=== PATIENT | female | born 1945 | race Caucasian/White ===

== ENCOUNTER 2018-11-04 12:44 | Inpatient (IN) ==
[2018-11-04] MEDS ORDERED: Bisacodyl 10 MG RECTAL SUPPOSITORY RC PRN (15:55)
[2018-11-04] MEDS ORDERED: INSULIN ASPART 5 UNIT SQ SCH (17:00)
[2018-11-04] MEDS: Insulin LISPRO 300 UNITS/3 ML VIAL SQ SCH ×3 (17:41→21:24)
[2018-11-04] MEDS: *HR* OxyCODONE/APAP 5/325 TABLET PO PRN (17:41)
[2018-11-04] MEDS: *HR* Glimepiride 2 MG TABLET PO SCH (21:22)
[2018-11-04] MEDS: Gabapentin 300 MG CAPSULE PO SCH (21:23)
[2018-11-04] MEDS: Amoxicillin 250 MG CHEWABLE TABLET PO SCH (21:23)
[2018-11-04] MEDS: Insulin DETEMIR 100 UNIT/ML X5UNITS SQ SCH (21:23)
[2018-11-04] MEDS: cloNIDine HCl 0.1 MG TABLET PO SCH (21:23)
[2018-11-04] MEDS: Nystatin POWDER 30 GM BOTTLE TP SCH (21:39)
[2018-11-05] MEDS: *HR* Enoxaparin 30 MG/0.3 ML SYRINGE SQ SCH (05:53)
[2018-11-05 07:22] LABS: Basophils # 0.1 K/mcL (0.0-0.2); Basophils % 0.5 %; Eosinophils # 0.6 K/mcL (0.0-0.6); Eosinophils % 3.5 %; Hematocrit 27.9 % (35.3-44.9); Hemoglobin 9.1 g/dL (11.5-15.4); Immature Granulocytes % 13.5 % (0-4); Lymphocytes # 3.1 K/mcL (0.6-4.6); Lymphocytes % 18.9 %; Mean Corpuscular HGB Conc 32.6 g/dL (31.6-35.5); Mean Corpuscular Hemoglobin 29.4 pg (28.0-33.3); Mean Corpuscular Volume 90.3 fL (83.0-100.0); Monocytes # 1.4 K/mcL (0.0-1.3); Monocytes % 8.5 %; Neutrophils # 9.1 K/mcL (1.6-8.9); Nucleated Red Blood Cells 0.3 /100 WBC (0); Platelet Count 539 K/mcL (140-400); Red Blood Count 3.09 M/mcL (3.82-4.97); Red Cell Distribution Width 14.4 % (11.5-14.5); Segmented Neutrophils % 55.1 %; White Blood Count 16.5 K/mcL (4.3-11.1)
[2018-11-05] MEDS: Insulin LISPRO 300 UNITS/3 ML VIAL SQ SCH ×6 (07:58→21:33)
[2018-11-05 08:11] LABS: Albumin 2.7 g/dL (3.5-5.7); Albumin/Globulin Ratio 0.8 (1.1-2.2); Bilirubin,Total 0.4 mg/dL (0.3-1.0); Calcium 9.5 mg/dL (8.6-10.3); Globulin 3.5 g/dL (2.4-3.5); Magnesium 1.5 mg/dL (1.6-2.6); Potassium 4.1 mEq/L (3.5-5.1); Total Protein 6.2 g/dL (6.4-8.9)
[2018-11-05 08:25] LABS: Platelet Estimate Increased (Normal)
[2018-11-05] MEDS ORDERED: Fluconazole 100 MG TABLET PO SCH (09:00)
[2018-11-05] MEDS: *HR* OxyCODONE/APAP 5/325 TABLET PO PRN ×4 (09:00→21:30)
[2018-11-05] MEDS: Nystatin POWDER 30 GM BOTTLE TP SCH ×4 (09:00→21:33)
[2018-11-05] MEDS: Amoxicillin 250 MG CHEWABLE TABLET PO SCH ×3 (09:01→21:32)
[2018-11-05] MEDS: cloNIDine HCl 0.1 MG TABLET PO SCH ×2 (09:01→21:32)
[2018-11-05] MEDS: Cholecalciferol (D-3) 1,000 UNIT (25MCG) TABLET PO SCH (09:01)
[2018-11-05 09:22] LABS: Folate 12.1 ng/mL (3.0-16.0)
--- NOTE | 2018-11-05 12:32 | Internal Med History&Physical ---
Date of Encounter: 11/05/18 Time of Encounter: 12:00 Assessment and Plan (1) Degloving injury of left lower leg Current visit: No Status: Acute Status post surgical repair with skin graft 10/24/2018. Continue present Rx. Qualifiers: Encounter type: initial encounter Qualified Code(s): S81.802A - Unspecified open wound, left lower leg, initial encounter (2) Anemia Current visit: Yes Status: Acute Anemia testing today showed iron 26, transferrin saturation 12%, transferrin 155, ferritin 200, B12 247, and folate 12.1. She will be given a B12 injection and start oral B12 supplement. Ferrous sulfate with ascorbic acid will be started. CBC will be monitored. Qualifiers: Anemia type: unspecified type Qualified Code(s): D64.9 - Anemia, unspecified (3) CKD (chronic kidney disease) stage 3, GFR 30-59 ml/min Current visit: Yes Status: Chronic Present since May 2014. Patient was unaware of this. Renal indices will be monitored. (4) Hypomagnesemia Current visit: Yes Status: Acute Magnesium level was 1.5 today. Supplemental magnesium will be given. (5) Diabetes Current visit: No Status: Chronic Hemoglobin A1c was 13.2% on 11/01/2018. Continue Amaryl, Levemir/Lantus, and Accu-Cheks with SSI. Qualifiers: Diabetes mellitus type: type 2 Diabetes mellitus meterman insulin use: with meterman use Diabetes mellitus complication status: with hyperglycemia Qualified Code(s): E11.65 - Type 2 diabetes mellitus with hyperglycemia; Z79.4 - FPC (current) use of insulin (6) HTN (hypertension) Current visit: No Status: Chronic Continue clonidine Qualifiers: Hypertension type: essential hypertension Qualified Code(s): I10 - Essential (primary) hypertension (7) UTI (urinary tract infection) Current visit: No Status: Suspected Continue amoxicillin Qualifiers: Urinary tract infection type: acute cystitis Hematuria presence: without hematuria Qualified Code(s): N30.00 - Acute cystitis without hematuria (8) TARA treated with BiPAP Current visit: No Status: Chronic Continue BiPAP at bedtime Internal Medicine - H&P: HPI Chief complaint: Leg laceration Admitted From: Hospital to Hospital Transfer Plans for Post Hospital Care: Home History of present illness: Ms. Fiore is a 73 year old female was hospitalized at [facility] October 24 after experiencing a complex degloving left lower leg laceration from a fall at [employer]. She underwent surgical repair with debridement, and complex closure with split thickness skin graft. A wound VAC was used initially but discontinued on postop day 7. She remained stable postoperatively and was discharged to [facility] swing bed for ongoing care needs. Merlyn skeletal history is significant otherwise for chronic low back pain. She has had bilateral carpal tunnel surgery. She denies gout or significant DJD. 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 - Social History Smoking Status: Never smoker Smokeless Tobacco Status: No Alcohol use: none Drug use: none - Family History Father Hx Family Cardiac Disorders: Yes Internal Medicine - H&P: Meds Glimepiride [Amaryl] 4 mg PO HS 10/24/18 [History] Insulin ASPART [NovoLOG] 5 unit SQ TIDWM 10/24/18 [History] Insulin Glargine [Lantus] 40 units SQ HS 10/24/18 [History] Rosuvastatin Calcium [Crestor] 10 mg PO DAILY 10/24/18 [History] cloNIDine HCl [CloNIDine HCl] 0.1 mg PO BID 10/24/18 [History] Cholecalciferol (D-3) [Vitamin D] 5,000 unit PO DAILY 10/25/18 [History] Amoxicillin [Amoxil] 500 mg PO TID capsule 11/04/18 [Rx] Bisacodyl [Dulcolax] 10 mg RC HS PRN supp.rect 11/04/18 [Rx] Clindamycin [Cleocin] 300 mg PO Q8HR capsule 11/04/18 [Rx] Docusate [Colace] 100 mg PO BID capsule 11/04/18 [Rx] Fluconazole [Diflucan] 200 mg PO DAILY udc 11/04/18 [Rx] Gabapentin [Neurontin] 300 mg PO HS capsule 11/04/18 [Rx] Insulin LISPRO [HumaLOG] 0 units SQ HS vial 11/04/18 [Rx] Insulin LISPRO [HumaLOG] 0 units SQ TIDAC vial 11/04/18 [Rx] Insulin LISPRO [HumaLOG] 10 units SQ TIDWM vial 11/04/18 [Rx] Meclizine [Antivert] 25 mg PO TID PRN tablet 11/04/18 [Rx] Metoprolol [Lopressor] 5 mg IVP Q6HR PRN vial 11/04/18 [Rx] Nystatin POWDER [Nystop] 1 appl TP TID bottle 11/04/18 [Rx] Polyethylene Glycol 3350 [MiraLAX] 17 gm PO DAILY powd.pack 11/04/18 [Rx] Allergy/AdvReac Type Severity Reaction Status Date / Time morphine Allergy Hives Verified 10/25/18 21:01 propoxyphene [From Darvon] Allergy Hives Verified 10/25/18 21:01 Sulfa (Sulfonamide Allergy Hives Verified 10/25/18 21:01 Antibiotics) latex AdvReac Rash Verified 10/29/18 08:33 All Systems PM: A 10-system review of systems was performed and is negative for pertinent findings except as documented above in the HPI. Review of systems: Gen.: Her weight has been stable for several months Cardiovascular: She has history of hypertension. She denies CA heart failure DVT or pulmonary embolus. She states she gets occasional chest pain on exertion which quickly resolves with rest. Respiratory: She is a lifelong nonsmoker and denies chronic lung disease. She has been diagnosed with TARA and prescribed BiPAP but states she does not use it regularly. GI: She has had cholecystectomy. She denies disorders of her liver or exocrine pancreas : She has had UTI in the past. She denies other kidney or bladder disorders. Neurologic: She denies large distribution strokes or seizures. Endocrine: She was diagnosed with DM 2 approximately 2003. She has hyperlipidemia but denies thyroid disease. Hematology/oncology: She was unaware she had anemia on labs after admission to [facility]. She denies internal malignancies or other blood disorders. Psychiatric: She has anxiety but denies depression or other mental health issues [place] skeletal: As per history of present illness - Constitutional Vitals: Temp Pulse Resp BP Pulse Ox 98.5 F 103 18 141/67 94 11/05/18 06:40 11/05/18 06:40 11/05/18 06:40 11/05/18 06:40 11/05/18 06:40 Exam: Gen.: She is a well-developed morbidly obese female sitting in a chair at bedside who appears in no acute distress HEENT: Head is atraumatic and normocephalic. Eyes: EOMI. There is no scleral icterus. Mouth: Mucosa is moist. Neck: Supple and nontender. There is no thyromegaly or adenopathy noted. Heart: Regular without murmurs gallops or ectopics Lungs: No wheezes or crackles are heard. Abdomen: She has a very large abdomen. It is soft and nontender to palpation. Exam is limited because she is in the seated position. Extremities: The right leg is presently wrapped in an elastic wrap over gauze which I did not remove. I examined the leg yesterday (unwrapped) which showed skin graft intact with minimal surface exudate. There is a eschar/necrotic area approximately 6-8 cm diameter in the mid anterior calf area. Surgical alex are in place. There is 3-4+ edema of the lower legs and dorsum of the feet bilaterally. Neurologic: Mental status: She is talkative and a good historian. Cranial nerves: Smile is symmetric. Forehead wrinkles bilaterally. Tongue protrudes midline. EOMI. Motor: There is no pronator drift. Cerebellar: Finger to nose is intact bilaterally. Skin: Warm and dry Internal Med - H&P Results - Labs CBC & Chem 7: 11/05/18 06:48 11/05/18 06:48 Labs: Short CBC 11/05/18 Range/Units 06:48 WBC 16.5 H (4.3-11.1) K/mcL Hgb 9.1 L (11.5-15.4) g/dL Hct 27.9 L (35.3-44.9) % Plt Count 539 H (140-400) K/mcL Neutrophils # 9.1 H (1.6-8.9) K/mcL BMP 11/05/18 06:48 Sodium 140 Potassium 4.1 Chloride 106 Carbon Dioxide 25 BUN 28 H Creatinine 1.16 Glucose 137 H Calcium 9.5 Liver Function 11/05/18 Range/Units 06:48 Total Bilirubin 0.4 (0.3-1.0) mg/dL AST 20 (13-39) Units/L ALT 16 (7-52) Units/L Alkaline Phosphatase 304 H (34-104) Units/L Albumin 2.7 L (3.5-5.7) g/dL
[2018-11-05] MEDS ORDERED: Cyanocobalamin (B-12) 1,000 MCG/ML VIAL IM ONE (12:51)
[2018-11-05] MEDS ORDERED: Bumetanide 1 MG TABLET PO ONE (12:53)
[2018-11-05] MEDS: Magnesium Oxide 400 MG TABLET PO SCH (14:06)
[2018-11-05] MEDS: Bumetanide 1 MG TABLET PO SCH (16:58)
[2018-11-05] MEDS: *HR* Glimepiride 2 MG TABLET PO SCH (21:31)
[2018-11-05] MEDS: Gabapentin 300 MG CAPSULE PO SCH (21:32)
[2018-11-05] MEDS ORDERED: Insulin DETEMIR 100 UNIT/ML per UNIT SQ ONE (21:36)
[2018-11-05] MEDS: Insulin DETEMIR 100 UNIT/ML X5UNITS SQ SCH (21:37)
[2018-11-06 06:12] LABS: Hemoglobin 8.3 g/dL (11.5-15.4); Mean Corpuscular HGB Conc 29.6 g/dL (31.6-35.5); Mean Corpuscular Hemoglobin 28.2 pg (28.0-33.3); Mean Corpuscular Volume 95.2 fL (83.0-100.0); Mean Platelet Volume 9.3 fL (9.4-12.4); Nucleated Red Blood Cells 0.8 /100 WBC (0); Platelet Count 450 K/mcL (140-400); Red Blood Count 2.94 M/mcL (3.82-4.97); Red Cell Distribution Width 15.1 % (11.5-14.5); White Blood Count 16.9 K/mcL (4.3-11.1)
[2018-11-06] MEDS: *HR* Enoxaparin 30 MG/0.3 ML SYRINGE SQ SCH (06:25)
[2018-11-06] MEDS: Ascorbic Acid 500 MG TABLET PO SCH (06:25)
[2018-11-06 06:32] LABS: Calcium 9.3 mg/dL (8.6-10.3); Potassium 4.3 mEq/L (3.5-5.1)
[2018-11-06 07:47] LABS: Eosinophils # 0.7 K/mcL (0.0-0.6); Hypochromasia Present (Not Present); Lymphocytes # 4.4 K/mcL (0.6-4.6); Microcytosis Present (Not Present); Monocytes # 0.7 K/mcL (0.0-1.3); Neutrophils # 9.1 K/mcL (1.6-8.9); Platelet Estimate Increased (Normal); Polychromasia 1+ (Not Present)
[2018-11-06] MEDS ORDERED: Fluconazole 100 MG TABLET PO SCH (09:00)
[2018-11-06] MEDS: *HR* OxyCODONE/APAP 5/325 TABLET PO PRN ×2 (09:16→21:15)
[2018-11-06] MEDS: Magnesium Oxide 400 MG TABLET PO SCH (09:17)
[2018-11-06] MEDS: Amoxicillin 250 MG CHEWABLE TABLET PO SCH ×2 (09:17→18:41)
[2018-11-06] MEDS: Cholecalciferol (D-3) 1,000 UNIT (25MCG) TABLET PO SCH (09:17)
[2018-11-06] MEDS: Cyanocobalamin (B-12) 1,000 MCG TABLET PO SCH (09:17)
[2018-11-06] MEDS: cloNIDine HCl 0.1 MG TABLET PO SCH ×2 (09:17→21:04)
[2018-11-06] MEDS: Bumetanide 1 MG TABLET PO SCH ×2 (09:17→17:37)
[2018-11-06] MEDS: Insulin LISPRO 300 UNITS/3 ML VIAL SQ SCH ×4 (09:18→21:05)
[2018-11-06] MEDS: Nystatin POWDER 30 GM BOTTLE TP SCH ×3 (09:18→21:09)
--- NOTE | 2018-11-06 16:17 | Internal Med Progress Note ---
Date of Encounter: 11/06/18 Time of Encounter: 16:10 - Assessment and plan (1) Degloving injury of left lower leg Current Visit: No Status: Acute Assessment and plan: November 06. Continue amoxicillin and present wound care. Qualifiers: Encounter type: initial encounter Qualified Code(s): S81.802A - Unspecified open wound, left lower leg, initial encounter (2) Anemia Current Visit: Yes Status: Acute Assessment and plan: November 06. Continue oral B12 and ferrous sulfate with ascorbic acid. Qualifiers: Anemia type: unspecified type Qualified Code(s): D64.9 - Anemia, unspecified (3) CKD (chronic kidney disease) stage 3, GFR 30-59 ml/min Current Visit: Yes Status: Chronic Assessment and plan: November 06. Monitor renal indices. (4) Hypomagnesemia Current Visit: Yes Status: Acute Assessment and plan: November 06. Continue supplemental magnesium oxide. (5) Diabetes Current Visit: No Status: Chronic Assessment and plan: November 06. Hemoglobin A1c was 13.2% on 11/01/2018. Continue Amaryl, Levemir/Lantus, and Accu-Cheks with SSI. Qualifiers: Diabetes mellitus type: type 2 Diabetes mellitus penitentiary insulin use: with penitentiary use Diabetes mellitus complication status: with hyperglycemia Qualified Code(s): E11.65 - Type 2 diabetes mellitus with hyperglycemia; Z79.4 - clinical application consultant (current) use of insulin (6) HTN (hypertension) Current Visit: No Status: Chronic Assessment and plan: November 06. Continue clonidine. Qualifiers: Hypertension type: essential hypertension Qualified Code(s): I10 - Essential (primary) hypertension (7) UTI (urinary tract infection) Current Visit: No Status: Suspected Assessment and plan: November 06. Enterococcus faecalis found on urine culture 10/28/2018. She has now completed nine-day course of antibiotics. Discontinue amoxicillin. Qualifiers: Urinary tract infection type: acute cystitis Hematuria presence: without hematuria Qualified Code(s): N30.00 - Acute cystitis without hematuria (8) TARA treated with BiPAP Current Visit: No Status: Chronic Assessment and plan: November 06. Continue BiPAP at bedtime. - Subjective Interval history: November 06. She has no new complaints. - Constitutional Vitals: Temp Pulse Resp BP Pulse Ox 98.6 F 92 18 127/63 90 11/06/18 07:41 11/06/18 07:41 11/06/18 07:41 11/06/18 07:41 11/06/18 07:41 Exam: She is lying in bed resting comfortably. She is in no acute distress. Her affect is overall cheerful. The left lower leg is wrapped. She has no significant change in the edema of the dorsum of the feet. I reviewed her medications and lab results. Internal Medicine: Result - Labs CBC & Chem 7: 11/06/18 06:01 11/06/18 06:01 Labs: Short CBC 11/06/18 Range/Units 06:01 WBC 16.9 H (4.3-11.1) K/mcL Hgb 8.3 L (11.5-15.4) g/dL Hct 28.0 L (35.3-44.9) % Plt Count 450 H (140-400) K/mcL Neutrophils # 9.1 H (1.6-8.9) K/mcL BMP 11/06/18 06:01 Sodium 136 Potassium 4.3 Chloride 103 Carbon Dioxide 25 BUN 32 H Creatinine 1.31 H Glucose 191 H Calcium 9.3 Consult Discharge Plan - Plan Referrals: NONE,PCP [Primary Care Provider] - 1 week
[2018-11-06] MEDS ORDERED: Mag Hydrox/Al Hydrox/Simeth 30 ML UDC PO ONE (18:52)
[2018-11-06] MEDS: *HR* Glimepiride 2 MG TABLET PO SCH (21:04)
[2018-11-06] MEDS: Gabapentin 300 MG CAPSULE PO SCH (21:04)
[2018-11-06] MEDS: Insulin DETEMIR 100 UNIT/ML X5UNITS SQ SCH (21:05)
[2018-11-07] MEDS: *HR* Enoxaparin 30 MG/0.3 ML SYRINGE SQ SCH (06:06)
[2018-11-07] MEDS: Ascorbic Acid 500 MG TABLET PO SCH (06:07)
[2018-11-07 07:30] LABS: Hematocrit 26.3 % (35.3-44.9); Hemoglobin 8.5 g/dL (11.5-15.4); Mean Corpuscular HGB Conc 32.3 g/dL (31.6-35.5); Mean Corpuscular Hemoglobin 29.1 pg (28.0-33.3); Mean Corpuscular Volume 90.1 fL (83.0-100.0); Mean Platelet Volume 8.7 fL (9.4-12.4); Nucleated Red Blood Cells 0.6 /100 WBC (0); Platelet Count 490 K/mcL (140-400); Red Blood Count 2.92 M/mcL (3.82-4.97); Red Cell Distribution Width 14.9 % (11.5-14.5); White Blood Count 19.3 K/mcL (4.3-11.1)
[2018-11-07] MEDS: Insulin LISPRO 300 UNITS/3 ML VIAL SQ SCH ×4 (07:43→21:26)
[2018-11-07 08:09] LABS: Eosinophils # 0.4 K/mcL (0.0-0.6); Monocytes # 1.2 K/mcL (0.0-1.3)
[2018-11-07 08:10] LABS: Dohle Bodies Present (Not Present); Lymphocytes # 3.1 K/mcL (0.6-4.6); Neutrophils # 13.1 K/mcL (1.6-8.9); Platelet Estimate Increased (Normal)
[2018-11-07] MEDS: *HR* OxyCODONE/APAP 5/325 TABLET PO PRN ×4 (08:18→23:19)
[2018-11-07] MEDS: Bumetanide 1 MG TABLET PO SCH ×2 (08:18→16:26)
[2018-11-07] MEDS: Magnesium Oxide 400 MG TABLET PO SCH (08:18)
[2018-11-07] MEDS: cloNIDine HCl 0.1 MG TABLET PO SCH ×2 (08:19→21:26)
[2018-11-07] MEDS: Cyanocobalamin (B-12) 1,000 MCG TABLET PO SCH (08:19)
[2018-11-07] MEDS: Cholecalciferol (D-3) 1,000 UNIT (25MCG) TABLET PO SCH (08:20)
[2018-11-07] MEDS: Nystatin POWDER 30 GM BOTTLE TP SCH (08:20)
--- NOTE | 2018-11-07 14:52 | Internal Med Progress Note ---
Date of Encounter: 11/07/18 Time of Encounter: 14:35 - Assessment and plan (1) Degloving injury of left lower leg Current Visit: No Status: Acute Assessment and plan: November 06. Continue amoxicillin and present wound care. November 07. Continue clindamycin and present wound care. Follow-up with surgeon will be arranged since leukocytosis is gradually worsening. Qualifiers: Encounter type: initial encounter Qualified Code(s): S81.802A - Unspecified open wound, left lower leg, initial encounter (2) Anemia Current Visit: Yes Status: Acute Assessment and plan: November 06. Continue oral B12 and ferrous sulfate with ascorbic acid. Qualifiers: Anemia type: unspecified type Qualified Code(s): D64.9 - Anemia, unspecified (3) CKD (chronic kidney disease) stage 3, GFR 30-59 ml/min Current Visit: Yes Status: Chronic Assessment and plan: November 06. Monitor renal indices. November 07. BUN and creatinine stable at 31 and 1.19 respectively with estimated GFR 45. Continue present Rx. (4) Hypomagnesemia Current Visit: Yes Status: Acute Assessment and plan: November 06. Continue supplemental magnesium oxide. November 07. Check magnesium level in a.m. (5) Diabetes Current Visit: No Status: Chronic Assessment and plan: November 06. Hemoglobin A1c was 13.2% on 11/01/2018. Continue Amaryl, Levemir/Lantus, and Accu-Cheks with SSI. 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 Continue clonidine. November 07. Continue clonidine and Lopressor Qualifiers: Hypertension type: essential hypertension Qualified Code(s): I10 - Essential (primary) hypertension (7) UTI (urinary tract infection) Current Visit: No Status: Suspected Assessment and plan: November 06. Enterococcus faecalis found on urine culture 10/28/2018. She has now completed nine-day course of antibiotics. Discontinue amoxicillin. Qualifiers: Urinary tract infection type: acute cystitis Hematuria presence: without hematuria Qualified Code(s): N30.00 - Acute cystitis without hematuria (8) TARA treated with BiPAP Current Visit: No Status: Chronic Assessment and plan: November 06. Continue BiPAP at bedtime. (9) Zinc deficiency Current Visit: Yes Status: Acute Assessment and plan: Zinc level low at 40.9. Start oral zinc sulfate. - Subjective Interval history: November 06. She has no new complaints. November 07. She has no new complaints. - Constitutional Vitals: Temp Pulse Resp BP Pulse Ox 98.4 F 90 18 134/66 92 11/07/18 06:27 11/07/18 06:27 11/07/18 06:27 11/07/18 06:27 11/07/18 06:27 Exam: She is resting comfortably in bed and appears in no acute distress. Her affect is overall cheerful. Right leg shows minimal change in erythema margins and there is fibrinous exudate scattered on the wound bed. Edema shows slight decrease overall. Groin and perineum dermatitis is widespread. I reviewed her medications and lab results. Internal Medicine: Result - Labs CBC & Chem 7: 11/07/18 07:20 11/07/18 07:20 Labs: Short CBC 11/07/18 Range/Units 07:20 WBC 19.3 H (4.3-11.1) K/mcL Hgb 8.5 L (11.5-15.4) g/dL Hct 26.3 L (35.3-44.9) % Plt Count 490 H (140-400) K/mcL Neutrophils # 13.1 H (1.6-8.9) K/mcL BMP 11/07/18 07:20 Sodium 136 Potassium 4.0 Chloride 102 Carbon Dioxide 29 BUN 31 H Creatinine 1.19 Glucose 109 H Calcium 9.0 Consult Discharge Plan - Plan Referrals: NONE,PCP [Primary Care Provider] - 1 week
[2018-11-07] MEDS: Ketoconazole 2% CRM 15 GM TUBE TP SCH ×2 (15:30→21:28)
[2018-11-07] MEDS ORDERED: Mag Hydrox/Al Hydrox/Simeth 30 ML UDC PO PRN (16:42)
[2018-11-07] MEDS: Lactobacillus 1 EACH CAP.SPRINK PO SCH (21:25)
[2018-11-07] MEDS: *HR* Glimepiride 2 MG TABLET PO SCH (21:26)
[2018-11-07] MEDS: Gabapentin 300 MG CAPSULE PO SCH (21:26)
[2018-11-07] MEDS: Insulin DETEMIR 100 UNIT/ML X5UNITS SQ SCH (21:27)
[2018-11-07] MEDS: Mag Hydrox/Al Hydrox/Simeth 30 ML UDC PO PRN (22:12)
[2018-11-08] MEDS: *HR* Enoxaparin 40 MG/0.4 ML SYRINGE SQ SCH (05:17)
[2018-11-08] MEDS: Ascorbic Acid 500 MG TABLET PO SCH (05:24)
[2018-11-08] MEDS: Ketoconazole 2% CRM 15 GM TUBE TP SCH ×2 (05:26→08:05)
[2018-11-08 06:09] LABS: Basophils # 0.1 K/mcL (0.0-0.2); Basophils % 0.7 %; Eosinophils # 0.7 K/mcL (0.0-0.6); Eosinophils % 3.8 %; Hemoglobin 8.3 g/dL (11.5-15.4); Immature Granulocytes % 7.1 % (0-4); Lymphocytes % 19.2 %; Mean Corpuscular HGB Conc 31.9 g/dL (31.6-35.5); Mean Corpuscular Hemoglobin 28.7 pg (28.0-33.3); Mean Platelet Volume 8.8 fL (9.4-12.4); Monocytes # 1.2 K/mcL (0.0-1.3); Monocytes % 6.9 %; Nucleated Red Blood Cells 0.4 /100 WBC (0); Platelet Count 504 K/mcL (140-400); Red Blood Count 2.89 M/mcL (3.82-4.97); Red Cell Distribution Width 14.9 % (11.5-14.5); Segmented Neutrophils % 62.3 %; White Blood Count 17.4 K/mcL (4.3-11.1)
[2018-11-08 06:36] LABS: Calcium 9.1 mg/dL (8.6-10.3); Magnesium 1.7 mg/dL (1.6-2.6); Potassium 4.1 mEq/L (3.5-5.1)
[2018-11-08 06:47] LABS: Lymphocytes # 3.3 K/mcL (0.6-4.6); Neutrophils # 10.8 K/mcL (1.6-8.9)
[2018-11-08] MEDS: Insulin LISPRO 300 UNITS/3 ML VIAL SQ SCH ×4 (07:48→22:35)
[2018-11-08] MEDS: *HR* OxyCODONE/APAP 5/325 TABLET PO PRN ×4 (08:04→22:28)
[2018-11-08] MEDS: cloNIDine HCl 0.1 MG TABLET PO SCH ×2 (08:04→22:28)
[2018-11-08] MEDS: Lactobacillus 1 EACH CAP.SPRINK PO SCH ×2 (08:04→22:27)
[2018-11-08] MEDS: Cyanocobalamin (B-12) 1,000 MCG TABLET PO SCH (08:04)
[2018-11-08] MEDS: Zinc Sulfate 220 MG CAPSULE PO SCH (08:04)
[2018-11-08] MEDS: Magnesium Oxide 400 MG TABLET PO SCH (08:04)
[2018-11-08] MEDS: Cholecalciferol (D-3) 1,000 UNIT (25MCG) TABLET PO SCH (08:05)
[2018-11-08] MEDS: Bumetanide 1 MG TABLET PO SCH ×2 (08:05→17:05)
[2018-11-08 08:09] LABS: Anisocytosis 1+ (Not Present); Polychromasia 1+ (Not Present)
[2018-11-08 08:10] LABS: Platelet Estimate Normal (Normal); Toxic Granulation Present (Not Present)
[2018-11-08] MEDS: Mag Hydrox/Al Hydrox/Simeth 30 ML UDC PO PRN ×4 (08:16→22:57)
--- NOTE | 2018-11-08 11:22 | Internal Med Progress Note ---
Date of Encounter: 11/08/18 Time of Encounter: 11:15 - Assessment and plan (1) Degloving injury of left lower leg Current Visit: No Status: Acute Assessment and plan: November 06. Continue amoxicillin and present wound care. November 07. Continue clindamycin and present wound care. Follow-up with surgeon will be arranged since leukocytosis is gradually worsening. November 08. Clindamycin will be discontinued and IV vancomycin initiated per surgeon recommendation. Topical gentamicin with Santyl will be started. Debridement surgery will be arranged. Qualifiers: Encounter type: initial encounter Qualified Code(s): S81.802A - Unspecified open wound, left lower leg, initial encounter (2) Anemia Current Visit: Yes Status: Acute Assessment and plan: November 06. Continue oral B12 and ferrous sulfate with ascorbic acid. Qualifiers: Anemia type: unspecified type Qualified Code(s): D64.9 - Anemia, unspecified (3) CKD (chronic kidney disease) stage 3, GFR 30-59 ml/min Current Visit: Yes Status: Chronic Assessment and plan: November 06. Monitor renal indices. November 07. BUN and creatinine stable at 31 and 1.19 respectively with estimated GFR 45. Continue present Rx. (4) Hypomagnesemia Current Visit: Yes Status: Acute Assessment and plan: November 06. Continue supplemental magnesium oxide. November 07. Check magnesium level in a.m. November 08. Magnesium level improved to 1.7. Continue present Rx. (5) Diabetes Current Visit: No Status: Chronic Assessment and plan: November 06. Hemoglobin A1c was 13.2% on 11/01/2018. Continue Amaryl, Levemir/Lantus, and Accu-Cheks with SSI. November 08. Accu-Cheks acceptable. Continue present Rx. 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 Continue clonidine. November 07. Continue clonidine and Lopressor Qualifiers: Hypertension type: essential hypertension Qualified Code(s): I10 - Essential (primary) hypertension (7) UTI (urinary tract infection) Current Visit: No Status: Suspected Assessment and plan: November 06. Enterococcus faecalis found on urine culture 10/28/2018. She has now completed nine-day course of antibiotics. Discontinue amoxicillin. Qualifiers: Urinary tract infection type: acute cystitis Hematuria presence: without hematuria Qualified Code(s): N30.00 - Acute cystitis without hematuria (8) TARA treated with BiPAP Current Visit: No Status: Chronic Assessment and plan: November 06. Continue BiPAP at bedtime. (9) Zinc deficiency Current Visit: Yes Status: Acute Assessment and plan: November 07. Zinc level low at 40.9. Start oral zinc sulfate. November 08. Continue zinc sulfate. (10) Candidiasis Current Visit: No Status: Acute Assessment and plan: November 08. The surgeon recommended use of nystatin powder instead of ketocon azole. - Subjective Interval history: November 06. She has no new complaints. November 07. She has no new complaints. November 08. She has no new complaints. She saw Dr. Richardson today who feels additional surgery for debridement is needed. - Constitutional Vitals: Temp Pulse Resp BP Pulse Ox 98.8 F 94 20 131/63 90 11/08/18 07:31 11/08/18 07:31 11/08/18 07:31 11/08/18 07:31 11/08/18 07:31 Exam: She is resting comfortably in bed and appears in no acute distress. Her affect is overall cheerful. Edema shows no significant change. I reviewed her medications and lab results. Internal Medicine: Result - Labs CBC & Chem 7: 11/08/18 05:52 11/08/18 05:52 Labs: Short CBC 11/08/18 Range/Units 05:52 WBC 17.4 H (4.3-11.1) K/mcL Hgb 8.3 L (11.5-15.4) g/dL Hct 26.0 L (35.3-44.9) % Plt Count 504 H (140-400) K/mcL Neutrophils # 10.8 H (1.6-8.9) K/mcL BMP 11/08/18 05:52 Sodium 135 L Potassium 4.1 Chloride 99 Carbon Dioxide 28 BUN 33 H Creatinine 1.24 H Glucose 155 H Calcium 9.1 Consult Discharge Plan - Plan Referrals: NONE,PCP [Primary Care Provider] - 1 week
[2018-11-08] MEDS: Fluconazole 100 MG TABLET PO SCH (22:27)
[2018-11-08] MEDS: *HR* Glimepiride 2 MG TABLET PO SCH (22:28)
[2018-11-08] MEDS: Gabapentin 300 MG CAPSULE PO SCH (22:28)
[2018-11-08] MEDS: Nystatin POWDER 30 GM BOTTLE TP SCH (22:30)
[2018-11-08] MEDS: Insulin DETEMIR 100 UNIT/ML X5UNITS SQ SCH (22:34)
[2018-11-09] MEDS: Gentamicin Oint 15 GM TUBE TP SCH ×2 (03:46→10:33)
[2018-11-09] MEDS: *HR* Enoxaparin 40 MG/0.4 ML SYRINGE SQ SCH (04:52)
[2018-11-09] MEDS: Ascorbic Acid 500 MG TABLET PO SCH (04:52)
[2018-11-09] MEDS: *HR* OxyCODONE/APAP 5/325 TABLET PO PRN ×4 (04:56→20:18)
[2018-11-09] MEDS: Mag Hydrox/Al Hydrox/Simeth 30 ML UDC PO PRN ×2 (04:57→12:09)
[2018-11-09] MEDS: Insulin LISPRO 300 UNITS/3 ML VIAL SQ SCH ×4 (08:02→20:16)
[2018-11-09] MEDS: Lactobacillus 1 EACH CAP.SPRINK PO SCH ×2 (08:03→20:17)
[2018-11-09] MEDS: Cyanocobalamin (B-12) 1,000 MCG TABLET PO SCH (08:03)
[2018-11-09] MEDS: Zinc Sulfate 220 MG CAPSULE PO SCH (08:03)
[2018-11-09] MEDS: Cholecalciferol (D-3) 1,000 UNIT (25MCG) TABLET PO SCH (08:04)
[2018-11-09] MEDS: Fluconazole 100 MG TABLET PO SCH ×2 (08:05→20:17)
[2018-11-09] MEDS: Bumetanide 1 MG TABLET PO SCH ×2 (08:05→18:22)
[2018-11-09] MEDS: cloNIDine HCl 0.1 MG TABLET PO SCH ×2 (08:06→20:17)
[2018-11-09] MEDS: Magnesium Oxide 400 MG TABLET PO SCH (08:06)
[2018-11-09] MEDS: Nystatin POWDER 30 GM BOTTLE TP SCH ×2 (10:35→15:57)
--- NOTE | 2018-11-09 17:31 | Internal Med Progress Note ---
Date of Encounter: 11/09/18 Time of Encounter: 17:25 - Assessment and plan (1) Degloving injury of left lower leg Current Visit: No Status: Acute Assessment and plan: Continue wound care follow up with his surgeon Qualifiers: Encounter type: initial encounter Qualified Code(s): S81.802A - Unspecified open wound, left lower leg, initial encounter (2) Heat rash Current Visit: Yes Status: Acute Assessment and plan: Try to keep it to air and not trap moisture (3) Candidiasis Current Visit: No Status: Acute Assessment and plan: Continue nystatin and Diflucan to use layers of sheets instead of checks that trap in the moisture, I think the rash is bad enough to need both oral and local antifungal (4) Morbid (severe) obesity due to excess calories Current Visit: No Status: Chronic Assessment and plan: causes a challenge with healing (5) UTI (urinary tract infection) Current Visit: No Status: Suspected Assessment and plan: Nine-day course of antibiotics finished was amoxicillin for enterococcus faecalis Qualifiers: Urinary tract infection type: acute cystitis Hematuria presence: without hematuria Qualified Code(s): N30.00 - Acute cystitis without hematuria (6) Thrombocytosis Current Visit: No Status: Acute Assessment and plan: Monitor (7) TARA treated with BiPAP Current Visit: No Status: Chronic Assessment and plan: Encourage BiPAP use (8) CKD (chronic kidney disease) stage 3, GFR 30-59 ml/min Current Visit: Yes Status: Chronic Assessment and plan: Monitor and encourage water (9) Zinc deficiency Current Visit: Yes Status: Acute Assessment and plan: Supplement - Time Spent With Patient Greater than 35 minutes - Subjective Interval history: 73-year-old female with a history of a degloving injury to left lower extremity status post split thickness skin graft. She was admitted [facility] from October 24 through . She was admitted here for wound care and rehabilitation. Covering for Dr. Cantor this is my first visit. She also has severe anemia around 8.6 chronic kidney disease hypomagnesemia DM 2, hypertension, urinary tract infection with Enterococcus faecalis, TARA with BiPAP on the zinc deficiency, candidiasis. I was asked to see the patient because of a worsening rash. candidiasis on her lower back and buttock right side. apparently she is on nystatin and fluconazole. But she also has rash further on her back that is in her folds. Answer questions concerns addressed - Constitutional Vitals: Temp Pulse Resp BP Pulse Ox 98.8 F 86 15 119/52 93 11/09/18 07:00 11/09/18 07:00 11/09/18 07:00 11/09/18 07:00 11/09/18 07:00 Exam: General: Alert and oriented, no acute distress Lungs: Clear to auscultation bilaterally without wheezing or crackles Heart: Regular rate and rythms without murmer or rubs Abdomen: Soft, nontender, Extremities: Left lower extremity had an Chuy wrap with bandage and the top of that he could see his alex and area that needs debrided. Skin her lower back with scolded and her right buttock large area of candidiasis, her upper back had petechial rash-like rash Internal Medicine: Result - Labs CBC & Chem 7: 11/08/18 05:52 11/08/18 05:52 Consult Discharge Plan - Plan Referrals: NONE,PCP [Primary Care Provider] - 1 week
[2018-11-09] MEDS: *HR* Glimepiride 2 MG TABLET PO SCH (20:17)
[2018-11-09] MEDS: Gabapentin 300 MG CAPSULE PO SCH (20:17)
[2018-11-09] MEDS: Insulin DETEMIR 100 UNIT/ML X5UNITS SQ SCH (20:18)
[2018-11-10] MEDS: *HR* OxyCODONE/APAP 5/325 TABLET PO PRN ×3 (03:37→18:55)
[2018-11-10] MEDS: Ascorbic Acid 500 MG TABLET PO SCH (06:07)
[2018-11-10] MEDS: *HR* Enoxaparin 40 MG/0.4 ML SYRINGE SQ SCH (06:07)
[2018-11-10] MEDS: Insulin LISPRO 300 UNITS/3 ML VIAL SQ SCH ×4 (07:46→20:04)
[2018-11-10] MEDS: Zinc Sulfate 220 MG CAPSULE PO SCH (09:22)
[2018-11-10] MEDS: Cyanocobalamin (B-12) 1,000 MCG TABLET PO SCH (09:23)
[2018-11-10] MEDS: Fluconazole 100 MG TABLET PO SCH ×2 (09:23→20:03)
[2018-11-10] MEDS: Lactobacillus 1 EACH CAP.SPRINK PO SCH ×2 (09:23→20:03)
[2018-11-10] MEDS: cloNIDine HCl 0.1 MG TABLET PO SCH ×2 (09:23→20:03)
[2018-11-10] MEDS: Cholecalciferol (D-3) 1,000 UNIT (25MCG) TABLET PO SCH (09:23)
[2018-11-10] MEDS: Magnesium Oxide 400 MG TABLET PO SCH (09:23)
[2018-11-10] MEDS: Bumetanide 1 MG TABLET PO SCH ×2 (09:23→17:13)
[2018-11-10] MEDS: Nystatin POWDER 30 GM BOTTLE TP SCH ×2 (09:24→20:10)
[2018-11-10] MEDS: Gentamicin Oint 15 GM TUBE TP SCH (09:24)
[2018-11-10] MEDS: Mag Hydrox/Al Hydrox/Simeth 30 ML UDC PO PRN (12:31)
[2018-11-10] MEDS: hydrOXYzine pamoate 25 MG CAPSULE PO PRN (17:13)
[2018-11-10] MEDS: Gabapentin 300 MG CAPSULE PO SCH (20:03)
[2018-11-10] MEDS: Insulin DETEMIR 100 UNIT/ML X5UNITS SQ SCH (20:04)
[2018-11-10] MEDS: *HR* Glimepiride 2 MG TABLET PO SCH (20:04)
[2018-11-11] MEDS: hydrOXYzine pamoate 25 MG CAPSULE PO PRN ×3 (04:00→20:12)
[2018-11-11] MEDS: *HR* OxyCODONE/APAP 5/325 TABLET PO PRN ×3 (04:00→20:11)
[2018-11-11] MEDS: Gentamicin Oint 15 GM TUBE TP SCH (05:32)
[2018-11-11] MEDS: Ascorbic Acid 500 MG TABLET PO SCH (05:32)
[2018-11-11] MEDS: *HR* Enoxaparin 40 MG/0.4 ML SYRINGE SQ SCH (05:33)
[2018-11-11] MEDS: Cholecalciferol (D-3) 1,000 UNIT (25MCG) TABLET PO SCH (09:20)
[2018-11-11] MEDS: Lactobacillus 1 EACH CAP.SPRINK PO SCH ×2 (09:20→20:12)
[2018-11-11] MEDS: Nystatin POWDER 30 GM BOTTLE TP SCH ×2 (09:21→20:13)
[2018-11-11] MEDS: Cyanocobalamin (B-12) 1,000 MCG TABLET PO SCH (09:21)
[2018-11-11] MEDS: cloNIDine HCl 0.1 MG TABLET PO SCH ×2 (09:21→20:12)
[2018-11-11] MEDS: Bumetanide 1 MG TABLET PO SCH ×2 (09:21→16:44)
[2018-11-11] MEDS: Zinc Sulfate 220 MG CAPSULE PO SCH (09:21)
[2018-11-11] MEDS: Magnesium Oxide 400 MG TABLET PO SCH (09:21)
[2018-11-11] MEDS: Fluconazole 100 MG TABLET PO SCH ×2 (09:21→20:12)
[2018-11-11] MEDS: Insulin LISPRO 300 UNITS/3 ML VIAL SQ SCH ×4 (09:22→20:13)
[2018-11-11] MEDS: Mag Hydrox/Al Hydrox/Simeth 30 ML UDC PO PRN (16:45)
--- NOTE | 2018-11-11 16:49 | Internal Med Progress Note ---
Date of Encounter: 11/11/18 Time of Encounter: 16:40 - Assessment and plan (1) Degloving injury of left lower leg Current Visit: No Status: Acute Assessment and plan: November 06. Continue amoxicillin and present wound care. November 07. Continue clindamycin and present wound care. Follow-up with surgeon will be arranged since leukocytosis is gradually worsening. November 08. Clindamycin will be discontinued and IV vancomycin initiated per surgeon recommendation. Topical gentamicin with Santyl will be started. Debridement surgery will be arranged. Qualifiers: Encounter type: initial encounter Qualified Code(s): S81.802A - Unspecified open wound, left lower leg, initial encounter (2) Anemia Current Visit: Yes Status: Acute Assessment and plan: November 06. Continue oral B12 and ferrous sulfate with ascorbic acid. November 11. Recheck labs in a.m. Qualifiers: Anemia type: unspecified type Qualified Code(s): D64.9 - Anemia, unspecified (3) CKD (chronic kidney disease) stage 3, GFR 30-59 ml/min Current Visit: Yes Status: Chronic Assessment and plan: November 06. Monitor renal indices. November 07. BUN and creatinine stable at 31 and 1.19 respectively with estimated GFR 45. Continue present Rx. November 11. Recheck labs in a.m. (4) Hypomagnesemia Current Visit: Yes Status: Acute Assessment and plan: November 06. Continue supplemental magnesium oxide. November 07. Check magnesium level in a.m. November 08. Magnesium level improved to 1.7. Continue present Rx. (5) Diabetes Current Visit: No Status: Chronic Assessment and plan: November 06. Hemoglobin A1c was 13.2% on 11/01/2018. Continue Amaryl, Levemir/Lantus, and Accu-Cheks with SSI. November 08. Accu-Cheks acceptable. Continue present Rx. 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 Continue clonidine. November 07. Continue clonidine and Lopressor Qualifiers: Hypertension type: essential hypertension Qualified Code(s): I10 - Essential (primary) hypertension (7) UTI (urinary tract infection) Current Visit: No Status: Suspected Assessment and plan: November 06. Enterococcus faecalis found on urine culture 10/28/2018. She has now completed nine-day course of antibiotics. Discontinue amoxicillin. Qualifiers: Urinary tract infection type: acute cystitis Hematuria presence: without hematuria Qualified Code(s): N30.00 - Acute cystitis without hematuria (8) TARA treated with BiPAP Current Visit: No Status: Chronic Assessment and plan: November 06. Continue BiPAP at bedtime. (9) Zinc deficiency Current Visit: Yes Status: Acute Assessment and plan: November 07. Zinc level low at 40.9. Start oral zinc sulfate. November 08. Continue zinc sulfate. (10) Candidiasis Current Visit: No Status: Acute Assessment and plan: November 08. The surgeon recommended use of nystatin powder instead of ketoconazole. November 09. Continue oral Diflucan and topical nystatin powder - Subjective Interval history: November 06. She has no new complaints. November 07. She has no new complaints. November 08. She has no new complaints. She saw Dr. Richardson today who feels additional surgery for debridement is needed. November 11. She has no new complaints. She was given Vistaril by Dr. Hillman over the weekend for itching. She states her pruritus has improved. - Constitutional Vitals: Temp Pulse Resp BP Pulse Ox 98.5 F 90 18 144/67 90 11/11/18 07:48 11/11/18 07:48 11/11/18 07:48 11/11/18 07:48 11/11/18 07:48 Exam: She is resting comfortably in bed and appears in no acute distress. Edema has lessened in her feet. I reviewed her medications and lab results. Internal Medicine: Result - Labs CBC & Chem 7: 11/08/18 05:52 11/08/18 05:52 Consult Discharge Plan - Plan Referrals: NONE,PCP [Primary Care Provider] - 1 week
[2018-11-11] MEDS: Gabapentin 300 MG CAPSULE PO SCH (20:11)
[2018-11-11] MEDS: *HR* Glimepiride 2 MG TABLET PO SCH (20:11)
[2018-11-11] MEDS: Insulin DETEMIR 100 UNIT/ML X5UNITS SQ SCH (20:12)
[2018-11-12] MEDS: *HR* OxyCODONE/APAP 5/325 TABLET PO PRN ×4 (06:10→20:32)
[2018-11-12] MEDS: Ascorbic Acid 500 MG TABLET PO SCH (06:11)
[2018-11-12] MEDS: *HR* Enoxaparin 40 MG/0.4 ML SYRINGE SQ SCH (06:11)
[2018-11-12 07:42] LABS: Basophils # 0.1 K/mcL (0.0-0.2); Eosinophils # 0.8 K/mcL (0.0-0.6); Eosinophils % 6.2 %; Hemoglobin 8.5 g/dL (11.5-15.4); Immature Granulocytes % 4.7 % (0-4); Lymphocytes # 3.1 K/mcL (0.6-4.6); Lymphocytes % 23.8 %; Mean Corpuscular HGB Conc 31.5 g/dL (31.6-35.5); Mean Corpuscular Hemoglobin 28.5 pg (28.0-33.3); Mean Corpuscular Volume 90.6 fL (83.0-100.0); Mean Platelet Volume 8.8 fL (9.4-12.4); Monocytes # 1.1 K/mcL (0.0-1.3); Monocytes % 8.7 %; Neutrophils # 7.3 K/mcL (1.6-8.9); Nucleated Red Blood Cells 0.2 /100 WBC (0); Platelet Count 652 K/mcL (140-400); Red Blood Count 2.98 M/mcL (3.82-4.97); Segmented Neutrophils % 55.6 %; White Blood Count 13.1 K/mcL (4.3-11.1)
[2018-11-12] MEDS: Insulin LISPRO 300 UNITS/3 ML VIAL SQ SCH ×4 (08:10→20:35)
[2018-11-12 08:22] LABS: Calcium 9.3 mg/dL (8.6-10.3); Potassium 3.8 mEq/L (3.5-5.1)
[2018-11-12] MEDS: Zinc Sulfate 220 MG CAPSULE PO SCH (10:24)
[2018-11-12] MEDS: cloNIDine HCl 0.1 MG TABLET PO SCH ×2 (10:24→20:33)
[2018-11-12] MEDS: Lactobacillus 1 EACH CAP.SPRINK PO SCH ×2 (10:25→20:33)
[2018-11-12] MEDS: hydrOXYzine pamoate 25 MG CAPSULE PO PRN ×2 (10:25→18:00)
[2018-11-12] MEDS: Gentamicin Oint 15 GM TUBE TP SCH (10:25)
[2018-11-12] MEDS: Magnesium Oxide 400 MG TABLET PO SCH (10:25)
[2018-11-12] MEDS: Cholecalciferol (D-3) 1,000 UNIT (25MCG) TABLET PO SCH (10:25)
[2018-11-12] MEDS: Fluconazole 100 MG TABLET PO SCH ×2 (10:25→20:33)
[2018-11-12] MEDS: Cyanocobalamin (B-12) 1,000 MCG TABLET PO SCH (10:25)
[2018-11-12] MEDS: Bumetanide 1 MG TABLET PO SCH ×2 (10:25→18:00)
[2018-11-12] MEDS: Nystatin POWDER 30 GM BOTTLE TP SCH ×2 (10:26→20:33)
[2018-11-12] MEDS: *HR* Glimepiride 2 MG TABLET PO SCH (20:32)
[2018-11-12] MEDS: Gabapentin 300 MG CAPSULE PO SCH (20:33)
[2018-11-12] MEDS: Insulin DETEMIR 100 UNIT/ML X5UNITS SQ SCH (20:33)
[2018-11-13] MEDS: *HR* Enoxaparin 40 MG/0.4 ML SYRINGE SQ SCH (06:29)
[2018-11-13] MEDS: Ascorbic Acid 500 MG TABLET PO SCH (06:29)
[2018-11-13] MEDS: Lactobacillus 1 EACH CAP.SPRINK PO SCH ×2 (07:48→21:29)
[2018-11-13] MEDS: Cholecalciferol (D-3) 1,000 UNIT (25MCG) TABLET PO SCH (07:48)
[2018-11-13] MEDS: Cyanocobalamin (B-12) 1,000 MCG TABLET PO SCH (07:48)
[2018-11-13] MEDS: Fluconazole 100 MG TABLET PO SCH ×2 (07:49→21:29)
[2018-11-13] MEDS: Bumetanide 1 MG TABLET PO SCH ×2 (07:49→17:04)
[2018-11-13] MEDS: Magnesium Oxide 400 MG TABLET PO SCH (07:49)
[2018-11-13] MEDS: Zinc Sulfate 220 MG CAPSULE PO SCH (07:50)
[2018-11-13] MEDS: *HR* OxyCODONE/APAP 5/325 TABLET PO PRN ×4 (07:50→21:29)
[2018-11-13] MEDS: cloNIDine HCl 0.1 MG TABLET PO SCH ×2 (07:50→21:29)
[2018-11-13] MEDS: Insulin LISPRO 300 UNITS/3 ML VIAL SQ SCH ×4 (07:53→21:30)
[2018-11-13] MEDS: Nystatin POWDER 30 GM BOTTLE TP SCH ×2 (07:54→21:30)
[2018-11-13] MEDS: Gentamicin Oint 15 GM TUBE TP SCH (07:54)
--- NOTE | 2018-11-13 12:41 | Internal Med Progress Note ---
Date of Encounter: 11/13/18 Time of Encounter: 12:30 - Assessment and plan (1) Degloving injury of left lower leg Current Visit: No Status: Acute Assessment and plan: November 06. Continue amoxicillin and present wound care. November 07. Continue clindamycin and present wound care. Follow-up with surgeon will be arranged since leukocytosis is gradually worsening. November 08. Clindamycin will be discontinued and IV vancomycin initiated per surgeon recommendation. Topical gentamicin with Santyl will be started. Debridement surgery will be arranged. November 13. Follow up with wound clinic personnel 11/19/2018. Continue IV vanc omycin and topical gentamicin and Santyl. Qualifiers: Encounter type: initial encounter Qualified Code(s): S81.802A - Unspecified open wound, left lower leg, initial encounter (2) Anemia Current Visit: Yes Status: Acute Assessment and plan: November 06. Continue oral B12 and ferrous sulfate with ascorbic acid. November 11. Recheck labs in a.m. November 13. Hemoglobin stable at 8.5. Qualifiers: Anemia type: unspecified type Qualified Code(s): D64.9 - Anemia, unspecified (3) CKD (chronic kidney disease) stage 3, GFR 30-59 ml/min Current Visit: Yes Status: Chronic Assessment and plan: November 06. Monitor renal indices. November 07. BUN and creatinine stable at 31 and 1.19 respectively with estimated GFR 45. Continue present Rx. November 11. Recheck labs in a.m. November 13. BUN and creatinine stable at 20 and 1.17 respectively with estimated GFR 45. (4) Hypomagnesemia Current Visit: Yes Status: Acute Assessment and plan: November 06. Continue supplemental magnesium oxide. November 07. Check magnesium level in a.m. November 08. Magnesium level improved to 1.7. Continue present Rx. (5) Diabetes Current Visit: No Status: Chronic Assessment and plan: November 06. Hemoglobin A1c was 13.2% on 11/01/2018. Continue Amaryl, Levemir/Lantus, and Accu-Cheks with SSI. November 08. Accu-Cheks acceptable. Continue present Rx. 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 Continue clonidine. November 07. Continue clonidine and Lopressor Qualifiers: Hypertension type: essential hypertension Qualified Code(s): I10 - Essential (primary) hypertension (7) UTI (urinary tract infection) Current Visit: No Status: Suspected Assessment and plan: November 06. Enterococcus faecalis found on urine culture 10/28/2018. She has now completed nine-day course of antibiotics. Discontinue amoxicillin. Qualifiers: Urinary tract infection type: acute cystitis Hematuria presence: without hematuria Qualified Code(s): N30.00 - Acute cystitis without hematuria (8) TARA treated with BiPAP Current Visit: No Status: Chronic Assessment and plan: November 06. Continue BiPAP at bedtime. (9) Zinc deficiency Current Visit: Yes Status: Acute Assessment and plan: November 07. Zinc level low at 40.9. Start oral zinc sulfate. November 08. Continue zinc sulfate. (10) Candidiasis Current Visit: No Status: Acute Assessment and plan: November 08. The surgeon recommended use of nystatin powder instead of ketoconazole. November 09. Continue oral Diflucan and topical nystatin powder - Subjective Interval history: November 06. She has no new complaints. November 07. She has no new complaints. November 08. She has no new complaints. She saw Dr. Richardson today who feels additional surgery for debridement is needed. November 11. She has no new complaints. She was given Vistaril by Dr. Hillman over the weekend for itching. She states her pruritus has improved. November 13. She has no new complaints. She was seen by wound clinic staff at [facility] earlier today. She reports Dr. Bianchi did wound debridement with follow-up appointment scheduled for 11/19/2018. - Constitutional Vitals: Temp Pulse Resp BP Pulse Ox 98.2 F 88 16 168/69 92 11/13/18 07:31 11/13/18 07:31 11/13/18 07:31 11/13/18 07:31 11/13/18 07:31 Exam: She is resting comfortably in bed and appears in no acute distress. The left lower leg is wrapped in elastic wrap which I did not unwrap. The right leg shows decreased edema and erythema. Her affect is bright cheerful. I reviewed her medications and lab results. Internal Medicine: Result - Labs CBC & Chem 7: 11/12/18 07:18 11/12/18 07:18 Consult Discharge Plan - Plan Referrals: NONE,PCP [Primary Care Provider] - 1 week
[2018-11-13] MEDS: Mag Hydrox/Al Hydrox/Simeth 30 ML UDC PO PRN (13:11)
[2018-11-13] MEDS: *HR* Glimepiride 2 MG TABLET PO SCH (21:29)
[2018-11-13] MEDS: Insulin DETEMIR 100 UNIT/ML X5UNITS SQ SCH (21:29)
[2018-11-13] MEDS: Gabapentin 300 MG CAPSULE PO SCH (21:29)
[2018-11-14] MEDS: Ascorbic Acid 500 MG TABLET PO SCH (06:40)
[2018-11-14] MEDS: *HR* Enoxaparin 40 MG/0.4 ML SYRINGE SQ SCH (06:41)
[2018-11-14] MEDS: Insulin LISPRO 300 UNITS/3 ML VIAL SQ SCH ×4 (08:28→21:13)
[2018-11-14] MEDS: Cyanocobalamin (B-12) 1,000 MCG TABLET PO SCH (09:37)
[2018-11-14] MEDS: Zinc Sulfate 220 MG CAPSULE PO SCH (09:37)
[2018-11-14] MEDS: cloNIDine HCl 0.1 MG TABLET PO SCH ×2 (09:37→21:14)
[2018-11-14] MEDS: Cholecalciferol (D-3) 1,000 UNIT (25MCG) TABLET PO SCH (09:37)
[2018-11-14] MEDS: Fluconazole 100 MG TABLET PO SCH ×2 (09:37→21:14)
[2018-11-14] MEDS: Bumetanide 1 MG TABLET PO SCH ×2 (09:37→17:28)
[2018-11-14] MEDS: Lactobacillus 1 EACH CAP.SPRINK PO SCH ×2 (09:38→21:14)
[2018-11-14] MEDS: Gentamicin Oint 15 GM TUBE TP SCH (09:38)
[2018-11-14] MEDS: Magnesium Oxide 400 MG TABLET PO SCH (09:38)
[2018-11-14] MEDS: Nystatin POWDER 30 GM BOTTLE TP SCH ×2 (09:38→21:15)
[2018-11-14] MEDS: *HR* OxyCODONE/APAP 5/325 TABLET PO PRN ×3 (09:48→21:14)
[2018-11-14] MEDS: Gabapentin 300 MG CAPSULE PO SCH (21:14)
[2018-11-14] MEDS: Insulin DETEMIR 100 UNIT/ML X5UNITS SQ SCH (21:14)
[2018-11-14] MEDS: *HR* Glimepiride 2 MG TABLET PO SCH (21:14)
[2018-11-14] MEDS: hydrOXYzine pamoate 25 MG CAPSULE PO PRN (21:18)
[2018-11-15] MEDS: Ascorbic Acid 500 MG TABLET PO SCH (06:24)
[2018-11-15] MEDS: *HR* Enoxaparin 40 MG/0.4 ML SYRINGE SQ SCH (06:25)
[2018-11-15 06:26] LABS: Hematocrit 26.2 % (35.3-44.9); Mean Corpuscular HGB Conc 30.5 g/dL (31.6-35.5); Mean Corpuscular Hemoglobin 28.1 pg (28.0-33.3); Mean Corpuscular Volume 91.9 fL (83.0-100.0); Mean Platelet Volume 8.8 fL (9.4-12.4); Nucleated Red Blood Cells 0.5 /100 WBC (0); Platelet Count 698 K/mcL (140-400); Red Blood Count 2.85 M/mcL (3.82-4.97); Red Cell Distribution Width 15.3 % (11.5-14.5); White Blood Count 13.1 K/mcL (4.3-11.1)
[2018-11-15 06:41] LABS: Potassium 3.6 mEq/L (3.5-5.1)
[2018-11-15 08:13] LABS: Eosinophils # 0.5 K/mcL (0.0-0.6); Lymphocytes # 2.6 K/mcL (0.6-4.6); Microcytosis Present (Not Present); Neutrophils # 8.4 K/mcL (1.6-8.9); Platelet Estimate Increased (Normal); Polychromasia 1+ (Not Present)
[2018-11-15 08:25] LABS: Calcium 9.6 mg/dL (8.6-10.3); Magnesium 2.1 mg/dL (1.6-2.6)
[2018-11-15] MEDS: Lactobacillus 1 EACH CAP.SPRINK PO SCH ×2 (09:55→22:19)
[2018-11-15] MEDS: Bumetanide 1 MG TABLET PO SCH ×2 (09:55→18:10)
[2018-11-15] MEDS: Zinc Sulfate 220 MG CAPSULE PO SCH (09:55)
[2018-11-15] MEDS: cloNIDine HCl 0.1 MG TABLET PO SCH ×2 (09:56→22:19)
[2018-11-15] MEDS: Magnesium Oxide 400 MG TABLET PO SCH (09:56)
[2018-11-15] MEDS: Cyanocobalamin (B-12) 1,000 MCG TABLET PO SCH (09:56)
[2018-11-15] MEDS: Cholecalciferol (D-3) 1,000 UNIT (25MCG) TABLET PO SCH (09:56)
[2018-11-15] MEDS: Fluconazole 100 MG TABLET PO SCH ×2 (09:57→22:19)
[2018-11-15] MEDS: Nystatin POWDER 30 GM BOTTLE TP SCH ×2 (10:03→22:18)
[2018-11-15] MEDS: Gentamicin Oint 15 GM TUBE TP SCH (10:03)
[2018-11-15] MEDS: Insulin LISPRO 300 UNITS/3 ML VIAL SQ SCH ×4 (10:03→22:18)
--- NOTE | 2018-11-15 14:23 | Internal Med Progress Note ---
Date of Encounter: 11/15/18 Time of Encounter: 14:10 - Assessment and plan (1) Degloving injury of left lower leg Current Visit: No Status: Acute Assessment and plan: November 06. Continue amoxicillin and present wound care. November 07. Continue clindamycin and present wound care. Follow-up with surgeon will be arranged since leukocytosis is gradually worsening. November 08. Clindamycin will be discontinued and IV vancomycin initiated per surgeon recommendation. Topical gentamicin with Santyl will be started. Debridement surgery will be arranged. November 13. Follow up with wound clinic personnel 11/19/2018. Continue IV vanc omycin and topical gentamicin and Santyl. Qualifiers: Encounter type: initial encounter Qualified Code(s): S81.802A - Unspecified open wound, left lower leg, initial encounter (2) Anemia Current Visit: Yes Status: Acute Assessment and plan: November 06. Continue oral B12 and ferrous sulfate with ascorbic acid. November 11. Recheck labs in a.m. November 13. Hemoglobin stable at 8.5. November 15. Hemoglobin is decreased slightly to 8.0. Continue to monitor. Qualifiers: Anemia type: unspecified type Qualified Code(s): D64.9 - Anemia, unspecified (3) CKD (chronic kidney disease) stage 3, GFR 30-59 ml/min Current Visit: Yes Status: Chronic Assessment and plan: November 06. Monitor renal indices. November 07. BUN and creatinine stable at 31 and 1.19 respectively with estimated GFR 45. Continue present Rx. November 11. Recheck labs in a.m. November 13. BUN and creatinine stable at 20 and 1.17 respectively with estimated GFR 45. November 15. BUN and creatinine have risen to 30 and 1.45 respectively with estimated GFR 35. Recheck in a.m. (4) Hypomagnesemia Current Visit: Yes Status: Acute Assessment and plan: November 06. Continue supplemental magnesium oxide. November 07. Check magnesium level in a.m. November 08. Magnesium level improved to 1.7. Continue present Rx. November 15. Magnesium level has risen to 2.1. Continue to monitor. (5) Diabetes Current Visit: No Status: Chronic Assessment and plan: November 06. Hemoglobin A1c was 13.2% on 11/01/2018. Continue Amaryl, Levemir/Lantus, and Accu-Cheks with SSI. November 08. Accu-Cheks acceptable. Continue present Rx. Qualifiers: Diabetes mellitus type: type 2 Diabetes mellitus negotiator insulin use: with negotiator use Diabetes mellitus complication status: with hyperglycemia Qualified Code(s): E11.65 - Type 2 diabetes mellitus with hyperglycemia; Z79.4 - assisted (current) use of insulin (6) HTN (hypertension) Current Visit: No Status: Chronic Assessment and plan: November 06. Continue clonidine. November 07. Continue clonidine and Lopressor Qualifiers: Hypertension type: essential hypertension Qualified Code(s): I10 - Essential (primary) hypertension (7) UTI (urinary tract infection) Current Visit: No Status: Suspected Assessment and plan: November 06. Enterococcus faecalis found on urine culture 10/28/2018. She has now completed nine-day course of antibiotics. Discontinue amoxicillin. Qualifiers: Urinary tract infection type: acute cystitis Hematuria presence: without hematuria Qualified Code(s): N30.00 - Acute cystitis without hematuria (8) TARA treated with BiPAP Current Visit: No Status: Chronic Assessment and plan: November 06. Continue BiPAP at bedtime. (9) Zinc deficiency Current Visit: Yes Status: Acute Assessment and plan: November 07. Zinc level low at 40.9. Start oral zinc sulfate. November 08. Continue zinc sulfate. (10) Candidiasis Current Visit: No Status: Acute Assessment and plan: November 08. The surgeon recommended use of nystatin powder instead of ketoconazole. November 09. Continue oral Diflucan and topical nystatin powder - Subjective Interval history: November 06. She has no new complaints. November 07. She has no new complaints. November 08. She has no new complaints. She saw Dr. Richardson today who feels additional surgery for debridement is needed. November 11. She has no new complaints. She was given Vistaril by Dr. Hillman over the weekend for itching. She states her pruritus has improved. November 13. She has no new complaints. She was seen by wound clinic staff at [facility] earlier today. She reports Dr. Bianchi did wound debridement with follow-up appointment scheduled for 11/19/2018. November 15. She has no new complaints - Constitutional Vitals: Temp Pulse Resp BP Pulse Ox 98.3 F 86 16 127/55 97 11/15/18 06:52 11/15/18 06:52 11/15/18 06:52 11/15/18 06:52 11/15/18 06:52 Exam: She is resting comfortably in bed and appears in no acute distress. The left lower leg is wrapped in elastic wrap. There is further slight decrease in edema and erythema of the right leg. I reviewed her medications and lab results. Internal Medicine: Result - Labs CBC & Chem 7: 11/15/18 05:35 11/15/18 05:35 Labs: Short CBC 11/15/18 Range/Units 05:35 WBC 13.1 H (4.3-11.1) K/mcL Hgb 8.0 L (11.5-15.4) g/dL Hct 26.2 L (35.3-44.9) % Plt Count 698 H (140-400) K/mcL Neutrophils # 8.4 (1.6-8.9) K/mcL BMP 11/15/18 05:35 Sodium 138 Potassium 3.6 Chloride 95 L Carbon Dioxide 34 H BUN 30 H Creatinine 1.45 H Glucose 105 Calcium 9.6 Consult Discharge Plan - Plan Referrals: NONE,PCP [Primary Care Provider] - 1 week
[2018-11-15] MEDS: *HR* OxyCODONE/APAP 5/325 TABLET PO PRN ×2 (16:15→22:22)
[2018-11-15] MEDS: hydrOXYzine pamoate 25 MG CAPSULE PO PRN (16:33)
[2018-11-15] MEDS: Insulin DETEMIR 100 UNIT/ML X5UNITS SQ SCH (22:17)
[2018-11-15] MEDS: *HR* Glimepiride 2 MG TABLET PO SCH (22:18)
[2018-11-15] MEDS: Gabapentin 300 MG CAPSULE PO SCH (22:19)
[2018-11-16 05:55] LABS: Basophils # 0.1 K/mcL (0.0-0.2); Basophils % 0.9 %; Eosinophils # 1.2 K/mcL (0.0-0.6); Eosinophils % 9.2 %; Hematocrit 28.4 % (35.3-44.9); Hemoglobin 8.8 g/dL (11.5-15.4); Lymphocytes # 2.6 K/mcL (0.6-4.6); Lymphocytes % 20.8 %; Mean Corpuscular Hemoglobin 28.2 pg (28.0-33.3); Mean Platelet Volume 8.7 fL (9.4-12.4); Monocytes # 1.3 K/mcL (0.0-1.3); Monocytes % 10.2 %; Nucleated Red Blood Cells 0.2 /100 WBC (0); Platelet Count 667 K/mcL (140-400); Red Blood Count 3.12 M/mcL (3.82-4.97); Red Cell Distribution Width 14.9 % (11.5-14.5); Segmented Neutrophils % 53.9 %; White Blood Count 12.7 K/mcL (4.3-11.1)
[2018-11-16 06:00] LABS: Neutrophils # 6.9 K/mcL (1.6-8.9)
[2018-11-16] MEDS: *HR* Enoxaparin 40 MG/0.4 ML SYRINGE SQ SCH (06:17)
[2018-11-16] MEDS: Ascorbic Acid 500 MG TABLET PO SCH (06:17)
[2018-11-16 06:21] LABS: Calcium 9.7 mg/dL (8.6-10.3); Potassium 3.4 mEq/L (3.5-5.1)
[2018-11-16] MEDS: Bumetanide 1 MG TABLET PO SCH ×2 (09:52→17:24)
[2018-11-16] MEDS: Zinc Sulfate 220 MG CAPSULE PO SCH (09:53)
[2018-11-16] MEDS: *HR* OxyCODONE/APAP 5/325 TABLET PO PRN (09:53)
[2018-11-16] MEDS: cloNIDine HCl 0.1 MG TABLET PO SCH ×2 (09:53→20:48)
[2018-11-16] MEDS: Lactobacillus 1 EACH CAP.SPRINK PO SCH ×2 (09:53→20:48)
[2018-11-16] MEDS: Magnesium Oxide 400 MG TABLET PO SCH (09:53)
[2018-11-16] MEDS: Fluconazole 100 MG TABLET PO SCH ×2 (09:53→20:48)
[2018-11-16] MEDS: Cholecalciferol (D-3) 1,000 UNIT (25MCG) TABLET PO SCH (09:56)
[2018-11-16] MEDS: Nystatin POWDER 30 GM BOTTLE TP SCH ×2 (09:56→20:49)
[2018-11-16] MEDS: Cyanocobalamin (B-12) 1,000 MCG TABLET PO SCH (09:56)
[2018-11-16] MEDS: Insulin LISPRO 300 UNITS/3 ML VIAL SQ SCH ×4 (09:57→20:48)
[2018-11-16] MEDS: Gentamicin Oint 15 GM TUBE TP SCH (09:57)
[2018-11-16] MEDS: hydrOXYzine pamoate 25 MG CAPSULE PO PRN (17:24)
[2018-11-16] MEDS: Gabapentin 300 MG CAPSULE PO SCH (20:48)
[2018-11-16] MEDS: *HR* Glimepiride 2 MG TABLET PO SCH (20:48)
[2018-11-16] MEDS: Insulin DETEMIR 100 UNIT/ML X5UNITS SQ SCH (20:48)
[2018-11-17] MEDS: *HR* OxyCODONE/APAP 5/325 TABLET PO PRN ×3 (00:58→21:55)
[2018-11-17] MEDS: hydrOXYzine pamoate 25 MG CAPSULE PO PRN ×2 (06:43→14:41)
[2018-11-17] MEDS: Ascorbic Acid 500 MG TABLET PO SCH (06:43)
[2018-11-17] MEDS: *HR* Enoxaparin 40 MG/0.4 ML SYRINGE SQ SCH (06:43)
[2018-11-17] MEDS: Lactobacillus 1 EACH CAP.SPRINK PO SCH ×2 (08:59→21:55)
[2018-11-17] MEDS: Zinc Sulfate 220 MG CAPSULE PO SCH (09:00)
[2018-11-17] MEDS: cloNIDine HCl 0.1 MG TABLET PO SCH ×2 (09:00→21:55)
[2018-11-17] MEDS: Fluconazole 100 MG TABLET PO SCH ×2 (09:00→21:55)
[2018-11-17] MEDS: Magnesium Oxide 400 MG TABLET PO SCH (09:00)
[2018-11-17] MEDS: Bumetanide 1 MG TABLET PO SCH ×2 (09:00→17:05)
[2018-11-17] MEDS: Cyanocobalamin (B-12) 1,000 MCG TABLET PO SCH (09:00)
[2018-11-17] MEDS: Cholecalciferol (D-3) 1,000 UNIT (25MCG) TABLET PO SCH (09:00)
[2018-11-17] MEDS: Gentamicin Oint 15 GM TUBE TP SCH (09:06)
[2018-11-17] MEDS: Insulin LISPRO 300 UNITS/3 ML VIAL SQ SCH ×4 (09:06→21:56)
[2018-11-17] MEDS: Nystatin POWDER 30 GM BOTTLE TP SCH ×2 (09:07→21:56)
--- NOTE | 2018-11-17 14:54 | Internal Med Progress Note ---
Date of Encounter: 11/17/18 Time of Encounter: 14:45 - Assessment and plan (1) Degloving injury of left lower leg Current Visit: No Status: Acute Assessment and plan: November 06. Continue amoxicillin and present wound care. November 07. Continue clindamycin and present wound care. Follow-up with surgeon will be arranged since leukocytosis is gradually worsening. November 08. Clindamycin will be discontinued and IV vancomycin initiated per surgeon recommendation. Topical gentamicin with Santyl will be started. Debridement surgery will be arranged. November 13. Follow up with wound clinic personnel 11/19/2018. Continue IV vanc omycin and topical gentamicin and Santyl. November 17. WBC decreased to 12.7 with less left shift on differential on 11/16/2018. Continue present Rx. Qualifiers: Encounter type: initial encounter Qualified Code(s): S81.802A - Unspecified open wound, left lower leg, initial encounter (2) Anemia Current Visit: Yes Status: Acute Assessment and plan: November 06. Continue oral B12 and ferrous sulfate with ascorbic acid. November 11. Recheck labs in a.m. November 13. Hemoglobin stable at 8.5. November 15. Hemoglobin is decreased slightly to 8.0. Continue to monitor. Qualifiers: Anemia type: unspecified type Qualified Code(s): D64.9 - Anemia, unspecified (3) CKD (chronic kidney disease) stage 3, GFR 30-59 ml/min Current Visit: Yes Status: Chronic Assessment and plan: November 06. Monitor renal indices. November 07. BUN and creatinine stable at 31 and 1.19 respectively with estimated GFR 45. Continue present Rx. November 11. Recheck labs in a.m. November 13. BUN and creatinine stable at 20 and 1.17 respectively with estimated GFR 45. November 15. BUN and creatinine have risen to 30 and 1.45 respectively with estimated GFR 35. Recheck in a.m. November 17. BUN and creatinine stable at 27 and 1.44 respectively. Continue to monitor. (4) Hypomagnesemia Current Visit: Yes Status: Acute Assessment and plan: November 06. Continue supplemental magnesium oxide. November 07. Check magnesium level in a.m. November 08. Magnesium level improved to 1.7. Continue present Rx. November 15. Magnesium level has risen to 2.1. Continue to monitor. (5) Diabetes Current Visit: No Status: Chronic Assessment and plan: November 06. Hemoglobin A1c was 13.2% on 11/01/2018. Continue Amaryl, Levemir/Lantus, and Accu-Cheks with SSI. November 08. Accu-Cheks acceptable. Continue present Rx. 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 Continue clonidine. November 07. Continue clonidine and Lopressor Qualifiers: Hypertension type: essential hypertension Qualified Code(s): I10 - Essential (primary) hypertension (7) UTI (urinary tract infection) Current Visit: No Status: Resolved Assessment and plan: November 06. Enterococcus faecalis found on urine culture 10/28/2018. She has now completed nine-day course of antibiotics. Discontinue amoxicillin. Qualifiers: Urinary tract infection type: acute cystitis Hematuria presence: without hematuria Qualified Code(s): N30.00 - Acute cystitis without hematuria (8) TARA treated with BiPAP Current Visit: No Status: Chronic Assessment and plan: November 06. Continue BiPAP at bedtime. (9) Zinc deficiency Current Visit: Yes Status: Acute Assessment and plan: November 07. Zinc level low at 40.9. Start oral zinc sulfate. November 08. Continue zinc sulfate. (10) Candidiasis Current Visit: No Status: Acute Assessment and plan: November 08. The surgeon recommended use of nystatin powder instead of ketoconazole. November 09. Continue oral Diflucan and topical nystatin powder - Subjective Interval history: November 06. She has no new complaints. November 07. She has no new complaints. November 08. She has no new complaints. She saw Dr. Richardson today who feels additional surgery for debridement is needed. November 11. She has no new complaints. She was given Vistaril by Dr. Hillman over the weekend for itching. She states her pruritus has improved. November 13. She has no new complaints. She was seen by wound clinic staff at [facility] earlier today. She reports Dr. Bianchi did wound debridement with follow-up appointment scheduled for 11/19/2018. November 15. She has no new complaints November 17. She has no new complaints. - Constitutional Vitals: Temp Pulse Resp BP Pulse Ox 98.2 F 77 20 137/61 95 11/17/18 07:49 11/17/18 07:49 11/17/18 07:49 11/17/18 07:49 11/17/18 07:49 Exam: She is resting comfortably in bed and appears in no acute distress. Her affect is overall cheerful. I reviewed her medications and lab results. Internal Medicine: Result - Labs CBC & Chem 7: 11/16/18 05:10 11/16/18 05:10 Consult Discharge Plan - Plan Referrals: NONE,PCP [Primary Care Provider] - 1 week
[2018-11-17] MEDS: *HR* Glimepiride 2 MG TABLET PO SCH (21:55)
[2018-11-17] MEDS: Insulin DETEMIR 100 UNIT/ML X5UNITS SQ SCH (21:55)
[2018-11-17] MEDS: Gabapentin 300 MG CAPSULE PO SCH (21:55)
[2018-11-17] MEDS: ALPRAZolam 0.5 MG TABLET PO PRN (23:08)
[2018-11-18] MEDS: Ascorbic Acid 500 MG TABLET PO SCH (06:31)
[2018-11-18] MEDS: *HR* Enoxaparin 40 MG/0.4 ML SYRINGE SQ SCH (06:31)
[2018-11-18 06:37] LABS: Basophils # 0.1 K/mcL (0.0-0.2); Basophils % 0.8 %; Eosinophils % 8.3 %; Hematocrit 26.6 % (35.3-44.9); Hemoglobin 8.3 g/dL (11.5-15.4); Lymphocytes # 2.8 K/mcL (0.6-4.6); Lymphocytes % 22.5 %; Mean Corpuscular HGB Conc 31.2 g/dL (31.6-35.5); Mean Corpuscular Hemoglobin 27.9 pg (28.0-33.3); Mean Corpuscular Volume 89.6 fL (83.0-100.0); Mean Platelet Volume 8.4 fL (9.4-12.4); Monocytes # 1.3 K/mcL (0.0-1.3); Monocytes % 10.5 %; Neutrophils # 6.7 K/mcL (1.6-8.9); Nucleated Red Blood Cells 0.2 /100 WBC (0); Platelet Count 554 K/mcL (140-400); Red Blood Count 2.97 M/mcL (3.82-4.97); Red Cell Distribution Width 15.3 % (11.5-14.5); Segmented Neutrophils % 53.9 %; White Blood Count 12.4 K/mcL (4.3-11.1)
[2018-11-18 06:58] LABS: Calcium 9.2 mg/dL (8.6-10.3); Potassium 3.9 mEq/L (3.5-5.1)
[2018-11-18] MEDS: *HR* OxyCODONE/APAP 5/325 TABLET PO PRN ×2 (07:49→21:18)
[2018-11-18] MEDS: Magnesium Oxide 400 MG TABLET PO SCH (10:00)
[2018-11-18] MEDS: Fluconazole 100 MG TABLET PO SCH ×2 (10:02→21:19)
[2018-11-18] MEDS: Insulin LISPRO 300 UNITS/3 ML VIAL SQ SCH ×4 (10:02→21:20)
[2018-11-18] MEDS: Zinc Sulfate 220 MG CAPSULE PO SCH (10:02)
[2018-11-18] MEDS: Lactobacillus 1 EACH CAP.SPRINK PO SCH ×2 (10:02→21:19)
[2018-11-18] MEDS: Cyanocobalamin (B-12) 1,000 MCG TABLET PO SCH (10:02)
[2018-11-18] MEDS: Bumetanide 1 MG TABLET PO SCH ×2 (10:02→16:08)
[2018-11-18] MEDS: cloNIDine HCl 0.1 MG TABLET PO SCH ×2 (10:02→21:19)
[2018-11-18] MEDS: Cholecalciferol (D-3) 1,000 UNIT (25MCG) TABLET PO SCH (10:02)
[2018-11-18] MEDS: Nystatin POWDER 30 GM BOTTLE TP SCH (16:12)
[2018-11-18] MEDS: Gentamicin Oint 15 GM TUBE TP SCH (21:12)
[2018-11-18] MEDS: Insulin DETEMIR 100 UNIT/ML X5UNITS SQ SCH (21:19)
[2018-11-18] MEDS: *HR* Glimepiride 2 MG TABLET PO SCH (21:19)
[2018-11-18] MEDS: Gabapentin 300 MG CAPSULE PO SCH (21:19)
[2018-11-19] MEDS: Nystatin POWDER 30 GM BOTTLE TP SCH ×3 (00:46→20:56)
[2018-11-19] MEDS: *HR* OxyCODONE/APAP 5/325 TABLET PO PRN ×2 (03:24→09:02)
[2018-11-19] MEDS: Gentamicin Oint 15 GM TUBE TP SCH (04:39)
[2018-11-19] MEDS: Ascorbic Acid 500 MG TABLET PO SCH (06:07)
[2018-11-19] MEDS: *HR* Enoxaparin 40 MG/0.4 ML SYRINGE SQ SCH (06:07)
[2018-11-19] MEDS: Bumetanide 1 MG TABLET PO SCH ×2 (09:01→17:07)
[2018-11-19] MEDS: Fluconazole 100 MG TABLET PO SCH ×2 (09:02→20:31)
[2018-11-19] MEDS: cloNIDine HCl 0.1 MG TABLET PO SCH ×2 (09:02→20:31)
[2018-11-19] MEDS: Cholecalciferol (D-3) 1,000 UNIT (25MCG) TABLET PO SCH (09:02)
[2018-11-19] MEDS: Magnesium Oxide 400 MG TABLET PO SCH (09:02)
[2018-11-19] MEDS: Lactobacillus 1 EACH CAP.SPRINK PO SCH ×2 (09:02→20:30)
[2018-11-19] MEDS: Zinc Sulfate 220 MG CAPSULE PO SCH (09:03)
[2018-11-19] MEDS: Cyanocobalamin (B-12) 1,000 MCG TABLET PO SCH (09:03)
[2018-11-19] MEDS: Insulin LISPRO 300 UNITS/3 ML VIAL SQ SCH ×4 (09:04→20:31)
[2018-11-19] MEDS: hydrOXYzine pamoate 25 MG CAPSULE PO PRN (09:19)
--- NOTE | 2018-11-19 11:23 | Internal Med Progress Note ---
Date of Encounter: 11/19/18 Time of Encounter: 11:10 - Assessment and plan (1) Degloving injury of left lower leg Current Visit: No Status: Acute Assessment and plan: November 06. Continue amoxicillin and present wound care. November 07. Continue clindamycin and present wound care. Follow-up with surgeon will be arranged since leukocytosis is gradually worsening. November 08. Clindamycin will be discontinued and IV vancomycin initiated per surgeon recommendation. Topical gentamicin with Santyl will be started. Debridement surgery will be arranged. November 13. Follow up with wound clinic personnel 11/19/2018. Continue IV vanc omycin and topical gentamicin and Santyl. November 17. WBC decreased to 12.7 with less left shift on differential on 11/16/2018. Continue present Rx. November 19. A mixup on arranging transportation caused her to miss today's scheduled wound care follow-up appointment. WBC further slightly decreased to 12.4 yesterday with no left shift. Recheck labs in a.m. Continue present wound care/dressing. Follow up with wound care reschedule for next week. Qualifiers: Encounter type: initial encounter Qualified Code(s): S81.802A - Unspecified open wound, left lower leg, initial encounter (2) Anemia Current Visit: Yes Status: Acute Assessment and plan: November 06. Continue oral B12 and ferrous sulfate with ascorbic acid. November 11. Recheck labs in a.m. November 13. Hemoglobin stable at 8.5. November 15. Hemoglobin is decreased slightly to 8.0. Continue to monitor. November 19. Hemoglobin stable at 8.3 yesterday. Recheck in a.m. Qualifiers: Anemia type: unspecified type Qualified Code(s): D64.9 - Anemia, unspecified (3) CKD (chronic kidney disease) stage 3, GFR 30-59 ml/min Current Visit: Yes Status: Chronic Assessment and plan: November 06. Monitor renal indices. November 07. BUN and creatinine stable at 31 and 1.19 respectively with estimated GFR 45. Continue present Rx. November 11. Recheck labs in a.m. November 13. BUN and creatinine stable at 20 and 1.17 respectively with estimated GFR 45. November 15. BUN and creatinine have risen to 30 and 1.45 respectively with estimated GFR 35. Recheck in a.m. November 17. BUN and creatinine stable at 27 and 1.44 respectively. Continue to monitor. November 19. BUN and creatinine were 35 and 1.54 respectively yesterday. Recheck in a.m. (4) Hypomagnesemia Current Visit: Yes Status: Acute Assessment and plan: November 06. Continue supplemental magnesium oxide. November 07. Check magnesium level in a.m. November 08. Magnesium level improved to 1.7. Continue present Rx. November 15. Magnesium level has risen to 2.1. Continue to monitor. November 19. Magnesium level stable at 2.0 yesterday. Continue present Rx. (5) Diabetes Current Visit: No Status: Chronic Assessment and plan: November 06. Hemoglobin A1c was 13.2% on 11/01/2018. Continue Amaryl, Levemir/ Lantus, and Accu-Cheks with SSI. November 08. Accu-Cheks acceptable. Continue present Rx. Qualifiers: Diabetes mellitus type: type 2 Diabetes mellitus rat exterminator insulin use: with rat exterminator use Diabetes mellitus complication status: with hyperglycemia Qualified Code(s): E11.65 - Type 2 diabetes mellitus with hyperglycemia; Z79.4 - intermediate manager (current) use of insulin (6) HTN (hypertension) Current Visit: No Status: Chronic Assessment and plan: November 06. Continue clonidine. November 07. Continue clonidine and Lopressor Qualifiers: Hypertension type: essential hypertension Qualified Code(s): I10 - Essential (primary) hypertension (7) TARA treated with BiPAP Current Visit: No Status: Chronic Assessment and plan: November 06. Continue BiPAP at bedtime. (8) Zinc deficiency Current Visit: Yes Status: Acute Assessment and plan: November 07. Zinc level low at 40.9. Start oral zinc sulfate. November 08. Continue zinc sulfate. (9) Candidiasis Current Visit: No Status: Acute Assessment and plan: November 08. The surgeon recommended use of nystatin powder instead of ketoconazole. November 09. Continue oral Diflucan and topical nystatin powder - Subjective Interval history: November 06. She has no new complaints. November 07. She has no new complaints. November 08. She has no new complaints. She saw Dr. Richardson today who feels additional surgery for debridement is needed. November 11. She has no new complaints. She was given Vistaril by Dr. Hillman over the weekend for itching. She states her pruritus has improved. November 13. She has no new complaints. She was seen by wound clinic staff at [facility] earlier today. She reports Dr. Bianchi did wound debridement with follow-up appointment scheduled for 11/19/2018. November 15. She has no new complaints November 17. She has no new complaints. November 19. She has no new complaints. - Constitutional Vitals: Temp Pulse Resp BP Pulse Ox 98.5 F 74 20 110/68 95 11/19/18 05:35 11/19/18 05:35 11/19/18 05:35 11/19/18 05:35 11/19/18 05:35 Exam: She is resting in a chair at bedside and appears in no acute distress. There is minimal residual exudate/slough on the left leg with good granulation tissue present. Several areas show bright red blood oozing from granulation tissue after removal of the dressing. There is a small area of eschar/necrosis in the wound at the proximal lateral edge. I reviewed her medications and lab results. Internal Medicine: Result - Labs CBC & Chem 7: 11/18/18 06:30 11/18/18 06:30 Consult Discharge Plan - Plan Referrals: NONE,PCP [Primary Care Provider] - 1 week
[2018-11-19] MEDS: Gabapentin 300 MG CAPSULE PO SCH (20:30)
[2018-11-19] MEDS: Acetaminophen 325 MG TABLET PO PRN (20:31)
[2018-11-19] MEDS: *HR* Glimepiride 2 MG TABLET PO SCH (20:31)
[2018-11-19] MEDS: Insulin DETEMIR 100 UNIT/ML X5UNITS SQ SCH (20:32)
[2018-11-20] MEDS: Ascorbic Acid 500 MG TABLET PO SCH (05:52)
[2018-11-20] MEDS: *HR* Enoxaparin 40 MG/0.4 ML SYRINGE SQ SCH (05:52)
[2018-11-20] MEDS: Insulin LISPRO 300 UNITS/3 ML VIAL SQ SCH ×4 (07:28→20:49)
[2018-11-20] MEDS: Mag Hydrox/Al Hydrox/Simeth 30 ML UDC PO PRN ×2 (08:33→13:08)
[2018-11-20] MEDS: Cholecalciferol (D-3) 1,000 UNIT (25MCG) TABLET PO SCH (09:53)
[2018-11-20] MEDS: Bumetanide 1 MG TABLET PO SCH ×2 (09:53→17:23)
[2018-11-20] MEDS: Lactobacillus 1 EACH CAP.SPRINK PO SCH ×2 (09:53→20:48)
[2018-11-20] MEDS: Magnesium Oxide 400 MG TABLET PO SCH (09:53)
[2018-11-20] MEDS: Cyanocobalamin (B-12) 1,000 MCG TABLET PO SCH (09:54)
[2018-11-20] MEDS: Zinc Sulfate 220 MG CAPSULE PO SCH (09:54)
[2018-11-20] MEDS: cloNIDine HCl 0.1 MG TABLET PO SCH ×2 (09:55→20:48)
[2018-11-20] MEDS: Fluconazole 100 MG TABLET PO SCH ×2 (09:55→20:48)
[2018-11-20] MEDS: Nystatin POWDER 30 GM BOTTLE TP SCH ×2 (09:56→20:49)
[2018-11-20] MEDS: hydrOXYzine pamoate 25 MG CAPSULE PO PRN (09:58)
[2018-11-20] MEDS: Acetaminophen 325 MG TABLET PO PRN (09:58)
[2018-11-20] MEDS: *HR* OxyCODONE/APAP 5/325 TABLET PO PRN (13:11)
[2018-11-20] MEDS: Gentamicin Oint 15 GM TUBE TP SCH (15:43)
[2018-11-20] MEDS: *HR* Glimepiride 2 MG TABLET PO SCH (20:48)
[2018-11-20] MEDS: Gabapentin 300 MG CAPSULE PO SCH (20:48)
[2018-11-20] MEDS: Insulin DETEMIR 100 UNIT/ML X5UNITS SQ SCH (20:48)
[2018-11-21] MEDS: Mag Hydrox/Al Hydrox/Simeth 30 ML UDC PO PRN ×3 (00:01→21:10)
[2018-11-21] MEDS: Ascorbic Acid 500 MG TABLET PO SCH (06:40)
[2018-11-21] MEDS: *HR* Enoxaparin 40 MG/0.4 ML SYRINGE SQ SCH (06:40)
[2018-11-21] MEDS: Insulin LISPRO 300 UNITS/3 ML VIAL SQ SCH ×4 (07:49→23:41)
[2018-11-21] MEDS: Magnesium Oxide 400 MG TABLET PO SCH (09:06)
[2018-11-21] MEDS: Cholecalciferol (D-3) 1,000 UNIT (25MCG) TABLET PO SCH (09:06)
[2018-11-21] MEDS: Zinc Sulfate 220 MG CAPSULE PO SCH (09:06)
[2018-11-21] MEDS: Cyanocobalamin (B-12) 1,000 MCG TABLET PO SCH (09:06)
[2018-11-21] MEDS: Lactobacillus 1 EACH CAP.SPRINK PO SCH ×2 (09:07→21:11)
[2018-11-21] MEDS: Fluconazole 100 MG TABLET PO SCH ×2 (09:07→21:11)
[2018-11-21] MEDS: cloNIDine HCl 0.1 MG TABLET PO SCH ×2 (09:07→21:11)
[2018-11-21] MEDS: Bumetanide 1 MG TABLET PO SCH ×2 (09:07→16:48)
[2018-11-21] MEDS: Acetaminophen 325 MG TABLET PO PRN ×3 (09:14→23:21)
[2018-11-21 11:15] LABS: Calcium 9.7 mg/dL (8.6-10.3); Potassium 4.1 mEq/L (3.5-5.1)
[2018-11-21 11:16] LABS: Basophils # 0.2 K/mcL (0.0-0.2); Basophils % 1.1 %; Eosinophils # 1.3 K/mcL (0.0-0.6); Eosinophils % 8.6 %; Hemoglobin 9.6 g/dL (11.5-15.4); Immature Granulocytes % 4.9 % (0-4); Lymphocytes # 3.4 K/mcL (0.6-4.6); Lymphocytes % 21.9 %; Mean Corpuscular Hemoglobin 28.2 pg (28.0-33.3); Mean Platelet Volume 8.4 fL (9.4-12.4); Monocytes # 1.6 K/mcL (0.0-1.3); Monocytes % 10.6 %; Neutrophils # 8.2 K/mcL (1.6-8.9); Nucleated Red Blood Cells 0.2 /100 WBC (0); Platelet Count 519 K/mcL (140-400); Red Blood Count 3.41 M/mcL (3.82-4.97); Red Cell Distribution Width 15.6 % (11.5-14.5); Segmented Neutrophils % 52.9 %; White Blood Count 15.5 K/mcL (4.3-11.1)
[2018-11-21] MEDS ORDERED: 0.9 % Sodium Chloride 250 ML ONE (11:51)
[2018-11-21] MEDS: Nystatin POWDER 30 GM BOTTLE TP SCH ×2 (14:03→23:42)
[2018-11-21] MEDS: Gentamicin Oint 15 GM TUBE TP SCH (14:03)
[2018-11-21] MEDS: Insulin DETEMIR 100 UNIT/ML X5UNITS SQ SCH (21:11)
[2018-11-21] MEDS: *HR* Glimepiride 2 MG TABLET PO SCH (21:11)
[2018-11-21] MEDS: Gabapentin 300 MG CAPSULE PO SCH (21:11)
[2018-11-22] MEDS: *HR* Enoxaparin 40 MG/0.4 ML SYRINGE SQ SCH (05:43)
[2018-11-22] MEDS: Ascorbic Acid 500 MG TABLET PO SCH (05:43)
[2018-11-22] MEDS: Gentamicin Oint 15 GM TUBE TP SCH (05:43)
[2018-11-22] MEDS: Acetaminophen 325 MG TABLET PO PRN (05:43)
[2018-11-22 06:24] LABS: Basophils # 0.1 K/mcL (0.0-0.2); Basophils % 1.2 %; Hematocrit 28.4 % (35.3-44.9); Hemoglobin 8.9 g/dL (11.5-15.4); Immature Granulocytes % 6.3 % (0-4); Lymphocytes # 2.7 K/mcL (0.6-4.6); Lymphocytes % 23.7 %; Mean Corpuscular HGB Conc 31.3 g/dL (31.6-35.5); Mean Corpuscular Hemoglobin 28.1 pg (28.0-33.3); Mean Corpuscular Volume 89.6 fL (83.0-100.0); Mean Platelet Volume 8.9 fL (9.4-12.4); Monocytes # 1.4 K/mcL (0.0-1.3); Monocytes % 12.3 %; Nucleated Red Blood Cells 0.3 /100 WBC (0); Platelet Count 495 K/mcL (140-400); Red Blood Count 3.17 M/mcL (3.82-4.97); Red Cell Distribution Width 15.5 % (11.5-14.5); Segmented Neutrophils % 45.5 %; White Blood Count 11.3 K/mcL (4.3-11.1)
[2018-11-22 06:35] LABS: Eosinophils # 1.2 K/mcL (0.0-0.6); Neutrophils # 5.1 K/mcL (1.6-8.9)
[2018-11-22] MEDS: *HR* OxyCODONE/APAP 5/325 TABLET PO PRN (06:52)
[2018-11-22 06:55] LABS: Calcium 9.5 mg/dL (8.6-10.3); Potassium 3.9 mEq/L (3.5-5.1)
[2018-11-22 06:58] LABS: Platelet Estimate Increased (Normal)
[2018-11-22] MEDS: Lactobacillus 1 EACH CAP.SPRINK PO SCH (09:15)
[2018-11-22] MEDS: Fluconazole 100 MG TABLET PO SCH ×2 (09:16→20:11)
[2018-11-22] MEDS: Zinc Sulfate 220 MG CAPSULE PO SCH (09:16)
[2018-11-22] MEDS: Bumetanide 1 MG TABLET PO SCH ×2 (09:16→17:10)
[2018-11-22] MEDS: Cyanocobalamin (B-12) 1,000 MCG TABLET PO SCH (09:16)
[2018-11-22] MEDS: cloNIDine HCl 0.1 MG TABLET PO SCH ×2 (09:16→20:11)
[2018-11-22] MEDS: Cholecalciferol (D-3) 1,000 UNIT (25MCG) TABLET PO SCH (09:17)
[2018-11-22] MEDS: Magnesium Oxide 400 MG TABLET PO SCH (09:17)
[2018-11-22] MEDS: Nystatin POWDER 30 GM BOTTLE TP SCH ×2 (09:17→20:14)
[2018-11-22] MEDS: Insulin LISPRO 300 UNITS/3 ML VIAL SQ SCH ×4 (09:22→20:11)
--- NOTE | 2018-11-22 15:19 | Internal Med Progress Note ---
Date of Encounter: 11/22/18 Time of Encounter: 15:10 - Assessment and plan (1) Degloving injury of left lower leg Current Visit: No Status: Acute Assessment and plan: November 06. Continue amoxicillin and present wound care. November 07. Continue clindamycin and present wound care. Follow-up with surgeon will be arranged since leukocytosis is gradually worsening. November 08. Clindamycin will be discontinued and IV vancomycin initiated per surgeon recommendation. Topical gentamicin with Santyl will be started. Debridement surgery will be arranged. November 13. Follow up with wound clinic personnel 11/19/2018. Continue IV vanc omycin and topical gentamicin and Santyl. November 17. WBC decreased to 12.7 with less left shift on differential on 11/16/2018. Continue present Rx. November 19. A mixup on arranging transportation caused her to miss today's scheduled wound care follow-up appointment. WBC further slightly decreased to 12.4 yesterday with no left shift. Recheck labs in a.m. Continue present wound care/dressing. Follow up with wound care reschedule for next week. November 19. Continue local wound care. Discontinue IV antibiotics with lactobacillus. Follow-up in wound clinic next week as scheduled. Qualifiers: Encounter type: initial encounter Qualified Code(s): S81.802A - Unspecified open wound, left lower leg, initial encounter (2) Anemia Current Visit: Yes Status: Acute Assessment and plan: November 06. Continue oral B12 and ferrous sulfate with ascorbic acid. November 11. Recheck labs in a.m. November 13. Hemoglobin stable at 8.5. November 15. Hemoglobin is decreased slightly to 8.0. Continue to monitor. November 19. Hemoglobin stable at 8.3 yesterday. Recheck in a.m. November 22. Hemoglobin 8.9 today. Qualifiers: Anemia type: unspecified type Qualified Code(s): D64.9 - Anemia, unspecified (3) CKD (chronic kidney disease) stage 3, GFR 30-59 ml/min Current Visit: Yes Status: Chronic Assessment and plan: November 06. Monitor renal indices. November 07. BUN and creatinine stable at 31 and 1.19 respectively with estimated GFR 45. Continue present Rx. November 11. Recheck labs in a.m. November 13. BUN and creatinine stable at 20 and 1.17 respectively with estimated GFR 45. November 15. BUN and creatinine have risen to 30 and 1.45 respectively with estimated GFR 35. Recheck in a.m. November 17. BUN and creatinine stable at 27 and 1.44 respectively. Continue to monitor. November 19. BUN and creatinine were 35 and 1.54 respectively yesterday. Recheck in a.m. November 22. BUN and creatinine were 44 and 1.32 respectively today. Continue to monitor periodically. (4) Hypomagnesemia Current Visit: Yes Status: Acute Assessment and plan: November 06. Continue supplemental magnesium oxide. November 07. Check magnesium level in a.m. November 08. Magnesium level improved to 1.7. Continue present Rx. November 15. Magnesium level has risen to 2.1. Continue to monitor. November 19. Magnesium level stable at 2.0 yesterday. Continue present Rx. (5) Diabetes Current Visit: No Status: Chronic Assessment and plan: November 06. Hemoglobin A1c was 13.2% on 11/01/2018. Continue Amaryl, Levemir/Lantus, and Accu-Cheks with SSI. November 08. Accu-Cheks acceptable. Continue present Rx. Qualifiers: Diabetes mellitus type: type 2 Diabetes mellitus longterm insulin use: with middle or intermediate school principal use Diabetes mellitus complication status: with hyperglycemia Qualified Code(s): E11.65 - Type 2 diabetes mellitus with hyperglycemia; Z79.4 - custodial (current) use of insulin (6) HTN (hypertension) Current Visit: No Status: Chronic Assessment and plan: November 06. Continue clonidine. November 07. Continue clonidine and Lopressor Qualifiers: Hypertension type: essential hypertension Qualified Code(s): I10 - Essential (primary) hypertension (7) TARA treated with BiPAP Current Visit: No Status: Chronic Assessment and plan: November 06. Continue BiPAP at bedtime. (8) Zinc deficiency Current Visit: Yes Status: Acute Assessment and plan: November 07. Zinc level low at 40.9. Start oral zinc sulfate. November 08. Continue zinc sulfate. (9) Candidiasis Current Visit: No Status: Acute Assessment and plan: November 08. The surgeon recommended use of nystatin powder instead of ketoconazole. November 09. Continue oral Diflucan and topical nystatin powder - Subjective Interval history: November 06. She has no new complaints. November 07. She has no new complaints. November 08. She has no new complaints. She saw Dr. Richardson today who feels additional surgery for debridement is needed. November 11. She has no new complaints. She was given Vistaril by Dr. Hillman over the weekend for itching. She states her pruritus has improved. November 13. She has no new complaints. She was seen by wound clinic staff at [facility] earlier today. She reports Dr. Bianchi did wound debridement with follow-up appointment scheduled for 11/19/2018. November 15. She has no new complaints November 17. She has no new complaints. November 19. She has no new complaints. November 22. She has no new complaints. She was seen by Dr. Richardson today who was pleased with her overall progress. Vancomycin will be discontinued. A follow- up wound clinic appointment is scheduled for next week. - Constitutional Vitals: Temp Pulse Resp BP Pulse Ox 98.3 F 81 17 149/69 95 11/22/18 07:23 11/22/18 07:23 11/22/18 07:23 11/22/18 07:23 11/22/18 07:23 Exam: She is resting comfortably in bed and appears in no acute distress. Her affect is bright and cheerful. She has elastic wrap on her left lower leg which I did not unwrap. The erythema above the margin of the wrap appears decreased in intensity. She has venous stasis erythema of the right lower leg. There is trace pedal edema of the leg but 1-2+ edema of the dorsum of the right foot. I reviewed her medications and lab results. Internal Medicine: Result - Labs CBC & Chem 7: 11/22/18 05:41 11/22/18 05:41 Labs: Short CBC 11/22/18 Range/Units 05:41 WBC 11.3 H (4.3-11.1) K/mcL Hgb 8.9 L (11.5-15.4) g/dL Hct 28.4 L (35.3-44.9) % Plt Count 495 H (140-400) K/mcL Neutrophils # 5.1 (1.6-8.9) K/mcL BMP 11/22/18 05:41 Sodium 134 L Potassium 3.9 Chloride 93 L Carbon Dioxide 32 H BUN 44 H Creatinine 1.32 H Glucose 193 H Calcium 9.5 Consult Discharge Plan - Plan Referrals: NONE,PCP [Primary Care Provider] - 1 week
[2018-11-22] MEDS ORDERED: Aminoglycoside Consult 1 EACH MC ONE (16:33)
[2018-11-22] MEDS: traMADol 50 MG TABLET PO PRN (17:10)
[2018-11-22] MEDS: Gabapentin 300 MG CAPSULE PO SCH (20:11)
[2018-11-22] MEDS: Insulin DETEMIR 100 UNIT/ML X5UNITS SQ SCH (20:11)
[2018-11-22] MEDS: *HR* Glimepiride 2 MG TABLET PO SCH (20:11)
[2018-11-23] MEDS: *HR* Enoxaparin 40 MG/0.4 ML SYRINGE SQ SCH (06:43)
[2018-11-23] MEDS: Ascorbic Acid 500 MG TABLET PO SCH (06:43)
[2018-11-23] MEDS: Cholecalciferol (D-3) 1,000 UNIT (25MCG) TABLET PO SCH (07:57)
[2018-11-23] MEDS: traMADol 50 MG TABLET PO PRN ×3 (07:57→20:43)
[2018-11-23] MEDS: Fluconazole 100 MG TABLET PO SCH ×2 (07:57→20:40)
[2018-11-23] MEDS: cloNIDine HCl 0.1 MG TABLET PO SCH ×2 (07:57→20:40)
[2018-11-23] MEDS: Bumetanide 1 MG TABLET PO SCH ×2 (07:58→18:32)
[2018-11-23] MEDS: Zinc Sulfate 220 MG CAPSULE PO SCH (07:59)
[2018-11-23] MEDS: Cyanocobalamin (B-12) 1,000 MCG TABLET PO SCH (07:59)
[2018-11-23] MEDS: Insulin LISPRO 300 UNITS/3 ML VIAL SQ SCH ×4 (08:10→20:44)
[2018-11-23] MEDS: Nystatin POWDER 30 GM BOTTLE TP SCH ×2 (11:02→20:45)
[2018-11-23] MEDS: Gentamicin Oint 15 GM TUBE TP SCH (11:02)
[2018-11-23] MEDS: Magnesium Oxide 400 MG TABLET PO SCH (11:02)
[2018-11-23] MEDS: hydrOXYzine pamoate 25 MG CAPSULE PO PRN (15:34)
[2018-11-23] MEDS: *HR* Glimepiride 2 MG TABLET PO SCH (20:40)
[2018-11-23] MEDS: Gabapentin 300 MG CAPSULE PO SCH (20:40)
[2018-11-23] MEDS: Insulin DETEMIR 100 UNIT/ML X5UNITS SQ SCH (20:44)
[2018-11-24] MEDS: Ascorbic Acid 500 MG TABLET PO SCH (06:58)
[2018-11-24] MEDS: *HR* Enoxaparin 40 MG/0.4 ML SYRINGE SQ SCH (06:58)
[2018-11-24] MEDS: Insulin LISPRO 300 UNITS/3 ML VIAL SQ SCH ×4 (07:46→21:15)
[2018-11-24] MEDS: Bumetanide 1 MG TABLET PO SCH ×2 (07:47→16:13)
[2018-11-24] MEDS: Cholecalciferol (D-3) 1,000 UNIT (25MCG) TABLET PO SCH (07:47)
[2018-11-24] MEDS: Fluconazole 100 MG TABLET PO SCH ×2 (07:47→21:16)
[2018-11-24] MEDS: Cyanocobalamin (B-12) 1,000 MCG TABLET PO SCH (07:47)
[2018-11-24] MEDS: cloNIDine HCl 0.1 MG TABLET PO SCH ×2 (07:48→21:16)
[2018-11-24] MEDS: Zinc Sulfate 220 MG CAPSULE PO SCH (07:48)
[2018-11-24] MEDS: Nystatin POWDER 30 GM BOTTLE TP SCH ×2 (07:49→21:15)
[2018-11-24] MEDS: Magnesium Oxide 400 MG TABLET PO SCH (07:49)
[2018-11-24] MEDS: Gentamicin Oint 15 GM TUBE TP SCH (07:49)
[2018-11-24] MEDS: traMADol 50 MG TABLET PO PRN ×2 (17:16→21:19)
[2018-11-24] MEDS: *HR* Glimepiride 2 MG TABLET PO SCH (21:16)
[2018-11-24] MEDS: Insulin DETEMIR 100 UNIT/ML X5UNITS SQ SCH (21:16)
[2018-11-24] MEDS: Gabapentin 300 MG CAPSULE PO SCH (21:16)
[2018-11-25] MEDS: *HR* Enoxaparin 40 MG/0.4 ML SYRINGE SQ SCH (06:27)
[2018-11-25] MEDS: Ascorbic Acid 500 MG TABLET PO SCH (06:27)
[2018-11-25] MEDS: Insulin LISPRO 300 UNITS/3 ML VIAL SQ SCH ×4 (08:52→21:09)
[2018-11-25] MEDS: Fluconazole 100 MG TABLET PO SCH ×2 (08:52→21:09)
[2018-11-25] MEDS: Cholecalciferol (D-3) 1,000 UNIT (25MCG) TABLET PO SCH (08:53)
[2018-11-25] MEDS: Magnesium Oxide 400 MG TABLET PO SCH (08:53)
[2018-11-25] MEDS: Bumetanide 1 MG TABLET PO SCH ×2 (08:53→17:08)
[2018-11-25] MEDS: cloNIDine HCl 0.1 MG TABLET PO SCH ×2 (08:53→21:09)
[2018-11-25] MEDS: traMADol 50 MG TABLET PO PRN ×2 (08:53→15:46)
[2018-11-25] MEDS: Zinc Sulfate 220 MG CAPSULE PO SCH (08:53)
[2018-11-25] MEDS: Cyanocobalamin (B-12) 1,000 MCG TABLET PO SCH (08:53)
[2018-11-25] MEDS: Nystatin POWDER 30 GM BOTTLE TP SCH ×2 (10:15→16:55)
[2018-11-25] MEDS: Mag Hydrox/Al Hydrox/Simeth 30 ML UDC PO PRN (15:46)
[2018-11-25] MEDS: Gentamicin Oint 15 GM TUBE TP SCH (16:54)
--- NOTE | 2018-11-25 17:40 | Internal Med Progress Note ---
Date of Encounter: 11/25/18 Time of Encounter: 17:30 - Assessment and plan (1) Degloving injury of left lower leg Current Visit: No Status: Acute Assessment and plan: November 06. Continue amoxicillin and present wound care. November 07. Continue clindamycin and present wound care. Follow-up with surgeon will be arranged since leukocytosis is gradually worsening. November 08. Clindamycin will be discontinued and IV vancomycin initiated per surgeon recommendation. Topical gentamicin with Santyl will be started. Debridement surgery will be arranged. November 13. Follow up with wound clinic personnel 11/19/2018. Continue IV vanc omycin and topical gentamicin and Santyl. November 17. WBC decreased to 12.7 with less left shift on differential on 11/16/2018. Continue present Rx. November 19. A mixup on arranging transportation caused her to miss today's scheduled wound care follow-up appointment. WBC further slightly decreased to 12.4 yesterday with no left shift. Recheck labs in a.m. Continue present wound care/dressing. Follow up with wound care reschedule for next week. November 22. Continue local wound care. Discontinue IV antibiotics with lactobacillus. Follow-up in wound clinic next week as scheduled. November 25. Follow-up in wound clinic tomorrow. Qualifiers: Encounter type: initial encounter Qualified Code(s): S81.802A - Unspecified open wound, left lower leg, initial encounter (2) Anemia Current Visit: Yes Status: Acute Assessment and plan: November 06. Continue oral B12 and ferrous sulfate with ascorbic acid. November 11. Recheck labs in a.m. November 13. Hemoglobin stable at 8.5. November 15. Hemoglobin is decreased slightly to 8.0. Continue to monitor. November 19. Hemoglobin stable at 8.3 yesterday. Recheck in a.m. November 22. Hemoglobin 8.9 today. Qualifiers: Anemia type: unspecified type Qualified Code(s): D64.9 - Anemia, unspecified (3) CKD (chronic kidney disease) stage 3, GFR 30-59 ml/min Current Visit: Yes Status: Chronic Assessment and plan: November 06. Monitor renal indices. November 07. BUN and creatinine stable at 31 and 1.19 respectively with estimated GFR 45. Continue present Rx. November 11. Recheck labs in a.m. November 13. BUN and creatinine stable at 20 and 1.17 respectively with estimated GFR 45. November 15. BUN and creatinine have risen to 30 and 1.45 respectively with estimated GFR 35. Recheck in a.m. November 17. BUN and creatinine stable at 27 and 1.44 respectively. Continue to monitor. November 19. BUN and creatinine were 35 and 1.54 respectively yesterday. Recheck in a.m. November 22. BUN and creatinine were 44 and 1.32 respectively today. Continue to monitor periodically. (4) Hypomagnesemia Current Visit: Yes Status: Acute Assessment and plan: November 06. Continue supplemental magnesium oxide. November 07. Check magnesium level in a.m. November 08. Magnesium level improved to 1.7. Continue present Rx. November 15. Magnesium level has risen to 2.1. Continue to monitor. November 19. Magnesium level stable at 2.0 yesterday. Continue present Rx. (5) Diabetes Current Visit: No Status: Chronic Assessment and plan: November 06. Hemoglobin A1c was 13.2% on 11/01/2018. Continue Amaryl, Levemir/Lantus, and Accu-Cheks with SSI. November 08. Accu-Cheks acceptable. Continue present Rx. Qualifiers: Diabetes mellitus type: type 2 Diabetes mellitus termination clerk insulin use: with termination clerk use Diabetes mellitus complication status: with hyperglycemia Qualified Code(s): E11.65 - Type 2 diabetes mellitus with hyperglycemia; Z79.4 - assisted (current) use of insulin (6) HTN (hypertension) Current Visit: No Status: Chronic Assessment and plan: November 06. Continue clonidine. November 07. Continue clonidine and Lopressor Qualifiers: Hypertension type: essential hypertension Qualified Code(s): I10 - Essential (primary) hypertension (7) TARA treated with BiPAP Current Visit: No Status: Chronic Assessment and plan: November 06. Continue BiPAP at bedtime. (8) Zinc deficiency Current Visit: Yes Status: Acute Assessment and plan: November 07. Zinc level low at 40.9. Start oral zinc sulfate. November 08. Continue zinc sulfate. (9) Candidiasis Current Visit: No Status: Acute Assessment and plan: November 08. The surgeon recommended use of nystatin powder instead of ketoconazole. November 09. Continue oral Diflucan and topical nystatin powder - Subjective Interval history: November 06. She has no new complaints. November 07. She has no new complaints. November 08. She has no new complaints. She saw Dr. Richardson today who feels additional surgery for debridement is needed. November 11. She has no new complaints. She was given Vistaril by Dr. Hillman over the weekend for itching. She states her pruritus has improved. November 13. She has no new complaints. She was seen by wound clinic staff at [facility] earlier today. She reports Dr. Bianchi did wound debridement with follow-up appointment scheduled for 11/19/2018. November 15. She has no new complaints November 17. She has no new complaints. November 19. She has no new complaints. November 22. She has no new complaints. She was seen by Dr. Richardson today who was pleased with her overall progress. Vancomycin will be discontinued. A follow- up wound clinic appointment is scheduled for next week. November 25. She has no new complaints and feels better. - Constitutional Vitals: Temp Pulse Resp BP Pulse Ox 98.1 F 72 20 133/63 97 11/25/18 07:23 11/25/18 07:23 11/25/18 07:23 11/25/18 07:23 11/25/18 07:23 Exam: She is resting comfortably in bed and appears in no acute distress. Her affect is bright and cheerful. Extremity edema has further lessened. Her right leg also shows decreased overall erythema. I reviewed her medications and lab results. Internal Medicine: Result - Labs CBC & Chem 7: 11/22/18 05:41 11/22/18 05:41 Consult Discharge Plan - Plan Referrals: NONE,PCP [Primary Care Provider] - 1 week
[2018-11-25] MEDS: Gabapentin 300 MG CAPSULE PO SCH (21:09)
[2018-11-25] MEDS: Insulin DETEMIR 100 UNIT/ML X5UNITS SQ SCH (21:09)
[2018-11-25] MEDS: *HR* Glimepiride 2 MG TABLET PO SCH (21:09)
[2018-11-26] MEDS: *HR* Enoxaparin 40 MG/0.4 ML SYRINGE SQ SCH (06:16)
[2018-11-26] MEDS: Ascorbic Acid 500 MG TABLET PO SCH (06:16)
[2018-11-26] MEDS: hydrOXYzine pamoate 25 MG CAPSULE PO PRN (08:12)
[2018-11-26] MEDS: Cyanocobalamin (B-12) 1,000 MCG TABLET PO SCH (08:12)
[2018-11-26] MEDS: cloNIDine HCl 0.1 MG TABLET PO SCH ×2 (08:12→21:04)
[2018-11-26] MEDS: Fluconazole 100 MG TABLET PO SCH ×2 (08:13→21:04)
[2018-11-26] MEDS: Cholecalciferol (D-3) 1,000 UNIT (25MCG) TABLET PO SCH (08:13)
[2018-11-26] MEDS: Bumetanide 1 MG TABLET PO SCH ×2 (08:13→18:03)
[2018-11-26] MEDS: Zinc Sulfate 220 MG CAPSULE PO SCH (08:13)
[2018-11-26] MEDS: Insulin LISPRO 300 UNITS/3 ML VIAL SQ SCH ×4 (08:13→21:04)
[2018-11-26] MEDS: Nystatin POWDER 30 GM BOTTLE TP SCH ×2 (08:17→21:05)
[2018-11-26] MEDS: Magnesium Oxide 400 MG TABLET PO SCH (08:17)
[2018-11-26] MEDS: Gentamicin Oint 15 GM TUBE TP SCH (08:17)
[2018-11-26] MEDS: *HR* OxyCODONE/APAP 5/325 TABLET PO PRN (13:56)
[2018-11-26] MEDS: Gabapentin 300 MG CAPSULE PO SCH (21:04)
[2018-11-26] MEDS: Insulin DETEMIR 100 UNIT/ML X5UNITS SQ SCH (21:04)
[2018-11-26] MEDS: *HR* Glimepiride 2 MG TABLET PO SCH (21:05)
[2018-11-27] MEDS: *HR* Enoxaparin 40 MG/0.4 ML SYRINGE SQ SCH (05:59)
[2018-11-27] MEDS: Ascorbic Acid 500 MG TABLET PO SCH (05:59)
[2018-11-27] MEDS: Insulin LISPRO 300 UNITS/3 ML VIAL SQ SCH ×4 (08:20→19:49)
[2018-11-27] MEDS: Cholecalciferol (D-3) 1,000 UNIT (25MCG) TABLET PO SCH (08:21)
[2018-11-27] MEDS: Fluconazole 100 MG TABLET PO SCH ×2 (08:21→19:49)
[2018-11-27] MEDS: hydrOXYzine pamoate 25 MG CAPSULE PO PRN (08:21)
[2018-11-27] MEDS: cloNIDine HCl 0.1 MG TABLET PO SCH ×2 (08:21→19:48)
[2018-11-27] MEDS: Bumetanide 1 MG TABLET PO SCH ×2 (08:21→16:41)
[2018-11-27] MEDS: Zinc Sulfate 220 MG CAPSULE PO SCH (08:21)
[2018-11-27] MEDS: Cyanocobalamin (B-12) 1,000 MCG TABLET PO SCH (08:21)
[2018-11-27] MEDS: Magnesium Oxide 400 MG TABLET PO SCH (08:22)
[2018-11-27] MEDS: traMADol 50 MG TABLET PO PRN ×3 (09:20→19:48)
[2018-11-27] MEDS: Nystatin POWDER 30 GM BOTTLE TP SCH ×2 (11:17→19:59)
[2018-11-27] MEDS: *HR* Glimepiride 2 MG TABLET PO SCH (19:48)
[2018-11-27] MEDS: Gabapentin 300 MG CAPSULE PO SCH (19:49)
[2018-11-27] MEDS: Insulin DETEMIR 100 UNIT/ML X5UNITS SQ SCH (19:49)
[2018-11-28] MEDS: Gentamicin Oint 15 GM TUBE TP SCH (02:57)
[2018-11-28] MEDS: Ascorbic Acid 500 MG TABLET PO SCH (06:31)
[2018-11-28] MEDS: traMADol 50 MG TABLET PO PRN ×2 (06:31→18:52)
[2018-11-28] MEDS: *HR* Enoxaparin 40 MG/0.4 ML SYRINGE SQ SCH (06:31)
[2018-11-28] MEDS: Cholecalciferol (D-3) 1,000 UNIT (25MCG) TABLET PO SCH (08:48)
[2018-11-28] MEDS: cloNIDine HCl 0.1 MG TABLET PO SCH ×2 (08:49→20:45)
[2018-11-28] MEDS: Cyanocobalamin (B-12) 1,000 MCG TABLET PO SCH (08:49)
[2018-11-28] MEDS: Fluconazole 100 MG TABLET PO SCH ×2 (08:49→20:46)
[2018-11-28] MEDS: Bumetanide 1 MG TABLET PO SCH ×2 (08:49→16:20)
[2018-11-28] MEDS: Magnesium Oxide 400 MG TABLET PO SCH (08:50)
[2018-11-28] MEDS: Zinc Sulfate 220 MG CAPSULE PO SCH (08:50)
[2018-11-28] MEDS: Insulin LISPRO 300 UNITS/3 ML VIAL SQ SCH ×4 (08:51→20:46)
[2018-11-28] MEDS: Nystatin POWDER 30 GM BOTTLE TP SCH ×2 (08:55→20:45)
--- NOTE | 2018-11-28 11:54 | Internal Med Progress Note ---
Date of Encounter: 11/28/18 Time of Encounter: 11:40 - Assessment and plan (1) Degloving injury of left lower leg Current Visit: No Status: Acute Assessment and plan: November 06. Continue amoxicillin and present wound care. November 07. Continue clindamycin and present wound care. Follow-up with surgeon will be arranged since leukocytosis is gradually worsening. November 08. Clindamycin will be discontinued and IV vancomycin initiated per surgeon recommendation. Topical gentamicin with Santyl will be started. Debridement surgery will be arranged. November 13. Follow up with wound clinic personnel 11/19/2018. Continue IV vanc omycin and topical gentamicin and Santyl. November 17. WBC decreased to 12.7 with less left shift on differential on 11/16/2018. Continue present Rx. November 19. A mixup on arranging transportation caused her to miss today's scheduled wound care follow-up appointment. WBC further slightly decreased to 12.4 yesterday with no left shift. Recheck labs in a.m. Continue present wound care/dressing. Follow up with wound care reschedule for next week. November 22. Continue local wound care. Discontinue IV antibiotics with lactobacillus. Follow-up in wound clinic next week as scheduled. November 25. Follow-up in wound clinic tomorrow. Qualifiers: Encounter type: initial encounter Qualified Code(s): S81.802A - Unspecified open wound, left lower leg, initial encounter (2) Anemia Current Visit: Yes Status: Acute Assessment and plan: November 06. Continue oral B12 and ferrous sulfate with ascorbic acid. November 11. Recheck labs in a.m. November 13. Hemoglobin stable at 8.5. November 15. Hemoglobin is decreased slightly to 8.0. Continue to monitor. November 19. Hemoglobin stable at 8.3 yesterday. Recheck in a.m. November 22. Hemoglobin 8.9 today. November 28. Recheck labs in a.m. Qualifiers: Anemia type: unspecified type Qualified Code(s): D64.9 - Anemia, unspecified (3) CKD (chronic kidney disease) stage 3, GFR 30-59 ml/min Current Visit: Yes Status: Chronic Assessment and plan: November 06. Monitor renal indices. November 07. BUN and creatinine stable at 31 and 1.19 respectively with estimated GFR 45. Continue present Rx. November 11. Recheck labs in a.m. November 13. BUN and creatinine stable at 20 and 1.17 respectively with estimated GFR 45. November 15. BUN and creatinine have risen to 30 and 1.45 respectively with estimated GFR 35. Recheck in a.m. November 17. BUN and creatinine stable at 27 and 1.44 respectively. Continue to monitor. November 19. BUN and creatinine were 35 and 1.54 respectively yesterday. Recheck in a.m. November 22. BUN and creatinine were 44 and 1.32 respectively today. Continue to monitor periodically. November 28. Recheck labs in a.m. (4) Hypomagnesemia Current Visit: Yes Status: Acute Assessment and plan: November 06. Continue supplemental magnesium oxide. November 07. Check magnesium level in a.m. November 08. Magnesium level improved to 1.7. Continue present Rx. November 15. Magnesium level has risen to 2.1. Continue to monitor. November 19. Magnesium level stable at 2.0 yesterday. Continue present Rx. November 28. Recheck labs in a.m. (5) Diabetes Current Visit: No Status: Chronic Assessment and plan: November 06. Hemoglobin A1c was 13.2% on 11/01/2018. Continue Amaryl, Levemir/Lantus, and Accu-Cheks with SSI. November 08. Accu-Cheks acceptable. Continue present Rx. Qualifiers: Diabetes mellitus type: type 2 Diabetes mellitus terminal computer operator insulin use: with usp use Diabetes mellitus complication status: with hyperglycemia Qualified Code(s): E11.65 - Type 2 diabetes mellitus with hyperglycemia; Z79.4 - [facility] (current) use of insulin (6) HTN (hypertension) Current Visit: No Status: Chronic Assessment and plan: November 06. Continue clonidine. November 07. Continue clonidine and Lopressor Qualifiers: Hypertension type: essential hypertension Qualified Code(s): I10 - Essential (primary) hypertension (7) TARA treated with BiPAP Current Visit: No Status: Chronic Assessment and plan: November 06. Continue BiPAP at bedtime. (8) Zinc deficiency Current Visit: Yes Status: Acute Assessment and plan: November 07. Zinc level low at 40.9. Start oral zinc sulfate. November 08. Continue zinc sulfate. (9) Candidiasis Current Visit: No Status: Acute Assessment and plan: November 08. The surgeon recommended use of nystatin powder instead of ketoconazole. Ashley 27. Continue oral Diflucan and topical nystatin powder - Subjective Interval history: November 06. She has no new complaints. November 07. She has no new complaints. November 08. She has no new complaints. She saw Dr. Richardson today who feels additional surgery for debridement is needed. November 11. She has no new complaints. She was given Vistaril by Dr. Hillman over the weekend for itching. She states her pruritus has improved. November 13. She has no new complaints. She was seen by wound clinic staff at [facility] earlier today. She reports Dr. Bianchi did wound debridement with follow-up appointment scheduled for 11/19/2018. November 15. She has no new complaints November 17. She has no new complaints. November 19. She has no new complaints. November 22. She has no new complaints. She was seen by Dr. Richardson today who was pleased with her overall progress. Vancomycin will be discontinued. A follow- up wound clinic appointment is scheduled for next week. November 25. She has no new complaints and feels better. November 28. She has no new complaints and feels better. She reports she had good report from wound clinic visit 2 days ago. - Constitutional Vitals: Temp Pulse Resp BP Pulse Ox 98.1 F 83 19 144/69 100 11/28/18 07:29 11/28/18 08:47 11/28/18 07:29 11/28/18 08:47 11/28/18 08:47 Exam: She is resting comfortably in bed and appears in no acute distress. Her affect is overall cheerful. Edema and erythema remain improved on the right leg. The left leg has new wrap in place which I did not undo. There is decreased skin yeast infection of her back and gluteal area. I reviewed her medications and lab results. Internal Medicine: Result - Labs CBC & Chem 7: 11/22/18 05:41 11/22/18 05:41 Consult Discharge Plan - Plan Referrals: NONE,PCP [Primary Care Provider] - 1 week
[2018-11-28] MEDS: *HR* Glimepiride 2 MG TABLET PO SCH (20:45)
[2018-11-28] MEDS: Insulin DETEMIR 100 UNIT/ML X5UNITS SQ SCH (20:46)
[2018-11-28] MEDS: hydrOXYzine pamoate 25 MG CAPSULE PO PRN (20:46)
[2018-11-28] MEDS: Gabapentin 300 MG CAPSULE PO SCH (20:46)
[2018-11-29 06:25] LABS: Basophils # 0.2 K/mcL (0.0-0.2); Basophils % 1.9 %; Eosinophils % 7.9 %; Hematocrit 29.4 % (35.3-44.9); Hemoglobin 9.2 g/dL (11.5-15.4); Immature Granulocytes % 4.1 % (0-4); Lymphocytes # 2.7 K/mcL (0.6-4.6); Lymphocytes % 21.5 %; Mean Corpuscular HGB Conc 31.3 g/dL (31.6-35.5); Mean Corpuscular Hemoglobin 27.9 pg (28.0-33.3); Mean Corpuscular Volume 89.1 fL (83.0-100.0); Mean Platelet Volume 8.6 fL (9.4-12.4); Monocytes # 1.3 K/mcL (0.0-1.3); Monocytes % 10.1 %; Neutrophils # 6.8 K/mcL (1.6-8.9); Platelet Count 537 K/mcL (140-400); Red Cell Distribution Width 15.5 % (11.5-14.5); Segmented Neutrophils % 54.5 %; White Blood Count 12.4 K/mcL (4.3-11.1)
[2018-11-29] MEDS: *HR* Enoxaparin 40 MG/0.4 ML SYRINGE SQ SCH (06:26)
[2018-11-29] MEDS: Ascorbic Acid 500 MG TABLET PO SCH (06:26)
[2018-11-29] MEDS: traMADol 50 MG TABLET PO PRN ×3 (06:28→20:33)
[2018-11-29 06:43] LABS: Calcium 10.1 mg/dL (8.6-10.3); Magnesium 1.9 mg/dL (1.6-2.6); Potassium 4.2 mEq/L (3.5-5.1)
[2018-11-29] MEDS: Insulin LISPRO 300 UNITS/3 ML VIAL SQ SCH ×4 (07:52→20:33)
[2018-11-29] MEDS: Bumetanide 1 MG TABLET PO SCH ×2 (08:08→16:22)
[2018-11-29] MEDS: cloNIDine HCl 0.1 MG TABLET PO SCH ×2 (08:08→20:33)
[2018-11-29] MEDS: Zinc Sulfate 220 MG CAPSULE PO SCH (08:08)
[2018-11-29] MEDS: Fluconazole 100 MG TABLET PO SCH ×2 (08:08→20:33)
[2018-11-29] MEDS: Magnesium Oxide 400 MG TABLET PO SCH (08:08)
[2018-11-29] MEDS: Cyanocobalamin (B-12) 1,000 MCG TABLET PO SCH (08:09)
[2018-11-29] MEDS: Nystatin POWDER 30 GM BOTTLE TP SCH ×2 (08:09→20:34)
[2018-11-29] MEDS: Cholecalciferol (D-3) 1,000 UNIT (25MCG) TABLET PO SCH (08:09)
[2018-11-29] MEDS: Gabapentin 300 MG CAPSULE PO SCH (20:33)
[2018-11-29] MEDS: Insulin DETEMIR 100 UNIT/ML X5UNITS SQ SCH (20:33)
[2018-11-29] MEDS: *HR* Glimepiride 2 MG TABLET PO SCH (20:33)
[2018-11-30] MEDS: Ascorbic Acid 500 MG TABLET PO SCH (06:59)
[2018-11-30] MEDS: *HR* Enoxaparin 40 MG/0.4 ML SYRINGE SQ SCH (06:59)
[2018-11-30] MEDS: Insulin LISPRO 300 UNITS/3 ML VIAL SQ SCH ×4 (07:29→21:03)
[2018-11-30] MEDS: Bumetanide 1 MG TABLET PO SCH ×2 (07:47→17:15)
[2018-11-30] MEDS: Zinc Sulfate 220 MG CAPSULE PO SCH (07:47)
[2018-11-30] MEDS: Fluconazole 100 MG TABLET PO SCH ×2 (07:47→21:02)
[2018-11-30] MEDS: Cyanocobalamin (B-12) 1,000 MCG TABLET PO SCH (07:48)
[2018-11-30] MEDS: Magnesium Oxide 400 MG TABLET PO SCH (07:48)
[2018-11-30] MEDS: Cholecalciferol (D-3) 1,000 UNIT (25MCG) TABLET PO SCH (07:48)
[2018-11-30] MEDS: cloNIDine HCl 0.1 MG TABLET PO SCH ×2 (07:48→21:02)
[2018-11-30] MEDS: Nystatin POWDER 30 GM BOTTLE TP SCH ×2 (07:49→21:04)
[2018-11-30] MEDS: traMADol 50 MG TABLET PO PRN ×2 (10:43→14:56)
[2018-11-30] MEDS: hydrOXYzine pamoate 25 MG CAPSULE PO PRN (10:43)
--- NOTE | 2018-11-30 15:39 | Internal Med Progress Note ---
Date of Encounter: 11/30/18 Time of Encounter: 14:35 - Assessment and plan (1) Degloving injury of left lower leg Current Visit: No Status: Acute Assessment and plan: November 06. Continue amoxicillin and present wound care. November 07. Continue clindamycin and present wound care. Follow-up with surgeon will be arranged since leukocytosis is gradually worsening. November 08. Clindamycin will be discontinued and IV vancomycin initiated per surgeon recommendation. Topical gentamicin with Santyl will be started. Debridement surgery will be arranged. November 13. Follow up with wound clinic personnel 11/19/2018. Continue IV vanc omycin and topical gentamicin and Santyl. November 17. WBC decreased to 12.7 with less left shift on differential on 11/16/2018. Continue present Rx. November 19. A mixup on arranging transportation caused her to miss today's scheduled wound care follow-up appointment. WBC further slightly decreased to 12.4 yesterday with no left shift. Recheck labs in a.m. Continue present wound care/dressing. Follow up with wound care reschedule for next week. November 22. Continue local wound care. Discontinue IV antibiotics with lactobacillus. Follow-up in wound clinic next week as scheduled. November 25. Follow-up in wound clinic tomorrow. November 30. Staff nurse contacted surgeon on-call and described findings of the wound bed. She was instructed to continue orders as written and to follow up in wound clinic on 12/03/2018. Qualifiers: Encounter type: initial encounter Qualified Code(s): S81.802A - Unspecified open wound, left lower leg, initial encounter (2) Anemia Current Visit: Yes Status: Acute Assessment and plan: November 06. Continue oral B12 and ferrous sulfate with ascorbic acid. November 11. Recheck labs in a.m. November 13. Hemoglobin stable at 8.5. November 15. Hemoglobin is decreased slightly to 8.0. Continue to monitor. November 19. Hemoglobin stable at 8.3 yesterday. Recheck in a.m. November 22. Hemoglobin 8.9 today. November 28. Recheck labs in a.m. November 30. Hemoglobin stable at 9.2. Continue to monitor periodically. Qualifiers: Anemia type: unspecified type Qualified Code(s): D64.9 - Anemia, unspecified (3) CKD (chronic kidney disease) stage 3, GFR 30-59 ml/min Current Visit: Yes Status: Chronic Assessment and plan: November 06. Monitor renal indices. November 07. BUN and creatinine stable at 31 and 1.19 respectively with estimated GFR 45. Continue present Rx. November 11. Recheck labs in a.m. November 13. BUN and creatinine stable at 20 and 1.17 respectively with estimated GFR 45. November 15. BUN and creatinine have risen to 30 and 1.45 respectively with e stimated GFR 35. Recheck in a.m. November 17. BUN and creatinine stable at 27 and 1.44 respectively. Continue to monitor. November 19. BUN and creatinine were 35 and 1.54 respectively yesterday. Recheck in a.m. November 22. BUN and creatinine were 44 and 1.32 respectively today. Continue to monitor periodically. November 28. Recheck labs in a.m. November 30. Creatinine stable at 1.42. Continue to monitor periodically. (4) Hypomagnesemia Current Visit: Yes Status: Acute Assessment and plan: November 06. Continue supplemental magnesium oxide. November 07. Check magnesium level in a.m. November 08. Magnesium level improved to 1.7. Continue present Rx. November 15. Magnesium level has risen to 2.1. Continue to monitor. November 19. Magnesium level stable at 2.0 yesterday. Continue present Rx. November 28. Recheck labs in a.m. November 30. Magnesium stable at 1.9. (5) Diabetes Current Visit: No Status: Chronic Assessment and plan: November 06. Hemoglobin A1c was 13.2% on 11/01/2018. Continue Amaryl, Leve nnamdi/Lantus, and Accu-Cheks with SSI. November 08. Accu-Cheks acceptable. Continue present Rx. Qualifiers: Diabetes mellitus type: type 2 Diabetes mellitus remote computer terminal operator insulin use: with remote computer terminal operator use Diabetes mellitus complication status: with hyperglycemia Qualified Code(s): E11.65 - Type 2 diabetes mellitus with hyperglycemia; Z79.4 - [facility] (current) use of insulin (6) HTN (hypertension) Current Visit: No Status: Chronic Assessment and plan: November 06. Continue clonidine. November 07. Continue clonidine and Lopressor Qualifiers: Hypertension type: essential hypertension Qualified Code(s): I10 - Essential (primary) hypertension (7) TARA treated with BiPAP Current Visit: No Status: Chronic Assessment and plan: November 06. Continue BiPAP at bedtime. (8) Zinc deficiency Current Visit: Yes Status: Acute Assessment and plan: November 07. Zinc level low at 40.9. Start oral zinc sulfate. November 08. Continue zinc sulfate. (9) Candidiasis Current Visit: No Status: Acute Assessment and plan: November 08. The surgeon recommended use of nystatin powder instead of ketoconazole. November 09. Continue oral Diflucan and topical nystatin powder - Subjective Interval history: November 06. She has no new complaints. November 07. She has no new complaints. November 08. She has no new complaints. She saw Dr. Richardson today who feels additional surgery for debridement is needed. November 11. She has no new complaints. She was given Vistaril by Dr. Hillman over the weekend for itching. She states her pruritus has improved. November 13. She has no new complaints. She was seen by wound clinic staff at [facility] earlier today. She reports Dr. Bianchi did wound debridement with follow-up appointment scheduled for 11/19/2018. November 15. She has no new complaints November 17. She has no new complaints. November 19. She has no new complaints. November 22. She has no new complaints. She was seen by Dr. Richardson today who was pleased with her overall progress. Vancomycin will be discontinued. A follow- up wound clinic appointment is scheduled for next week. November 25. She has no new complaints and feels better. November 28. She has no new complaints and feels better. She reports she had good report from wound clinic visit 2 days ago. November 30. She has no new complaints. - Constitutional Vitals: Temp Pulse Resp BP Pulse Ox 98.4 F 75 20 125/73 96 11/30/18 07:00 11/30/18 07:00 11/30/18 07:00 11/30/18 07:00 11/30/18 07:00 Exam: She is resting comfortably in bed and appears in no acute distress. There is no residual pitting edema of her lower legs and dorsum of the feet. ABD pads were removed from right leg wound showing purulent exudative drainage in the wound bed. I reviewed her medications and lab results. Internal Medicine: Result - Labs CBC & Chem 7: 11/29/18 06:14 11/29/18 06:14 Consult Discharge Plan - Plan Referrals: NONE,PCP [Primary Care Provider] - 1 week
[2018-11-30] MEDS: Mag Hydrox/Al Hydrox/Simeth 30 ML UDC PO PRN (17:20)
[2018-11-30] MEDS: ALPRAZolam 0.5 MG TABLET PO PRN (18:39)
[2018-11-30] MEDS: Gabapentin 300 MG CAPSULE PO SCH (21:02)
[2018-11-30] MEDS: Insulin DETEMIR 100 UNIT/ML X5UNITS SQ SCH (21:02)
[2018-11-30] MEDS: *HR* Glimepiride 2 MG TABLET PO SCH (21:02)
[2018-12-01] MEDS: *HR* Enoxaparin 40 MG/0.4 ML SYRINGE SQ SCH (05:52)
[2018-12-01] MEDS: Ascorbic Acid 500 MG TABLET PO SCH (05:52)
[2018-12-01] MEDS: Zinc Sulfate 220 MG CAPSULE PO SCH (07:52)
[2018-12-01] MEDS: Magnesium Oxide 400 MG TABLET PO SCH (07:53)
[2018-12-01] MEDS: Bumetanide 1 MG TABLET PO SCH ×2 (07:53→16:14)
[2018-12-01] MEDS: Cholecalciferol (D-3) 1,000 UNIT (25MCG) TABLET PO SCH (07:53)
[2018-12-01] MEDS: Fluconazole 100 MG TABLET PO SCH ×2 (07:53→21:27)
[2018-12-01] MEDS: Cyanocobalamin (B-12) 1,000 MCG TABLET PO SCH (07:53)
[2018-12-01] MEDS: Insulin LISPRO 300 UNITS/3 ML VIAL SQ SCH ×4 (07:54→21:23)
[2018-12-01] MEDS: cloNIDine HCl 0.1 MG TABLET PO SCH ×2 (07:54→21:26)
[2018-12-01] MEDS: traMADol 50 MG TABLET PO PRN (08:21)
[2018-12-01] MEDS: Nystatin POWDER 30 GM BOTTLE TP SCH ×2 (08:25→21:48)
[2018-12-01 19:10] LABS: Bilirubin,Urine Negative (Negative); Blood,Urine Moderate (Negative); Clarity,Urine Cloudy (Clear); Glucose,Urine (UA) Normal (Normal); Ketones,Urine Negative (Negative); Leukocyte Esterase,Urine Large (Negative); Nitrite,Urine Negative (Negative); Protein,Urine 30 mg/dL (Neg-Trace); Specific Gravity,Urine 1.015 (1.010-1.025); Urobilinogen,Urine Normal (Normal)
[2018-12-01 19:13] LABS: Color,Urine Light Yellow (Yellow)
[2018-12-01 19:19] LABS: Bacteria,Urine Moderate per hpf (None-Few); Mucus,Urine Few (Few); Squamous Epithelial Cell,Urine Few per lpf (None-Few); WBC,Urine TNTC per hpf (0-3)
[2018-12-01] MEDS: *HR* Glimepiride 2 MG TABLET PO SCH (21:24)
[2018-12-01] MEDS: Insulin DETEMIR 100 UNIT/ML X5UNITS SQ SCH (21:26)
[2018-12-01] MEDS: Gabapentin 300 MG CAPSULE PO SCH (21:26)
[2018-12-01] MEDS: Lactobacillus 1 EACH CAP.SPRINK PO SCH (21:37)
[2018-12-02] MEDS: Ascorbic Acid 500 MG TABLET PO SCH (03:51)
[2018-12-02] MEDS: *HR* Enoxaparin 40 MG/0.4 ML SYRINGE SQ SCH (03:52)
[2018-12-02] MEDS: Insulin LISPRO 300 UNITS/3 ML VIAL SQ SCH ×4 (07:59→21:02)
[2018-12-02] MEDS: Lactobacillus 1 EACH CAP.SPRINK PO SCH ×2 (08:00→21:01)
[2018-12-02] MEDS: Fluconazole 100 MG TABLET PO SCH ×2 (08:01→21:01)
[2018-12-02] MEDS: Cholecalciferol (D-3) 1,000 UNIT (25MCG) TABLET PO SCH (08:01)
[2018-12-02] MEDS: Nitrofurantoin (BID) 100 MG CAPSULE PO SCH ×2 (08:01→16:20)
[2018-12-02] MEDS: Cyanocobalamin (B-12) 1,000 MCG TABLET PO SCH (08:01)
[2018-12-02] MEDS: Bumetanide 1 MG TABLET PO SCH ×2 (08:01→16:20)
[2018-12-02] MEDS: Zinc Sulfate 220 MG CAPSULE PO SCH (08:01)
[2018-12-02] MEDS: cloNIDine HCl 0.1 MG TABLET PO SCH ×2 (08:02→21:03)
[2018-12-02] MEDS: Magnesium Oxide 400 MG TABLET PO SCH (08:03)
[2018-12-02] MEDS: Nystatin POWDER 30 GM BOTTLE TP SCH ×2 (08:04→21:03)
[2018-12-02] MEDS: hydrOXYzine pamoate 25 MG CAPSULE PO PRN ×2 (11:32→21:02)
[2018-12-02] MEDS: traMADol 50 MG TABLET PO PRN ×2 (11:32→21:06)
--- NOTE | 2018-12-02 15:50 | Internal Med Progress Note ---
Date of Encounter: 12/02/18 Time of Encounter: 15:43 - Assessment and plan (1) Degloving injury of left lower leg Current Visit: No Status: Acute Assessment and plan: November 06. Continue amoxicillin and present wound care. November 07. Continue clindamycin and present wound care. Follow-up with surgeon will be arranged since leukocytosis is gradually worsening. November 08. Clindamycin will be discontinued and IV vancomycin initiated per surgeon recommendation. Topical gentamicin with Santyl will be started. Debridement surgery will be arranged. November 13. Follow up with wound clinic personnel 11/19/2018. Continue IV vanc omycin and topical gentamicin and Santyl. November 17. WBC decreased to 12.7 with less left shift on differential on 11/16/2018. Continue present Rx. November 19. A mixup on arranging transportation caused her to miss today's scheduled wound care follow-up appointment. WBC further slightly decreased to 12.4 yesterday with no left shift. Recheck labs in a.m. Continue present wound care/dressing. Follow up with wound care reschedule for next week. November 22. Continue local wound care. Discontinue IV antibiotics with lactobacillus. Follow-up in wound clinic next week as scheduled. November 25. Follow-up in wound clinic tomorrow. November 30. Staff nurse contacted surgeon on-call and described findings of the wound bed. She was instructed to continue orders as written and to follow up in wound clinic on 12/03/2018. December 02. Follow up with wound clinic staff tomorrow as scheduled. Qualifiers: Encounter type: initial encounter Qualified Code(s): S81.802A - Unspecified open wound, left lower leg, initial encounter (2) Anemia Current Visit: Yes Status: Acute Assessment and plan: November 06. Continue oral B12 and ferrous sulfate with ascorbic acid. November 11. Recheck labs in a.m. November 13. Hemoglobin stable at 8.5. November 15. Hemoglobin is decreased slightly to 8.0. Continue to monitor. November 19. Hemoglobin stable at 8.3 yesterday. Recheck in a.m. November 22. Hemoglobin 8.9 today. November 28. Recheck labs in a.m. November 30. Hemoglobin stable at 9.2. Continue to monitor periodically. December 02. Recheck labs in a.m. Qualifiers: Anemia type: unspecified type Qualified Code(s): D64.9 - Anemia, unspecified (3) CKD (chronic kidney disease) stage 3, GFR 30-59 ml/min Current Visit: Yes Status: Chronic Assessment and plan: November 06. Monitor renal indices. November 07. BUN and creatinine stable at 31 and 1.19 respectively with estimated GFR 45. Continue present Rx. November 11. Recheck labs in a.m. November 13. BUN and creatinine stable at 20 and 1.17 respectively with estimated GFR 45. November 15. BUN and creatinine have risen to 30 and 1.45 respectively with estimated GFR 35. Recheck in a.m. November 17. BUN and creatinine stable at 27 and 1.44 respectively. Continue to monitor. November 19. BUN and creatinine were 35 and 1.54 respectively yesterday. Recheck in a.m. November 22. BUN and creatinine were 44 and 1.32 respectively today. Continue to monitor periodically. November 28. Recheck labs in a.m. November 30. Creatinine stable at 1.42. Continue to monitor periodically. December 02. Recheck labs in a.m. (4) Hypomagnesemia Current Visit: Yes Status: Acute Assessment and plan: November 06. Continue supplemental magnesium oxide. November 07. Check magnesium level in a.m. November 08. Magnesium level improved to 1.7. Continue present Rx. November 15. Magnesium level has risen to 2.1. Continue to monitor. November 19. Magnesium level stable at 2.0 yesterday. Continue present Rx. November 28. Recheck labs in a.m. November 30. Magnesium stable at 1.9. December 02. Recheck labs in a.m. (5) Diabetes Current Visit: No Status: Chronic Assessment and plan: November 06. Hemoglobin A1c was 13.2% on 11/01/2018. Continue Amaryl, Levemir/Lantus, and Accu-Cheks with SSI. November 08. Accu-Cheks acceptable. Continue present Rx. Qualifiers: Diabetes mellitus type: type 2 Diabetes mellitus penitentiary insulin use: with penitentiary use Diabetes mellitus complication status: with hyperglycemia Qualified Code(s): E11.65 - Type 2 diabetes mellitus with hyperglycemia; Z79.4 - terminal carman (current) use of insulin (6) HTN (hypertension) Current Visit: No Status: Chronic Assessment and plan: November 06. Continue clonidine. November 07. Continue clonidine and Lopressor Qualifiers: Hypertension type: essential hypertension Qualified Code(s): I10 - Essential (primary) hypertension (7) TARA treated with BiPAP Current Visit: No Status: Chronic Assessment and plan: November 06. Continue BiPAP at bedtime. (8) Zinc deficiency Current Visit: Yes Status: Acute Assessment and plan: November 07. Zinc level low at 40.9. Start oral zinc sulfate. November 08. Continue zinc sulfate. (9) Candidiasis Current Visit: No Status: Acute Assessment and plan: November 08. The surgeon recommended use of nystatin powder instead of ketoconazole. November 09. Continue oral Diflucan and topical nystatin powder - Subjective Interval history: November 06. She has no new complaints. November 07. She has no new complaints. November 08. She has no new complaints. She saw Dr. Richardson today who feels additional surgery for debridement is needed. November 11. She has no new complaints. She was given Vistaril by Dr. Hillman over the weekend for itching. She states her pruritus has improved. November 13. She has no new complaints. She was seen by wound clinic staff at [facility] earlier today. She reports Dr. Bianchi did wound debridement with follow-up appointment scheduled for 11/19/2018. November 15. She has no new complaints November 17. She has no new complaints. November 19. She has no new complaints. November 22. She has no new complaints. She was seen by Dr. Richardson today who was pleased with her overall progress. Vancomycin will be discontinued. A follow- up wound clinic appointment is scheduled for next week. November 25. She has no new complaints and feels better. November 28. She has no new complaints and feels better. She reports she had good report from wound clinic visit 2 days ago. November 30. She has no new complaints. December 02. She has no new complaints. - Constitutional Vitals: Temp Pulse Resp BP Pulse Ox 98.2 F 69 20 120/71 97 12/02/18 07:56 12/02/18 07:56 12/02/18 06:43 12/02/18 07:56 12/02/18 07:56 Exam: She is resting comfortably in bed and appears in no acute distress. There is no pitting edema of the dorsum of feet. There is no dependent edema of her arms. Her affect is bright and cheerful. I reviewed her medications and lab results. Internal Medicine: Result - Labs CBC & Chem 7: 11/29/18 06:14 11/29/18 06:14 Labs: Urine 12/01/18 Range/Units 19:05 Urine Color Light Yellow (Yellow) Urine Clarity Cloudy A (Clear) Urine pH 7.0 (5.0-8.0) pH Units Ur Specific Staley 1.015 (1.010-1.025) Urine Protein 30 H (Neg-Trace) mg/dL Urine Glucose (UA) Normal (Normal) mg/dL Consult Discharge Plan - Plan Referrals: NONE,PCP [Primary Care Provider] - 1 week
[2018-12-02] MEDS: *HR* Glimepiride 2 MG TABLET PO SCH (21:00)
[2018-12-02] MEDS: Gabapentin 300 MG CAPSULE PO SCH (21:01)
[2018-12-02] MEDS: Insulin DETEMIR 100 UNIT/ML X5UNITS SQ SCH (21:02)
[2018-12-03] MEDS: Ascorbic Acid 500 MG TABLET PO SCH (05:57)
[2018-12-03] MEDS: *HR* Enoxaparin 40 MG/0.4 ML SYRINGE SQ SCH (05:57)
[2018-12-03 06:43] LABS: Basophils # 0.2 K/mcL (0.0-0.2); Basophils % 1.4 %; Eosinophils % 7.8 %; Hemoglobin 8.8 g/dL (11.5-15.4); Immature Granulocytes % 1.4 % (0-4); Lymphocytes # 2.7 K/mcL (0.6-4.6); Lymphocytes % 20.9 %; Mean Corpuscular HGB Conc 30.3 g/dL (31.6-35.5); Mean Corpuscular Hemoglobin 26.7 pg (28.0-33.3); Mean Corpuscular Volume 87.9 fL (83.0-100.0); Mean Platelet Volume 8.6 fL (9.4-12.4); Monocytes # 1.2 K/mcL (0.0-1.3); Monocytes % 9.4 %; Platelet Count 527 K/mcL (140-400); Segmented Neutrophils % 59.1 %; White Blood Count 13.1 K/mcL (4.3-11.1)
[2018-12-03 06:44] LABS: Neutrophils # 7.7 K/mcL (1.6-8.9)
[2018-12-03 07:03] LABS: Albumin 2.9 g/dL (3.5-5.7); Albumin/Globulin Ratio 0.7 (1.1-2.2); Bilirubin,Total 0.3 mg/dL (0.3-1.0); Calcium 10.1 mg/dL (8.6-10.3); Globulin 4.2 g/dL (2.4-3.5); Magnesium 1.9 mg/dL (1.6-2.6); Potassium 4.2 mEq/L (3.5-5.1); Total Protein 7.1 g/dL (6.4-8.9)
[2018-12-03] MEDS: Insulin LISPRO 300 UNITS/3 ML VIAL SQ SCH ×4 (08:11→20:41)
[2018-12-03] MEDS: Lactobacillus 1 EACH CAP.SPRINK PO SCH ×2 (08:46→20:44)
[2018-12-03] MEDS: Nitrofurantoin (BID) 100 MG CAPSULE PO SCH ×2 (08:47→17:51)
[2018-12-03] MEDS: cloNIDine HCl 0.1 MG TABLET PO SCH ×2 (08:48→20:39)
[2018-12-03] MEDS: Magnesium Oxide 400 MG TABLET PO SCH (08:48)
[2018-12-03] MEDS: Fluconazole 100 MG TABLET PO SCH ×2 (08:49→20:39)
[2018-12-03] MEDS: Zinc Sulfate 220 MG CAPSULE PO SCH (08:50)
[2018-12-03] MEDS: Cholecalciferol (D-3) 1,000 UNIT (25MCG) TABLET PO SCH (08:50)
[2018-12-03] MEDS: Cyanocobalamin (B-12) 1,000 MCG TABLET PO SCH (08:50)
[2018-12-03] MEDS: Bumetanide 1 MG TABLET PO SCH ×2 (08:50→17:51)
[2018-12-03] MEDS: Nystatin POWDER 30 GM BOTTLE TP SCH ×2 (08:51→20:40)
[2018-12-03] MEDS: *HR* OxyCODONE/APAP 5/325 TABLET PO PRN (13:52)
[2018-12-03] MEDS: *HR* Glimepiride 2 MG TABLET PO SCH (20:38)
[2018-12-03] MEDS: Gabapentin 300 MG CAPSULE PO SCH (20:39)
[2018-12-03] MEDS: traMADol 50 MG TABLET PO PRN (20:39)
[2018-12-03] MEDS: Insulin DETEMIR 100 UNIT/ML X5UNITS SQ SCH (20:40)
[2018-12-04] MEDS: *HR* Enoxaparin 40 MG/0.4 ML SYRINGE SQ SCH (05:56)
[2018-12-04] MEDS: Ascorbic Acid 500 MG TABLET PO SCH (05:56)
[2018-12-04] MEDS: Zinc Sulfate 220 MG CAPSULE PO SCH (09:28)
[2018-12-04] MEDS: Bumetanide 1 MG TABLET PO SCH (09:29)
[2018-12-04] MEDS: Magnesium Oxide 400 MG TABLET PO SCH (09:29)
[2018-12-04] MEDS: traMADol 50 MG TABLET PO PRN (09:30)
[2018-12-04] MEDS: Cholecalciferol (D-3) 1,000 UNIT (25MCG) TABLET PO SCH (09:30)
[2018-12-04] MEDS: cloNIDine HCl 0.1 MG TABLET PO SCH ×2 (09:30→21:09)
[2018-12-04] MEDS: Cyanocobalamin (B-12) 1,000 MCG TABLET PO SCH (09:30)
[2018-12-04] MEDS: Nitrofurantoin (BID) 100 MG CAPSULE PO SCH (09:30)
[2018-12-04] MEDS: Lactobacillus 1 EACH CAP.SPRINK PO SCH (09:30)
[2018-12-04] MEDS: Fluconazole 100 MG TABLET PO SCH (09:31)
[2018-12-04] MEDS: Nystatin POWDER 30 GM BOTTLE TP SCH ×2 (09:31→21:10)
[2018-12-04] MEDS: Insulin LISPRO 300 UNITS/3 ML VIAL SQ SCH ×4 (09:35→21:39)
--- NOTE | 2018-12-04 15:38 | Internal Med Progress Note ---
Date of Encounter: 12/04/18 Time of Encounter: 15:00 - Assessment and plan (1) Degloving injury of left lower leg Current Visit: No Status: Acute Assessment and plan: November 06. Continue amoxicillin and present wound care. November 07. Continue clindamycin and present wound care. Follow-up with surgeon will be arranged since leukocytosis is gradually worsening. November 08. Clindamycin will be discontinued and IV vancomycin initiated per surgeon recommendation. Topical gentamicin with Santyl will be started. Debridement surgery will be arranged. November 13. Follow up with wound clinic personnel 11/19/2018. Continue IV vanc omycin and topical gentamicin and Santyl. November 17. WBC decreased to 12.7 with less left shift on differential on 11/16/2018. Continue present Rx. November 19. A mixup on arranging transportation caused her to miss today's scheduled wound care follow-up appointment. WBC further slightly decreased to 12.4 yesterday with no left shift. Recheck labs in a.m. Continue present wound care/dressing. Follow up with wound care reschedule for next week. November 22. Continue local wound care. Discontinue IV antibiotics with lactobacillus. Follow-up in wound clinic next week as scheduled. November 25. Follow-up in wound clinic tomorrow. November 30. Staff nurse contacted surgeon on-call and described findings of the wound bed. She was instructed to continue orders as written and to follow up in wound clinic on 12/03/2018. December 02. Follow up with wound clinic staff tomorrow as scheduled. December 04. Continue present Rx. Qualifiers: Encounter type: initial encounter Qualified Code(s): S81.802A - Unspecified open wound, left lower leg, initial encounter (2) Anemia Current Visit: Yes Status: Acute Assessment and plan: November 06. Continue oral B12 and ferrous sulfate with ascorbic acid. November 11. Recheck labs in a.m. November 13. Hemoglobin stable at 8.5. November 15. Hemoglobin is decreased slightly to 8.0. Continue to monitor. November 19. Hemoglobin stable at 8.3 yesterday. Recheck in a.m. November 22. Hemoglobin 8.9 today. November 28. Recheck labs in a.m. November 30. Hemoglobin stable at 9.2. Continue to monitor periodically. December 02. Recheck labs in a.m. December 04. Hemoglobin stable at 8.8. Continue to monitor periodically. Qualifiers: Anemia type: unspecified type Qualified Code(s): D64.9 - Anemia, unspecified (3) CKD (chronic kidney disease) stage 3, GFR 30-59 ml/min Current Visit: Yes Status: Chronic Assessment and plan: November 06. Monitor renal indices. November 07. BUN and creatinine stable at 31 and 1.19 respectively with estimated GFR 45. Continue present Rx. November 11. Recheck labs in a.m. November 13. BUN and creatinine stable at 20 and 1.17 respectively with estimated GFR 45. November 15. BUN and creatinine have risen to 30 and 1.45 respectively with estimated GFR 35. Recheck in a.m. November 17. BUN and creatinine stable at 27 and 1.44 respectively. Continue to monitor. November 19. BUN and creatinine were 35 and 1.54 respectively yesterday. Recheck in a.m. November 22. BUN and creatinine were 44 and 1.32 respectively today. Continue to monitor periodically. November 28. Recheck labs in a.m. November 30. Creatinine stable at 1.42. Continue to monitor periodically. December 02. Recheck labs in a.m. December 04. Creatinine slightly higher at 1.74. Bumex dose will be decreased to 1 mg daily. (4) Hypomagnesemia Current Visit: Yes Status: Acute Assessment and plan: November 06. Continue supplemental magnesium oxide. November 07. Check magnesium level in a.m. November 08. Magnesium level improved to 1.7. Continue present Rx. November 15. Magnesium level has risen to 2.1. Continue to monitor. November 19. Magnesium level stable at 2.0 yesterday. Continue present Rx. November 28. Recheck labs in a.m. November 30. Magnesium stable at 1.9. December 02. Recheck labs in a.m. December 04. Magnesium level stable at 1.9. (5) Diabetes Current Visit: No Status: Chronic Assessment and plan: November 06. Hemoglobin A1c was 13.2% on 11/01/2018. Continue Amaryl, Levemir/Lantus, and Accu-Cheks with SSI. November 08. Accu-Cheks acceptable. Continue present Rx. 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 Continue clonidine. November 07. Continue clonidine and Lopressor Qualifiers: Hypertension type: essential hypertension Qualified Code(s): I10 - Essential (primary) hypertension (7) TARA treated with BiPAP Current Visit: No Status: Chronic Assessment and plan: November 06. Continue BiPAP at bedtime. (8) Zinc deficiency Current Visit: Yes Status: Acute Assessment and plan: November 07. Zinc level low at 40.9. Start oral zinc sulfate. November 08. Continue zinc sulfate. (9) Candidiasis Current Visit: No Status: Acute Assessment and plan: November 08. The surgeon recommended use of nystatin powder instead of ketoconazole. November 09. Continue oral Diflucan and topical nystatin powder - Subjective Interval history: November 06. She has no new complaints. November 07. She has no new complaints. November 08. She has no new complaints. She saw Dr. Richardson today who feels additional surgery for debridement is needed. November 11. She has no new complaints. She was given Vistaril by Dr. Hillman over the weekend for itching. She states her pruritus has improved. November 13. She has no new complaints. She was seen by wound clinic staff at [facility] earlier today. She reports Dr. Bianchi did wound debridement with follow-up appointment scheduled for 11/19/2018. November 15. She has no new complaints November 17. She has no new complaints. November 19. She has no new complaints. November 22. She has no new complaints. She was seen by Dr. Richardson today who was pleased with her overall progress. Vancomycin will be discontinued. A follow- up wound clinic appointment is scheduled for next week. November 25. She has no new complaints and feels better. November 28. She has no new complaints and feels better. She reports she had good report from wound clinic visit 2 days ago. November 30. She has no new complaints. December 02. She has no new complaints. December 04. She has no new complaints. She was seen by wound clinic personnel yesterday. - Constitutional Vitals: Temp Pulse Resp BP Pulse Ox 97.9 F 75 16 135/86 99 12/04/18 07:03 12/04/18 07:03 12/04/18 07:03 12/04/18 07:03 12/04/18 07:03 Exam: She is resting comfortably in bed and appears in no acute distress. Her affect is bright and cheerful. There is no extremity edema in her right leg or visualized portion of her left leg. I reviewed her medications and lab results. Internal Medicine: Result - Labs CBC & Chem 7: 12/03/18 06:17 12/03/18 06:17 Consult Discharge Plan - Plan Referrals: NONE,PCP [Primary Care Provider] - 1 week
[2018-12-04] MEDS: Mag Hydrox/Al Hydrox/Simeth 30 ML UDC PO PRN (17:41)
[2018-12-04] MEDS: *HR* Glimepiride 2 MG TABLET PO SCH (21:09)
[2018-12-04] MEDS: Gabapentin 300 MG CAPSULE PO SCH (21:09)
[2018-12-04] MEDS: ALPRAZolam 0.5 MG TABLET PO PRN (21:10)
[2018-12-04] MEDS: Insulin DETEMIR 100 UNIT/ML X5UNITS SQ SCH (21:39)
[2018-12-05] MEDS: Ascorbic Acid 500 MG TABLET PO SCH (05:52)
[2018-12-05] MEDS: *HR* Enoxaparin 40 MG/0.4 ML SYRINGE SQ SCH (05:52)
[2018-12-05] MEDS: Cholecalciferol (D-3) 1,000 UNIT (25MCG) TABLET PO SCH (08:33)
[2018-12-05] MEDS: Zinc Sulfate 220 MG CAPSULE PO SCH (08:33)
[2018-12-05] MEDS: Magnesium Oxide 400 MG TABLET PO SCH (08:33)
[2018-12-05] MEDS: cloNIDine HCl 0.1 MG TABLET PO SCH ×2 (08:33→20:56)
[2018-12-05] MEDS: Bumetanide 1 MG TABLET PO SCH (08:34)
[2018-12-05] MEDS: Cyanocobalamin (B-12) 1,000 MCG TABLET PO SCH (08:34)
[2018-12-05] MEDS: traMADol 50 MG TABLET PO PRN ×3 (08:34→20:56)
[2018-12-05] MEDS: Insulin LISPRO 300 UNITS/3 ML VIAL SQ SCH ×4 (08:34→20:57)
[2018-12-05] MEDS: Nystatin POWDER 30 GM BOTTLE TP SCH ×2 (08:37→20:57)
[2018-12-05] MEDS: *HR* Glimepiride 2 MG TABLET PO SCH (20:55)
[2018-12-05] MEDS: hydrOXYzine pamoate 25 MG CAPSULE PO PRN (20:56)
[2018-12-05] MEDS: Insulin DETEMIR 100 UNIT/ML X5UNITS SQ SCH (20:56)
[2018-12-05] MEDS: Gabapentin 300 MG CAPSULE PO SCH (20:56)
[2018-12-06] MEDS: Ascorbic Acid 500 MG TABLET PO SCH (05:35)
[2018-12-06] MEDS: *HR* Enoxaparin 40 MG/0.4 ML SYRINGE SQ SCH (05:35)
[2018-12-06] MEDS: Insulin LISPRO 300 UNITS/3 ML VIAL SQ SCH ×4 (08:08→21:09)
[2018-12-06] MEDS: Bumetanide 1 MG TABLET PO SCH (08:09)
[2018-12-06] MEDS: Zinc Sulfate 220 MG CAPSULE PO SCH (08:09)
[2018-12-06] MEDS: Cyanocobalamin (B-12) 1,000 MCG TABLET PO SCH (08:09)
[2018-12-06] MEDS: Cholecalciferol (D-3) 1,000 UNIT (25MCG) TABLET PO SCH (08:09)
[2018-12-06] MEDS: Magnesium Oxide 400 MG TABLET PO SCH (08:10)
[2018-12-06] MEDS: cloNIDine HCl 0.1 MG TABLET PO SCH ×2 (08:10→21:09)
[2018-12-06] MEDS: Nystatin POWDER 30 GM BOTTLE TP SCH ×2 (08:11→21:10)
--- NOTE | 2018-12-06 10:23 | Internal Med Progress Note ---
Date of Encounter: 12/06/18 Time of Encounter: 10:12 - Assessment and plan (1) Degloving injury of left lower leg Current Visit: No Status: Acute Assessment and plan: November 06. Continue amoxicillin and present wound care. November 07. Continue clindamycin and present wound care. Follow-up with surgeon will be arranged since leukocytosis is gradually worsening. November 08. Clindamycin will be discontinued and IV vancomycin initiated per surgeon recommendation. Topical gentamicin with Santyl will be started. Debridement surgery will be arranged. November 13. Follow up with wound clinic personnel 11/19/2018. Continue IV vanc omycin and topical gentamicin and Santyl. November 17. WBC decreased to 12.7 with less left shift on differential on 11/16/2018. Continue present Rx. November 19. A mixup on arranging transportation caused her to miss today's scheduled wound care follow-up appointment. WBC further slightly decreased to 12.4 yesterday with no left shift. Recheck labs in a.m. Continue present wound care/dressing. Follow up with wound care reschedule for next week. November 22. Continue local wound care. Discontinue IV antibiotics with lactobacillus. Follow-up in wound clinic next week as scheduled. November 25. Follow-up in wound clinic tomorrow. November 30. Staff nurse contacted surgeon on-call and described findings of the wound bed. She was instructed to continue orders as written and to follow up in wound clinic on 12/03/2018. December 02. Follow up with wound clinic staff tomorrow as scheduled. December 04. Continue present Rx. December 06. Continue present Rx. Because of the injury she has mobility limitation that impairs her ability to do toileting dressing and bathing. Limitation cannot be improved by cane or walker. A manual wheelchair will significantly improve her ability to. Anticipate in daily activities in the home. She expressed willingness to use the wheelchair in the home on a regular basis. She has upper extremity function and other physical and mental capabilities needed to safety propel the wheelchair in the home. She will also need a heavy-duty bedside commode to assist in toileting. Qualifiers: Encounter type: initial encounter Qualified Code(s): S81.802A - Unspecified open wound, left lower leg, initial encounter (2) Anemia Current Visit: Yes Status: Acute Assessment and plan: November 06. Continue oral B12 and ferrous sulfate with ascorbic acid. November 11. Recheck labs in a.m. November 13. Hemoglobin stable at 8.5. November 15. Hemoglobin is decreased slightly to 8.0. Continue to monitor. November 19. Hemoglobin stable at 8.3 yesterday. Recheck in a.m. November 22. Hemoglobin 8.9 today. November 28. Recheck labs in a.m. November 30. Hemoglobin stable at 9.2. Continue to monitor periodically. December 02. Recheck labs in a.m. December 04. Hemoglobin stable at 8.8. Continue to monitor periodically. Qualifiers: Anemia type: unspecified type Qualified Code(s): D64.9 - Anemia, unspecified (3) CKD (chronic kidney disease) stage 3, GFR 30-59 ml/min Current Visit: Yes Status: Chronic Assessment and plan: November 06. Monitor renal indices. November 07. BUN and creatinine stable at 31 and 1.19 respectively with estimated GFR 45. Continue present Rx. November 11. Recheck labs in a.m. November 13. BUN and creatinine stable at 20 and 1.17 respectively with estimated GFR 45. November 15. BUN and creatinine have risen to 30 and 1.45 respectively with estimated GFR 35. Recheck in a.m. November 17. BUN and creatinine stable at 27 and 1.44 respectively. Continue to monitor. November 19. BUN and creatinine were 35 and 1.54 respectively yesterday. Recheck in a.m. November 22. BUN and creatinine were 44 and 1.32 respectively today. Continue to monitor periodically. November 28. Recheck labs in a.m. November 30. Creatinine stable at 1.42. Continue to monitor periodically. December 02. Recheck labs in a.m. December 04. Creatinine slightly higher at 1.74. Bumex dose will be decreased to 1 mg daily. (4) Hypomagnesemia Current Visit: Yes Status: Acute Assessment and plan: November 06. Continue supplemental magnesium oxide. November 07. Check magnesium level in a.m. November 08. Magnesium level improved to 1.7. Continue present Rx. November 15. Magnesium level has risen to 2.1. Continue to monitor. November 19. Magnesium level stable at 2.0 yesterday. Continue present Rx. November 28. Recheck labs in a.m. November 30. Magnesium stable at 1.9. December 02. Recheck labs in a.m. December 04. Magnesium level stable at 1.9. (5) Diabetes Current Visit: No Status: Chronic Assessment and plan: November 06. Hemoglobin A1c was 13.2% on 11/01/2018. Continue Amaryl, Levemir/Lantus, and Accu-Cheks with SSI. November 08. Accu-Cheks acceptable. Continue present Rx. December 06. Review of blood sugars shows consistently now above desirable range. Levemir dose will be increased to 50 units at bedtime. Qualifiers: Diabetes mellitus type: type 2 Diabetes mellitus correction insulin use: with intermediate card tender use Diabetes mellitus complication status: with hyperglycemia Qualified Code(s): E11.65 - Type 2 diabetes mellitus with hyperglycemia; Z79.4 - prison (current) use of insulin (6) HTN (hypertension) Current Visit: No Status: Chronic Assessment and plan: November 06. Continue clonidine. November 07. Continue clonidine and Lopressor Qualifiers: Hypertension type: essential hypertension Qualified Code(s): I10 - Essential (primary) hypertension (7) TARA treated with BiPAP Current Visit: No Status: Chronic Assessment and plan: November 06. Continue BiPAP at bedtime. (8) Zinc deficiency Current Visit: Yes Status: Acute Assessment and plan: November 07. Zinc level low at 40.9. Start oral zinc sulfate. November 08. Continue zinc sulfate. (9) Candidiasis Current Visit: No Status: Acute Assessment and plan: November 08. The surgeon recommended use of nystatin powder instead of ketoconazole. November 09. Continue oral Diflucan and topical nystatin powder December 06. Diflucan has been discontinued. Continue to monitor. - Subjective Interval history: November 06. She has no new complaints. November 07. She has no new complaints. November 08. She has no new complaints. She saw Dr. Richardson today who feels additional surgery for debridement is needed. November 11. She has no new complaints. She was given Vistaril by Dr. Hillman over the weekend for itching. She states her pruritus has improved. November 13. She has no new complaints. She was seen by wound clinic staff at [facility] earlier today. She reports Dr. Bianchi did wound debridement with follow-up appointment scheduled for 11/19/2018. November 15. She has no new complaints November 17. She has no new complaints. [place] 6. She has no new complaints. November 22. She has no new complaints. She was seen by Dr. Richardson today who was pleased with her overall progress. Vancomycin will be discontinued. A follow- up wound clinic appointment is scheduled for next week. November 25. She has no new complaints and feels better. November 28. She has no new complaints and feels better. She reports she had good report from wound clinic visit 2 days ago. November 30. She has no new complaints. December 02. She has no new complaints. December 04. She has no new complaints. She was seen by wound clinic personnel yesterday. December 06. She has no new complaints. - Constitutional Vitals: Temp Pulse Resp BP Pulse Ox 98.3 F 68 18 125/54 94 12/06/18 07:16 12/06/18 07:16 12/06/18 07:16 12/06/18 07:16 12/06/18 07:16 Exam: She is resting comfortably in bed and appears in no acute distress. She has no edema of the dorsum of the left foot. There is Coban wrap in place over the left lower leg. The right foot shows trace edema of the dorsum of the foot but no significant edema of the lower leg otherwise. Her affect is bright and cheerful. I reviewed her medications and lab results. Internal Medicine: Result - Labs CBC & Chem 7: 12/03/18 06:17 12/03/18 06:17 Consult Discharge Plan - Plan Referrals: NONE,PCP [Primary Care Provider] - 1 week
[2018-12-06] MEDS: traMADol 50 MG TABLET PO PRN (18:35)
[2018-12-06] MEDS: *HR* Glimepiride 2 MG TABLET PO SCH (21:09)
[2018-12-06] MEDS: Insulin DETEMIR 100 UNIT/ML X5UNITS SQ SCH (21:09)
[2018-12-06] MEDS: ALPRAZolam 0.5 MG TABLET PO PRN (21:10)
[2018-12-06] MEDS: hydrOXYzine pamoate 25 MG CAPSULE PO PRN (21:10)
[2018-12-06] MEDS: Gabapentin 300 MG CAPSULE PO SCH (21:10)
[2018-12-07] MEDS: Ascorbic Acid 500 MG TABLET PO SCH (05:40)
[2018-12-07] MEDS: traMADol 50 MG TABLET PO PRN ×3 (05:41→23:47)
[2018-12-07] MEDS: *HR* Enoxaparin 40 MG/0.4 ML SYRINGE SQ SCH (05:41)
[2018-12-07] MEDS: Insulin LISPRO 300 UNITS/3 ML VIAL SQ SCH ×4 (08:02→21:11)
[2018-12-07] MEDS: Cholecalciferol (D-3) 1,000 UNIT (25MCG) TABLET PO SCH (08:08)
[2018-12-07] MEDS: Magnesium Oxide 400 MG TABLET PO SCH (08:08)
[2018-12-07] MEDS: Cyanocobalamin (B-12) 1,000 MCG TABLET PO SCH (08:09)
[2018-12-07] MEDS: cloNIDine HCl 0.1 MG TABLET PO SCH ×2 (08:10→21:11)
[2018-12-07] MEDS: Nystatin POWDER 30 GM BOTTLE TP SCH ×2 (08:10→21:14)
[2018-12-07] MEDS: Bumetanide 1 MG TABLET PO SCH (08:10)
[2018-12-07] MEDS: Zinc Sulfate 220 MG CAPSULE PO SCH (08:10)
[2018-12-07] MEDS: Gabapentin 300 MG CAPSULE PO SCH (21:11)
[2018-12-07] MEDS: *HR* Glimepiride 2 MG TABLET PO SCH (21:11)
[2018-12-07] MEDS: Insulin DETEMIR 100 UNIT/ML X5UNITS SQ SCH (21:12)
[2018-12-08] MEDS: Ascorbic Acid 500 MG TABLET PO SCH (05:36)
[2018-12-08] MEDS: *HR* Enoxaparin 40 MG/0.4 ML SYRINGE SQ SCH (05:36)
[2018-12-08 08:07] VITALS: BP 137/59
[2018-12-08] MEDS: Insulin LISPRO 300 UNITS/3 ML VIAL SQ SCH ×2 (08:09→12:10)
[2018-12-08] MEDS: Magnesium Oxide 400 MG TABLET PO SCH (08:11)
[2018-12-08] MEDS: Cyanocobalamin (B-12) 1,000 MCG TABLET PO SCH (08:12)
[2018-12-08] MEDS: Bumetanide 1 MG TABLET PO SCH (08:13)
[2018-12-08] MEDS: Zinc Sulfate 220 MG CAPSULE PO SCH (08:13)
[2018-12-08] MEDS: Cholecalciferol (D-3) 1,000 UNIT (25MCG) TABLET PO SCH (08:13)
[2018-12-08] MEDS: cloNIDine HCl 0.1 MG TABLET PO SCH (08:14)
--- NOTE | 2018-12-08 10:14 | Discharge Summary ---
Date of Encounter: 12/08/18 Time of Encounter: 10:00 - Discharge Diagnosis (1) Degloving injury of left lower leg Priority: Primary Status: Acute Qualifiers: Encounter type: initial encounter Qualified Code(s): S81.802A - Unspecified open wound, left lower leg, initial encounter (2) Anemia Priority: Secondary Status: Acute Qualifiers: Anemia type: unspecified type Qualified Code(s): D64.9 - Anemia, unspecified (3) CKD (chronic kidney disease) stage 3, GFR 30-59 ml/min Priority: Secondary Status: Chronic (4) Hypomagnesemia Priority: Secondary Status: Acute (5) Diabetes Priority: Secondary Status: Chronic Qualifiers: Diabetes mellitus type: type 2 Diabetes mellitus manager terminal insulin use: with fdc use Diabetes mellitus complication status: with hyperglycemia Qualified Code(s): E11.65 - Type 2 diabetes mellitus with hyperglycemia; Z79.4 - joint terminal attack controller (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 Fiore is a 73 year old female who was hospitalized at [facility] October 24- after experiencing a complex degloving left lower leg laceration from a fall at [facility]. She underwent surgical repair with debridement, and complex closure with split thickness skin graft. A wound VAC was used initially but discontinued on postop day 7. She remained stable postoperatively and was discharged to [facility] swing bed for ongoing care needs. I saw her November 05 and performed the swing that history and physical. Oral antibiotics were discontinued after a follow-up visit with the surgeon showed evidence of infection. She was started on IV vancomycin and topical gentamicin with Santyl. She had follow up with wound clinic staff and received additional topical intervention. IV vancomycin was discontinued after approximately 2 week course. She will continue to follow at wound clinic. Home health nurses will do daily wound dressing changes. Anemia testing 11/05/2018 showed iron 26, transferrin saturation 12%, transferrin 155, ferritin 200, B12 247, and folate 12.1. She was given a B12 injection and started on oral B12 supplement. She was also started on oral ferrous sulfate with ascorbic acid. These will be continued at discharge. She was given Bumex and had significant diuresis with resolution of peripheral edema. Bumex dose will be decreased to 0.5 mg daily at home. Supplemental potassium will be given. Her PCP can monitor labs. She was started on supplemental magnesium oxide for hypomagnesemia. This will be continued at discharge with a 14 day prescription for magnesium oxide given. Her PCP can monitor labs. Hemoglobin A1c was elevated at 13.2% on 11/01/2018. Amaryl will be continued. Lantus dose will be increased to 60 units at bedtime. Zinc level returned low at 40.9. Oral zinc sulfate was started. She will receive a prescription for 14 day supply at discharge. Her PCP can monitor labs. She was placed on oral Diflucan and topical nystatin powder for skin yeast infection. Diflucan was discontinued prior to discharge. Her PCP can continue to monitor. Physical therapy and occupational therapy evaluations with ongoing intervention were done. She made satisfactory progress. Insurance issued NOMNOC and patient was discharged home December 08. Home else services will be ordered. Room air oximetry will be checked prior to discharge. She will follow with her PCP Dr. Yordy Nevarez in [place] within 1 week. She will follow up with wound clinic as directed. - Time Spent with Patient Total time spent providing and/or coordinating discharge services: - Discharge Medications Prescriptions: New Bumetanide [Bumex] 0.5 mg PO DAILY #15 tablet Ferrous Sulfate 325 mg PO 0630 tablet Magnesium Oxide [Mag-Ox] 400 mg PO DAILY #14 tablet Potassium Chloride 20 meq PO DAILY #30 tab.er.prt Metoprolol XL (24 HR) Succ [Toprol XL] 50 mg PO DAILY #30 tab.er.24h Tramadol HCl [Ultram] 50 mg PO Q4H PRN 5 Days #30 tab PRN Reason: Pain hydrOXYzine pamoate [Vistaril] 25 mg PO Q6H PRN #12 capsule PRN Reason: Itching Cyanocobalamin (B-12) [Vitamin B12] 1,000 mcg PO DAILY tablet Ascorbic Acid [Vitamin C] 500 mg PO 0630 tablet ALPRAZolam [Xanax 0.5 MG Tablet] 0.5 mg PO Q6H PRN 3 Days #12 tablet PRN Reason: Anxiety Zinc Sulfate 220 mg PO DAILY #14 capsule Continued Insulin ASPART [NovoLOG] 5 unit SQ TIDWM Rosuvastatin Calcium [Crestor] 10 mg PO DAILY Glimepiride [Amaryl] 4 mg PO HS Cholecalciferol (D-3) [Vitamin D] 5,000 unit PO DAILY Bisacodyl [Dulcolax] 10 mg RC HS PRN supp.rect PRN Reason: constipation Nystatin POWDER [Nystop] 1 appl TP TID bottle Docusate [Colace] 100 mg PO BID capsule Meclizine [Antivert] 25 mg PO TID PRN tablet PRN Reason: Dizziness Polyethylene Glycol 3350 [MiraLAX] 17 gm PO DAILY powd.pack Insulin LISPRO [HumaLOG] 0 units SQ HS vial Insulin LISPRO [HumaLOG] 0 units SQ TIDAC vial Insulin LISPRO [HumaLOG] 10 units SQ TIDWM vial cloNIDine HCl [CloNIDine HCl] 0.1 mg PO BID #60 tablet Gabapentin [Neurontin] 300 mg PO HS 30 Days #30 capsule Changed Insulin Glargine [Lantus] 60 units SQ HS #0 Discontinued Amoxicillin [Amoxil] 500 mg PO TID capsule Clindamycin [Cleocin] 300 mg PO Q8HR capsule Metoprolol [Lopressor] 5 mg IVP Q6HR PRN vial PRN Reason: HTN and Tachycardia Home Medications: Glimepiride [Amaryl] 4 mg PO HS 10/24/18 [History] Insulin ASPART [NovoLOG] 5 unit SQ TIDWM 10/24/18 [History] Rosuvastatin Calcium [Crestor] 10 mg PO DAILY 10/24/18 [History] Cholecalciferol (D-3) [Vitamin D] 5,000 unit PO DAILY 10/25/18 [History] Bisacodyl [Dulcolax] 10 mg RC HS PRN supp.rect 11/04/18 [Rx] Docusate [Colace] 100 mg PO BID capsule 11/04/18 [Rx] Insulin LISPRO [HumaLOG] 0 units SQ HS vial 11/04/18 [Rx] Insulin LISPRO [HumaLOG] 0 units SQ TIDAC vial 11/04/18 [Rx] Insulin LISPRO [HumaLOG] 10 units SQ TIDWM vial 11/04/18 [Rx] Meclizine [Antivert] 25 mg PO TID PRN tablet 11/04/18 [Rx] Nystatin POWDER [Nystop] 1 appl TP TID bottle 11/04/18 [Rx] Polyethylene Glycol 3350 [MiraLAX] 17 gm PO DAILY powd.pack 11/04/18 [Rx] ALPRAZolam [Xanax 0.5 MG Tablet] 0.5 mg PO Q6H PRN 3 Days #12 tablet 12/08/18 [Rx] Ascorbic Acid [Vitamin C] 500 mg PO 0630 tablet 12/08/18 [Rx] Bumetanide [Bumex] 0.5 mg PO DAILY #15 tablet 12/08/18 [Rx] Cyanocobalamin (B-12) [Vitamin B12] 1,000 mcg PO DAILY tablet 12/08/18 [Rx] Ferrous Sulfate 325 mg PO 0630 tablet 12/08/18 [Rx] Gabapentin [Neurontin] 300 mg PO HS 30 Days #30 capsule 12/08/18 [Rx] Insulin Glargine [Lantus] 60 units SQ HS #0 12/08/18 [Rx] Magnesium Oxide [Mag-Ox] 400 mg PO DAILY #14 tablet 12/08/18 [Rx] Metoprolol XL (24 HR) Succ [Toprol XL] 50 mg PO DAILY #30 tab.er.24h 12/08/18 [Rx] Potassium Chloride 20 meq PO DAILY #30 tab.er.prt 12/08/18 [Rx] Tramadol HCl [Ultram] 50 mg PO Q4H PRN 5 Days #30 tab 12/08/18 [Rx] Zinc Sulfate 220 mg PO DAILY #14 capsule 12/08/18 [Rx] cloNIDine HCl [CloNIDine HCl] 0.1 mg PO BID #60 tablet 12/08/18 [Rx] hydrOXYzine pamoate [Vistaril] 25 mg PO Q6H PRN #12 capsule 12/08/18 [Rx] Allergies/Adverse Reactions: Allergy/AdvReac Type Severity Reaction Status Date / Time morphine Allergy Hives Verified 10/25/18 21:01 propoxyphene [From Darvon] Allergy Hives Verified 10/25/18 21:01 Sulfa (Sulfonamide Allergy Hives Verified 10/25/18 21:01 Antibiotics) latex AdvReac Rash Verified 10/29/18 08:33 Date of admission: 11/04/18 15:52 Primary care physician: Yordy Nevarez Consults: 11/04/18 14:34 Consult to Director Of Archives [CONS] Routine Reason for SW Consult: discharge planning 11/04/18 14:38 Consult to Physical Therapy [CONS] Routine Comment: Evaluate, develop and implement POC Reason for Consult: weakness Does patient have active BEDREST order?: No Is patient medically & hemodynamically stable?: Yes Patient assessed for mobility or mobilized this visit?: No OT [Consult to Occupational Therapy] [CONS] Routine Comment: Evaluate, develop and implement POC Reason for Consult: weakness Does patient have active BEDREST order?: No Is patient medically & hemodynamically stable?: Yes Patient assessed for mobility or mobilized this visit?: No - Constitutional Vitals: Temp Pulse Resp BP Pulse Ox 98.5 F 72 16 137/59 96 12/08/18 08:06 12/08/18 08:06 12/08/18 08:06 12/08/18 08:06 12/08/18 08:06 - Patient Status Disposition: Home Health Service - Discharge Instructions Follow Up With: NONE,PCP [Primary Care Provider] - 1 week - Diet and Activity Activity: as per physical therapy Diet: diabetic diet
[2018-12-08] MEDS: Nystatin POWDER 30 GM BOTTLE TP SCH (10:45)
--- NOTE | 2018-12-08 10:45 | Physician Discharge Referral ---
Home Health/Hosp Referral Info Transfer to: Home Health Attending Provider: Devaughn Provider in Charge Post Discharge: PCP (Yordy Nevarez D.O.) - Diagnosis (1) Degloving injury of left lower leg Priority: Primary Status: Acute (2) Anemia Priority: Secondary Status: Acute (3) CKD (chronic kidney disease) stage 3, GFR 30-59 ml/min Priority: Secondary Status: Chronic (4) Hypomagnesemia Priority: Secondary Status: Acute (5) Diabetes Priority: Secondary Status: Chronic (6) HTN (hypertension) Priority: Secondary Status: Chronic (7) TARA treated with BiPAP Priority: Secondary Status: Chronic (8) Zinc deficiency Priority: Secondary Status: Acute (9) Candidiasis Priority: Secondary Status: Acute - Respiratory Orders Smoking Cessation: Smoking cessation has been advised. For more information, call the [place] Tobacco Quit Line at 4-195-NYLL-NOW. - Dressing/Wound Care Site: Daily left lower leg wound dressing changes with ABD pads, Kerlix, and Coban. - Diet/Nutrition Diet/Nutrition Orders: No Concentrated Sweets - Activity Activity Orders: Walker - Services Needed Following services are medically necessary services: Nursing, Home Health Aide, Physical Therapy, Occupational Therapy - Transfer Medications Prescriptions: Bumetanide [Bumex] 0.5 mg PO DAILY #15 tablet cloNIDine HCl [CloNIDine HCl] 0.1 mg PO BID #60 tablet Magnesium Oxide [Mag-Ox] 400 mg PO DAILY #14 tablet Gabapentin [Neurontin] 300 mg PO HS 30 Days #30 capsule Potassium Chloride 20 meq PO DAILY #30 tab.er.prt Metoprolol XL (24 HR) Succ [Toprol XL] 50 mg PO DAILY #30 tab.er.24h Tramadol HCl [Ultram] 50 mg PO Q4H PRN 5 Days #30 tab PRN Reason: Pain hydrOXYzine pamoate [Vistaril] 25 mg PO Q6H PRN #12 capsule PRN Reason: Itching ALPRAZolam [Xanax 0.5 MG Tablet] 0.5 mg PO Q6H PRN 3 Days #12 tablet PRN Reason: Anxiety Zinc Sulfate 220 mg PO DAILY #14 capsule Home Medications: Glimepiride [Amaryl] 4 mg PO HS 10/24/18 [History] Insulin ASPART [NovoLOG] 5 unit SQ TIDWM 10/24/18 [History] Rosuvastatin Calcium [Crestor] 10 mg PO DAILY 10/24/18 [History] Cholecalciferol (D-3) [Vitamin D] 5,000 unit PO DAILY 10/25/18 [History] Bisacodyl [Dulcolax] 10 mg RC HS PRN supp.rect 11/04/18 [Rx] Docusate [Colace] 100 mg PO BID capsule 11/04/18 [Rx] Insulin LISPRO [HumaLOG] 0 units SQ HS vial 11/04/18 [Rx] Insulin LISPRO [HumaLOG] 0 units SQ TIDAC vial 11/04/18 [Rx] Insulin LISPRO [HumaLOG] 10 units SQ TIDWM vial 11/04/18 [Rx] Meclizine [Antivert] 25 mg PO TID PRN tablet 11/04/18 [Rx] Nystatin POWDER [Nystop] 1 appl TP TID bottle 11/04/18 [Rx] Polyethylene Glycol 3350 [MiraLAX] 17 gm PO DAILY powd.pack 11/04/18 [Rx] ALPRAZolam [Xanax 0.5 MG Tablet] 0.5 mg PO Q6H PRN 3 Days #12 tablet 12/08/18 [Rx] Ascorbic Acid [Vitamin C] 500 mg PO 0630 tablet 12/08/18 [Rx] Bumetanide [Bumex] 0.5 mg PO DAILY #15 tablet 12/08/18 [Rx] Cyanocobalamin (B-12) [Vitamin B12] 1,000 mcg PO DAILY tablet 12/08/18 [Rx] Ferrous Sulfate 325 mg PO 0630 tablet 12/08/18 [Rx] Gabapentin [Neurontin] 300 mg PO HS 30 Days #30 capsule 12/08/18 [Rx] Insulin Glargine [Lantus] 60 units SQ HS #0 12/08/18 [Rx] Magnesium Oxide [Mag-Ox] 400 mg PO DAILY #14 tablet 12/08/18 [Rx] Metoprolol XL (24 HR) Succ [Toprol XL] 50 mg PO DAILY #30 tab.er.24h 12/08/18 [Rx] Potassium Chloride 20 meq PO DAILY #30 tab.er.prt 12/08/18 [Rx] Tramadol HCl [Ultram] 50 mg PO Q4H PRN 5 Days #30 tab 12/08/18 [Rx] Zinc Sulfate 220 mg PO DAILY #14 capsule 12/08/18 [Rx] cloNIDine HCl [CloNIDine HCl] 0.1 mg PO BID #60 tablet 12/08/18 [Rx] hydrOXYzine pamoate [Vistaril] 25 mg PO Q6H PRN #12 capsule 12/08/18 [Rx] Allergies/Adverse Reactions: Allergy/AdvReac Type Severity Reaction Status Date / Time morphine Allergy Hives Verified 10/25/18 21:01 propoxyphene [From Darvon] Allergy Hives Verified 10/25/18 21:01 Sulfa (Sulfonamide Allergy Hives Verified 10/25/18 21:01 Antibiotics) latex AdvReac Rash Verified 10/29/18 08:33 Certification: Further, I certify that my clinical findings support that this patient is homebound (i.e. absences from home require considerable and taxing effort and are for medical reasons or adventism services or infrequently or short duration when for other reasons) because: Homebound Reason: Leaving home requires considerable and taxing effort due to condition (Impaired walking ability secondary to large left lower leg wound.) Attestation: My signature below is to certify that this patient is under my care and that I, or nurse practitioner, or a physician's tutoring assistant working with me, has a f mariah-to-face encounter with this patient.
[2018-12-08] MEDS: traMADol 50 MG TABLET PO PRN (11:08)
== END 2018-12-08 13:20 | disposition home health service (06) | DRG 945 ==
LOC: INPPIK 15:52
PROVIDERS: ADMIT Internal Medicine; ATTEND Internal Medicine

== ENCOUNTER 2021-05-16 12:58 | Inpatient (IN) ==
[2021-05-16] MEDS: 0.9 % Sodium Chloride 1,000 ML IVC SCH ×3 (13:19→17:48)
[2021-05-16 13:35] LABS: Hematocrit 39.8 % (35.3-44.9); Mean Corpuscular HGB Conc 32.7 g/dL (31.6-35.5); Mean Corpuscular Hemoglobin 28.7 pg (28.0-33.3); Mean Corpuscular Volume 87.9 fL (83.0-100.0); Mean Platelet Volume 9.5 fL (9.4-12.4); Platelet Count 378 K/mcL (140-400); Red Blood Count 4.53 M/mcL (3.82-4.97); Red Cell Distribution Width 13.4 % (11.5-14.5); White Blood Count 27.1 K/mcL (4.3-11.1)
[2021-05-16 13:45] LABS: VBG HCO3 23 mEq/L (21-27); VBG PCO2 45 mmHg (41-51); VBG PH 7.33 pH Units (7.32-7.42); VBG PO2 42 mmHg (25-50)
[2021-05-16 13:56] LABS: Alanine Aminotransferase 58 Units/L (7-52); Albumin 3.3 g/dL (3.5-5.7); Albumin/Globulin Ratio 1.1 (1.1-2.2); Alkaline Phosphatase 178 Units/L (34-104); Aspartate Amino Transferase 61 Units/L (13-39); BUN/Creatinine Ratio 23 (6-26); Bilirubin,Total 0.6 mg/dL (0.3-1.0); Blood Urea Nitrogen 36 mg/dL (8-23); Calcium 8.6 mg/dL (8.6-10.3); Carbon Dioxide 24 mEq/L (23-29); Chloride 96 mEq/L (98-107); Globulin 3.1 g/dL (2.4-3.5); Glucose 422 mg/dL (70-105); Magnesium 1.3 mg/dL (1.6-2.6); Osmolality,Calculated 298 (280-300); Phosphorous 2.3 mg/dL (2.7-4.5); Potassium 3.8 mEq/L (3.5-5.1); Sodium 131 mEq/L (136-145); Total Protein 6.4 g/dL (6.4-8.9); eGFR For African Americans 38 (> 60); eGFR For Non-African Americans 32 (> 60)
[2021-05-16 13:57] LABS: Troponin I < 0.03 ng/mL (< 0.04)
[2021-05-16 14:20] LABS: Lymphocytes # 3.8 K/mcL (0.6-4.6); Monocytes # 0.5 K/mcL (0.0-1.3); Neutrophils # 22.2 K/mcL (1.6-8.9)
[2021-05-16 14:22] LABS: Platelet Estimate Normal (Normal)
[2021-05-16 15:14] LABS: Bilirubin,Urine Negative (Negative); Blood,Urine Large (Negative); Clarity,Urine Slightly Cloudy (Clear); Color,Urine Yellow (Yellow); Glucose,Urine (UA) >=1000 mg/dL (Normal); Ketones,Urine Negative (Negative); Leukocyte Esterase,Urine Small (Negative); Nitrite,Urine Negative (Negative); Protein,Urine Negative (Neg-Trace); Urobilinogen,Urine Normal (Normal)
[2021-05-16 15:18] LABS: Bacteria,Urine Many per hpf (None-Few); RBC,Urine 15-30 per hpf (0-3); WBC,Urine 30-50 per hpf (0-3)
[2021-05-16] MEDS ORDERED: cefTRIAXone 2,000 MG in 0.9 % Sodium Chloride Mini Bag 100 ML IVPB ONE (15:24)
[2021-05-16] MEDS ORDERED: 0.9 % Sodium Chloride 1,000 ML IVC ONE (15:30)
[2021-05-16] MEDS ORDERED: Ondansetron 4 MG/2 ML VIAL IVP PRN (18:55)
[2021-05-16] MEDS ORDERED: Naloxone 0.4 MG/ML INJ IVP PRN (18:55)
[2021-05-16] MEDS ORDERED: Mag Hydrox/Al Hydrox/Simeth 30 ML UDC PO PRN (18:55)
[2021-05-16] MEDS ORDERED: MOM Conc 10 ML UD.LIQ PO PRN (18:55)
[2021-05-16] MEDS ORDERED: Dextrose Gel 15 GM/37.5 ML TUBE PO PRN ×2 (18:58)
[2021-05-16] MEDS ORDERED: D5% in Water 1,000 ML IVC PRN (18:58)
[2021-05-16] MEDS ORDERED: *HR* Dextrose 50 % in Water (Syg) 50 ML SYRINGE IVP PRN (18:58)
[2021-05-16] MEDS ORDERED: Bisacodyl 10 MG RECTAL SUPPOSITORY RC PRN (19:00)
[2021-05-16] MEDS ORDERED: hydrOXYzine pamoate 25 MG CAPSULE PO PRN (19:00)
[2021-05-16] MEDS ORDERED: ALPRAZolam 0.5 MG TABLET PO PRN (19:00)
[2021-05-16] MEDS: Gabapentin 300 MG CAPSULE PO SCH (20:21)
[2021-05-16] MEDS: Acetaminophen 325 MG TABLET PO PRN (20:22)
[2021-05-16] MEDS: *HR* Glimepiride 4 MG TABLET PO SCH (20:23)
[2021-05-16] MEDS: Nystatin POWDER 30 GM BOTTLE TP SCH (20:26)
[2021-05-16] MEDS: Insulin LISPRO 300 UNITS/3 ML VIAL SUBQ SCH (20:51)
[2021-05-16] MEDS ORDERED: Insulin DETEMIR 100 UNIT/ML per UNIT SUBQ ONE (21:00)
[2021-05-17] MEDS ORDERED: Insulin LISPRO 300 UNITS/3 ML VIAL SUBQ ONE (01:06)
[2021-05-17] MEDS: 0.9 % Sodium Chloride 1,000 ML IVC SCH ×4 (01:29→16:45)
[2021-05-17] MEDS: Ascorbic Acid 500 MG TABLET PO SCH (05:33)
[2021-05-17] MEDS: Levothyroxine 25 MCG TABLET PO SCH (05:33)
[2021-05-17 07:39] LABS: Basophils # 0.1 K/mcL (0.0-0.2); Basophils % 0.4 %; Eosinophils # 0.1 K/mcL (0.0-0.6); Eosinophils % 0.3 %; Hematocrit 34.8 % (35.3-44.9); Hemoglobin 11.3 g/dL (11.5-15.4); Immature Granulocytes % 2.2 % (0-4); Lymphocytes # 2.6 K/mcL (0.6-4.6); Lymphocytes % 12.2 %; Mean Corpuscular HGB Conc 32.5 g/dL (31.6-35.5); Mean Corpuscular Hemoglobin 28.7 pg (28.0-33.3); Mean Corpuscular Volume 88.3 fL (83.0-100.0); Mean Platelet Volume 9.7 fL (9.4-12.4); Monocytes # 0.8 K/mcL (0.0-1.3); Monocytes % 3.9 %; Platelet Count 326 K/mcL (140-400); Red Blood Count 3.94 M/mcL (3.82-4.97); Red Cell Distribution Width 13.8 % (11.5-14.5); White Blood Count 21.2 K/mcL (4.3-11.1)
[2021-05-17 07:45] LABS: Neutrophils # 17.2 K/mcL (1.6-8.9)
[2021-05-17 08:23] LABS: Magnesium 1.9 mg/dL (1.6-2.6); Potassium 4.2 mEq/L (3.5-5.1)
[2021-05-17] MEDS ORDERED: cefTRIAXone 2,000 MG in 0.9 % Sodium Chloride Mini Bag 100 ML IVPB SCH (09:00)
[2021-05-17] MEDS: Zinc Sulfate 220 MG CAPSULE PO SCH (09:54)
[2021-05-17] MEDS: Acetaminophen 325 MG TABLET PO PRN (09:54)
[2021-05-17] MEDS: Magnesium Oxide 400 MG TABLET PO SCH (09:54)
[2021-05-17] MEDS: Cholecalciferol (D-3) 1,000 UNIT (25MCG) TABLET PO SCH (09:54)
[2021-05-17] MEDS: Cyanocobalamin (B-12) 1,000 MCG TABLET PO SCH (09:54)
[2021-05-17] MEDS: Insulin LISPRO 300 UNITS/3 ML VIAL SUBQ SCH ×4 (09:55→22:16)
[2021-05-17] MEDS: polyethylene glycoL 3350 17 GM POWD.PACK PO SCH (09:55)
[2021-05-17] MEDS: Nystatin POWDER 30 GM BOTTLE TP SCH ×3 (09:56→22:18)
[2021-05-17] MEDS: *HR* Heparin 5,000 UNIT/ML VIAL SQ SCH (18:13)
[2021-05-17] MEDS: *HR* Glimepiride 4 MG TABLET PO SCH (22:15)
[2021-05-17] MEDS: Gabapentin 300 MG CAPSULE PO SCH (22:15)
[2021-05-18] MEDS: Acetaminophen 325 MG TABLET PO PRN ×2 (06:33→20:50)
[2021-05-18] MEDS: Ascorbic Acid 500 MG TABLET PO SCH (06:33)
[2021-05-18] MEDS: Levothyroxine 25 MCG TABLET PO SCH (06:33)
[2021-05-18] MEDS: *HR* Heparin 5,000 UNIT/ML VIAL SQ SCH ×2 (06:35→17:33)
[2021-05-18 08:54] LABS: Basophils # 0.1 K/mcL (0.0-0.2); Basophils % 0.5 %; Eosinophils # 0.1 K/mcL (0.0-0.6); Eosinophils % 0.4 %; Hematocrit 36.6 % (35.3-44.9); Immature Granulocytes % 1.6 % (0-4); Lymphocytes # 2.7 K/mcL (0.6-4.6); Lymphocytes % 15.6 %; Mean Corpuscular HGB Conc 32.8 g/dL (31.6-35.5); Mean Corpuscular Hemoglobin 28.6 pg (28.0-33.3); Mean Corpuscular Volume 87.4 fL (83.0-100.0); Mean Platelet Volume 9.6 fL (9.4-12.4); Monocytes # 0.9 K/mcL (0.0-1.3); Monocytes % 5.4 %; Neutrophils # 13.2 K/mcL (1.6-8.9); Platelet Count 369 K/mcL (140-400); Red Blood Count 4.19 M/mcL (3.82-4.97); Red Cell Distribution Width 13.7 % (11.5-14.5); Segmented Neutrophils % 76.5 %; White Blood Count 17.2 K/mcL (4.3-11.1)
[2021-05-18] MEDS: Zinc Sulfate 220 MG CAPSULE PO SCH (09:10)
[2021-05-18] MEDS: Amoxicillin/Clavulanate 500 MG TABLET PO SCH ×2 (09:10→17:42)
[2021-05-18] MEDS: Magnesium Oxide 400 MG TABLET PO SCH (09:10)
[2021-05-18] MEDS: Cholecalciferol (D-3) 1,000 UNIT (25MCG) TABLET PO SCH (09:11)
[2021-05-18] MEDS: Cyanocobalamin (B-12) 1,000 MCG TABLET PO SCH (09:11)
[2021-05-18 09:14] LABS: Calcium 8.8 mg/dL (8.6-10.3); Potassium 4.7 mEq/L (3.5-5.1)
[2021-05-18] MEDS: Insulin LISPRO 300 UNITS/3 ML VIAL SUBQ SCH ×4 (09:18→20:53)
[2021-05-18] MEDS: polyethylene glycoL 3350 17 GM POWD.PACK PO SCH (09:19)
[2021-05-18] MEDS: Nystatin POWDER 30 GM BOTTLE TP SCH ×3 (09:19→23:07)
[2021-05-18] MEDS: 0.9 % Sodium Chloride 1,000 ML IVC SCH (12:37)
[2021-05-18] MEDS: Gabapentin 300 MG CAPSULE PO SCH (20:50)
[2021-05-18] MEDS: *HR* Glimepiride 4 MG TABLET PO SCH (20:51)
[2021-05-19] MEDS: *HR* Heparin 5,000 UNIT/ML VIAL SQ SCH (06:07)
[2021-05-19] MEDS: Ascorbic Acid 500 MG TABLET PO SCH (06:07)
[2021-05-19] MEDS: Levothyroxine 25 MCG TABLET PO SCH (06:07)
[2021-05-19 07:34] VITALS: BP 132/91; PULSE 96; RESP 19; TEMP 97.5; O2SAT 95
[2021-05-19] MEDS: Magnesium Oxide 400 MG TABLET PO SCH (08:42)
[2021-05-19] MEDS: Cyanocobalamin (B-12) 1,000 MCG TABLET PO SCH (08:42)
[2021-05-19] MEDS: Cholecalciferol (D-3) 1,000 UNIT (25MCG) TABLET PO SCH (08:43)
[2021-05-19] MEDS: Nystatin POWDER 30 GM BOTTLE TP SCH (08:43)
[2021-05-19] MEDS: Amoxicillin/Clavulanate 500 MG TABLET PO SCH (08:44)
[2021-05-19] MEDS: polyethylene glycoL 3350 17 GM POWD.PACK PO SCH (08:44)
[2021-05-19] MEDS: Insulin LISPRO 300 UNITS/3 ML VIAL SUBQ SCH ×2 (08:51→11:20)
[2021-05-19] MEDS ORDERED: Doxycycline 100 MG CAPSULE PO SCH (09:00)
[2021-05-19] MEDS ORDERED: Insulin DETEMIR 100 UNIT/ML X5UNITS SUBQ SCH (09:00)
[2021-05-19] MEDS ORDERED: Zinc Sulfate 220 MG CAPSULE PO SCH (09:00)
== END 2021-05-19 12:12 | disposition other institution (70) | DRG 871 ==
LOC: EMEROOPIK 12:58 → INPPIK 12:58
PROVIDERS: ADMIT Family Medicine; ATTEND Family Medicine

== ENCOUNTER 2021-05-18 17:38 | Inpatient (IN) ==
[2021-05-19] MEDS ORDERED: *HR* Dextrose 50 % in Water (Syg) 50 ML SYRINGE IVP PRN (08:07)
[2021-05-19] MEDS ORDERED: D5% in Water 1,000 ML IVC PRN (08:07)
[2021-05-19] MEDS ORDERED: Dextrose Gel 15 GM/37.5 ML TUBE PO PRN ×2 (08:07)
[2021-05-19] MEDS ORDERED: ALPRAZolam 0.5 MG TABLET PO PRN (08:53)
[2021-05-19] MEDS ORDERED: Bisacodyl 10 MG RECTAL SUPPOSITORY RC PRN (08:53)
[2021-05-19] MEDS ORDERED: hydrOXYzine pamoate 25 MG CAPSULE PO PRN (08:53)
[2021-05-19] MEDS: Nystatin POWDER 30 GM BOTTLE TP SCH ×2 (15:04→22:27)
[2021-05-19] MEDS: Insulin LISPRO 300 UNITS/3 ML VIAL SUBQ SCH ×2 (16:37→22:35)
[2021-05-19] MEDS: Amoxicillin/Clavulanate 500 MG TABLET PO SCH (16:39)
[2021-05-19] MEDS: cloNIDine HCL 0.1 MG TABLET PO SCH (22:27)
[2021-05-19] MEDS: Doxycycline 100 MG CAPSULE PO SCH (22:27)
[2021-05-19] MEDS: Gabapentin 300 MG CAPSULE PO SCH (22:28)
[2021-05-19] MEDS: *HR* Glimepiride 4 MG TABLET PO SCH (22:28)
[2021-05-19] MEDS: Losartan/HCTZ 50-12.5 TABLET PO SCH (22:28)
[2021-05-19] MEDS: Insulin DETEMIR 100 UNIT/ML X5UNITS SUBQ SCH (22:34)
[2021-05-19] MEDS: *HR* Heparin 5,000 UNIT/ML VIAL SQ SCH (23:10)
[2021-05-20 06:35] LABS: Basophils # 0.1 K/mcL (0.0-0.2); Basophils % 1.1 %; Eosinophils # 0.1 K/mcL (0.0-0.6); Hematocrit 34.1 % (35.3-44.9); Hemoglobin 10.9 g/dL (11.5-15.4); Immature Granulocytes % 4.7 % (0-4); Lymphocytes # 1.8 K/mcL (0.6-4.6); Lymphocytes % 16.8 %; Mean Corpuscular Hemoglobin 28.2 pg (28.0-33.3); Mean Corpuscular Volume 88.3 fL (83.0-100.0); Mean Platelet Volume 9.6 fL (9.4-12.4); Monocytes # 0.8 K/mcL (0.0-1.3); Monocytes % 7.1 %; Neutrophils # 7.4 K/mcL (1.6-8.9); Platelet Count 371 K/mcL (140-400); Red Blood Count 3.86 M/mcL (3.82-4.97); Red Cell Distribution Width 13.8 % (11.5-14.5); Segmented Neutrophils % 69.3 %; White Blood Count 10.6 K/mcL (4.3-11.1)
[2021-05-20] MEDS: *HR* Heparin 5,000 UNIT/ML VIAL SQ SCH ×2 (06:59→18:03)
[2021-05-20] MEDS: Zinc Sulfate 220 MG CAPSULE PO SCH (07:00)
[2021-05-20] MEDS: Levothyroxine 25 MCG TABLET PO SCH (07:00)
[2021-05-20] MEDS: Ascorbic Acid 500 MG TABLET PO SCH (07:00)
[2021-05-20 07:06] LABS: Potassium 4.4 mEq/L (3.5-5.1)
[2021-05-20] MEDS: Doxycycline 100 MG CAPSULE PO SCH ×2 (08:40→21:21)
[2021-05-20] MEDS: Magnesium Oxide 400 MG TABLET PO SCH (08:40)
[2021-05-20] MEDS: cloNIDine HCL 0.1 MG TABLET PO SCH ×2 (08:40→21:21)
[2021-05-20] MEDS: Amoxicillin/Clavulanate 500 MG TABLET PO SCH ×2 (08:40→16:42)
[2021-05-20] MEDS: Metoprolol XL (24 HR) Succ 50 MG TAB.ER.24H PO SCH (08:40)
[2021-05-20] MEDS: Cholecalciferol (D-3) 1,000 UNIT (25MCG) TABLET PO SCH (08:40)
[2021-05-20] MEDS: Losartan/HCTZ 50-12.5 TABLET PO SCH ×2 (08:40→21:21)
[2021-05-20] MEDS: Insulin LISPRO 300 UNITS/3 ML VIAL SUBQ SCH ×4 (08:41→21:22)
[2021-05-20] MEDS: Insulin DETEMIR 100 UNIT/ML X5UNITS SUBQ SCH ×2 (08:41→21:21)
[2021-05-20] MEDS: Nystatin POWDER 30 GM BOTTLE TP SCH ×3 (08:43→21:23)
[2021-05-20] MEDS: Cyanocobalamin (B-12) 1,000 MCG TABLET PO SCH (12:19)
[2021-05-20] MEDS ORDERED: Ipratropium/Albuterol Neb 3 ML IH PRN (12:34)
[2021-05-20] MEDS: GuaiFENesin/Pseudophedrine TABLET PO SCH ×2 (14:46→21:29)
[2021-05-20] MEDS: *HR* Glimepiride 4 MG TABLET PO SCH (21:21)
[2021-05-20] MEDS: Gabapentin 300 MG CAPSULE PO SCH (21:21)
[2021-05-21] MEDS: *HR* Heparin 5,000 UNIT/ML VIAL SQ SCH ×2 (06:23→18:15)
[2021-05-21] MEDS: Levothyroxine 25 MCG TABLET PO SCH (06:23)
[2021-05-21] MEDS: Zinc Sulfate 220 MG CAPSULE PO SCH (06:23)
[2021-05-21] MEDS: Ascorbic Acid 500 MG TABLET PO SCH (06:23)
[2021-05-21] MEDS: Insulin LISPRO 300 UNITS/3 ML VIAL SUBQ SCH ×4 (08:02→21:57)
[2021-05-21] MEDS: Losartan/HCTZ 50-12.5 TABLET PO SCH ×2 (08:03→19:55)
[2021-05-21] MEDS: Doxycycline 100 MG CAPSULE PO SCH (08:03)
[2021-05-21] MEDS: Cyanocobalamin (B-12) 1,000 MCG TABLET PO SCH (08:04)
[2021-05-21] MEDS: Magnesium Oxide 400 MG TABLET PO SCH (08:04)
[2021-05-21] MEDS: Metoprolol XL (24 HR) Succ 50 MG TAB.ER.24H PO SCH (08:04)
[2021-05-21] MEDS: Cholecalciferol (D-3) 1,000 UNIT (25MCG) TABLET PO SCH (08:04)
[2021-05-21] MEDS: cloNIDine HCL 0.1 MG TABLET PO SCH ×2 (08:04→19:54)
[2021-05-21] MEDS: Amoxicillin/Clavulanate 500 MG TABLET PO SCH (08:09)
[2021-05-21] MEDS: GuaiFENesin/Pseudophedrine TABLET PO SCH ×2 (08:09→22:01)
[2021-05-21] MEDS: Nystatin POWDER 30 GM BOTTLE TP SCH ×3 (08:09→22:01)
[2021-05-21] MEDS: Insulin DETEMIR 100 UNIT/ML X5UNITS SUBQ SCH ×2 (10:35→21:59)
[2021-05-21 14:01] LABS: Basophils # 0.1 K/mcL (0.0-0.2); Basophils % 0.3 %; Eosinophils # 0.1 K/mcL (0.0-0.6); Eosinophils % 0.6 %; Hematocrit 38.3 % (35.3-44.9); Immature Granulocytes % 10.1 % (0-4); Lymphocytes # 2.8 K/mcL (0.6-4.6); Lymphocytes % 16.4 %; Mean Corpuscular HGB Conc 31.3 g/dL (31.6-35.5); Mean Corpuscular Hemoglobin 28.5 pg (28.0-33.3); Mean Platelet Volume 10.2 fL (9.4-12.4); Monocytes # 1.4 K/mcL (0.0-1.3); Monocytes % 8.2 %; Nucleated Red Blood Cells 0.2 /100 WBC (0); Platelet Count 287 K/mcL (140-400); Red Blood Count 4.21 M/mcL (3.82-4.97); Red Cell Distribution Width 14.2 % (11.5-14.5); Segmented Neutrophils % 64.4 %; White Blood Count 17.2 K/mcL (4.3-11.1)
[2021-05-21 14:04] LABS: Neutrophils # 11.1 K/mcL (1.6-8.9)
[2021-05-21 14:21] LABS: Albumin 3.3 g/dL (3.5-5.7); Albumin/Globulin Ratio 0.9 (1.1-2.2); Bilirubin,Total 0.4 mg/dL (0.3-1.0); Calcium 9.2 mg/dL (8.6-10.3); Globulin 3.5 g/dL (2.4-3.5); Magnesium 1.6 mg/dL (1.6-2.6); Potassium 4.6 mEq/L (3.5-5.1); Total Protein 6.8 g/dL (6.4-8.9)
[2021-05-21 14:25] LABS: Platelet Estimate Normal (Normal)
[2021-05-21] MEDS ORDERED: Furosemide 40 MG/4 ML VIAL IVP ONE (16:15)
[2021-05-21] MEDS ORDERED: Dexamethasone Sodium Phos/PF 10 MG/ML VIAL IVP ONE (16:37)
[2021-05-21] MEDS: Acetaminophen 325 MG TABLET PO PRN (17:06)
[2021-05-21] MEDS: Piperacillin/Tazobactam 3.375 GM in 0.9 % Sodium Chloride Mini Bag 100 ML IVPB SCH (18:15)
[2021-05-21 19:00] LABS: Adenovirus Not Detected (Not Detect); Coronavirus 229E Not Detected (Not Detect); Coronavirus HKU1 Not Detected (Not Detect); Coronavirus NL63 Not Detected (Not Detect); Coronavirus OC43 Not Detected (Not Detect)
[2021-05-21 19:02] LABS: Human Metapneumovirus Not Detected (Not Detect); Human Rhinovirus/Enterovirus Not Detected (Not Detect); SARS-CoV-2 DETECTED (Not Detect)
[2021-05-21 19:03] LABS: Bordetella Pertussis Not Detected (Not Detect); Chlamydophila pneumoniae Not Detected (Not Detect); Influenza A Subtype 2009 H1 Not Detected (Not Detect); Influenza B Not Detected (Not Detect); Mycoplasma pneumoniae Not Detected (Not Detect); Parainfluenza Virus 1 Not Detected (Not Detect); Parainfluenza Virus 2 Not Detected (Not Detect); Parainfluenza Virus 3 Not Detected (Not Detect); Parainfluenza Virus 4 Not Detected (Not Detect); Respiratory Syncytial Virus Not Detected (Not Detect)
[2021-05-21] MEDS: *HR* Glimepiride 4 MG TABLET PO SCH (19:54)
[2021-05-21] MEDS: Gabapentin 300 MG CAPSULE PO SCH (19:54)
[2021-05-22] MEDS: Piperacillin/Tazobactam 3.375 GM in 0.9 % Sodium Chloride Mini Bag 100 ML IVPB SCH ×3 (01:18→16:28)
[2021-05-22] MEDS: Ascorbic Acid 500 MG TABLET PO SCH (05:06)
[2021-05-22] MEDS: *HR* Heparin 5,000 UNIT/ML VIAL SQ SCH ×2 (05:06→16:25)
[2021-05-22] MEDS: Zinc Sulfate 220 MG CAPSULE PO SCH (05:07)
[2021-05-22] MEDS: Levothyroxine 25 MCG TABLET PO SCH (05:07)
[2021-05-22] MEDS: Insulin LISPRO 300 UNITS/3 ML VIAL SUBQ SCH ×4 (07:45→20:52)
[2021-05-22 07:46] LABS: Hematocrit 36.3 % (35.3-44.9); Hemoglobin 11.4 g/dL (11.5-15.4); Mean Corpuscular HGB Conc 31.4 g/dL (31.6-35.5); Mean Corpuscular Hemoglobin 28.3 pg (28.0-33.3); Mean Corpuscular Volume 90.1 fL (83.0-100.0); Mean Platelet Volume 9.7 fL (9.4-12.4); Monocytes # 0.7 K/mcL (0.0-1.3); Platelet Count 364 K/mcL (140-400); Red Blood Count 4.03 M/mcL (3.82-4.97); White Blood Count 17.3 K/mcL (4.3-11.1)
[2021-05-22 08:04] LABS: Albumin 2.9 g/dL (3.5-5.7); Albumin/Globulin Ratio 0.8 (1.1-2.2); Bilirubin,Total 0.4 mg/dL (0.3-1.0); Calcium 8.7 mg/dL (8.6-10.3); Globulin 3.6 g/dL (2.4-3.5); Total Protein 6.5 g/dL (6.4-8.9)
[2021-05-22] MEDS ORDERED: Insulin LISPRO 300 UNITS/3 ML VIAL SUBQ ONE (08:55)
[2021-05-22 08:59] LABS: Lymphocytes # 1.7 K/mcL (0.6-4.6); Neutrophils # 14.9 K/mcL (1.6-8.9); Platelet Estimate Normal (Normal)
[2021-05-22] MEDS: cloNIDine HCL 0.1 MG TABLET PO SCH ×2 (09:09→20:41)
[2021-05-22] MEDS: Insulin DETEMIR 100 UNIT/ML X5UNITS SUBQ SCH ×2 (09:09→20:44)
[2021-05-22] MEDS: Magnesium Oxide 400 MG TABLET PO SCH (09:09)
[2021-05-22] MEDS: Cholecalciferol (D-3) 1,000 UNIT (25MCG) TABLET PO SCH (09:10)
[2021-05-22] MEDS: Cyanocobalamin (B-12) 1,000 MCG TABLET PO SCH (09:10)
[2021-05-22] MEDS: GuaiFENesin/Pseudophedrine TABLET PO SCH ×2 (09:10→20:55)
[2021-05-22] MEDS: Nystatin POWDER 30 GM BOTTLE TP SCH ×3 (09:10→20:56)
[2021-05-22] MEDS: Losartan/HCTZ 50-12.5 TABLET PO SCH ×2 (09:10→20:40)
[2021-05-22] MEDS ORDERED: Dexamethasone Sodium Phos/PF 10 MG/ML VIAL IVP ONE (16:15)
[2021-05-22] MEDS: Dexamethasone Sodium Phos/PF 10 MG/ML VIAL IVP SCH (16:33)
[2021-05-22] MEDS: Acetaminophen 325 MG TABLET PO PRN (20:40)
[2021-05-22] MEDS: Gabapentin 300 MG CAPSULE PO SCH (20:40)
[2021-05-22] MEDS: *HR* Glimepiride 4 MG TABLET PO SCH (20:40)
[2021-05-22] MEDS: Budesonide/Formoterol 160/4.5 1 PUFF INH IH SCH (22:17)
[2021-05-23] MEDS: Piperacillin/Tazobactam 3.375 GM in 0.9 % Sodium Chloride Mini Bag 100 ML IVPB SCH ×3 (01:05→16:55)
[2021-05-23] MEDS: Levothyroxine 25 MCG TABLET PO SCH (05:20)
[2021-05-23] MEDS: Zinc Sulfate 220 MG CAPSULE PO SCH (05:20)
[2021-05-23] MEDS: Ascorbic Acid 500 MG TABLET PO SCH (05:20)
[2021-05-23] MEDS: *HR* Heparin 5,000 UNIT/ML VIAL SQ SCH ×2 (05:20→16:54)
[2021-05-23 08:49] LABS: Hematocrit 34.3 % (35.3-44.9); Hemoglobin 11.2 g/dL (11.5-15.4); Mean Corpuscular HGB Conc 32.7 g/dL (31.6-35.5); Mean Corpuscular Hemoglobin 28.6 pg (28.0-33.3); Mean Corpuscular Volume 87.5 fL (83.0-100.0); Mean Platelet Volume 9.7 fL (9.4-12.4); Nucleated Red Blood Cells 0.1 /100 WBC (0); Platelet Count 408 K/mcL (140-400); Red Blood Count 3.92 M/mcL (3.82-4.97); Red Cell Distribution Width 13.7 % (11.5-14.5); White Blood Count 16.3 K/mcL (4.3-11.1)
[2021-05-23 09:07] LABS: Calcium 8.7 mg/dL (8.6-10.3); Potassium 4.7 mEq/L (3.5-5.1)
[2021-05-23] MEDS: Dexamethasone Sodium Phos/PF 10 MG/ML VIAL IVP SCH (09:23)
[2021-05-23] MEDS: Insulin DETEMIR 100 UNIT/ML X5UNITS SUBQ SCH ×2 (09:23→21:37)
[2021-05-23] MEDS: Losartan/HCTZ 50-12.5 TABLET PO SCH ×2 (09:24→21:36)
[2021-05-23] MEDS: Cyanocobalamin (B-12) 1,000 MCG TABLET PO SCH (09:24)
[2021-05-23] MEDS: Insulin LISPRO 300 UNITS/3 ML VIAL SUBQ SCH ×4 (09:24→21:35)
[2021-05-23] MEDS: Nystatin POWDER 30 GM BOTTLE TP SCH ×3 (09:25→21:45)
[2021-05-23] MEDS: cloNIDine HCL 0.1 MG TABLET PO SCH ×2 (09:25→21:36)
[2021-05-23] MEDS: Cholecalciferol (D-3) 1,000 UNIT (25MCG) TABLET PO SCH (09:25)
[2021-05-23] MEDS: Magnesium Oxide 400 MG TABLET PO SCH (09:25)
[2021-05-23] MEDS: GuaiFENesin/Pseudophedrine TABLET PO SCH ×2 (09:25→21:42)
[2021-05-23 09:49] LABS: Neutrophils # 15.3 K/mcL (1.6-8.9); Platelet Estimate Normal (Normal)
[2021-05-23] MEDS: Budesonide/Formoterol 160/4.5 1 PUFF INH IH SCH ×2 (10:38→21:57)
[2021-05-23] MEDS: Gabapentin 300 MG CAPSULE PO SCH (21:36)
[2021-05-23] MEDS: *HR* Glimepiride 4 MG TABLET PO SCH (21:38)
[2021-05-24] MEDS: Piperacillin/Tazobactam 3.375 GM in 0.9 % Sodium Chloride Mini Bag 100 ML IVPB SCH ×3 (01:50→16:44)
[2021-05-24] MEDS: Levothyroxine 25 MCG TABLET PO SCH (05:55)
[2021-05-24] MEDS: Ascorbic Acid 500 MG TABLET PO SCH (05:56)
[2021-05-24] MEDS: Zinc Sulfate 220 MG CAPSULE PO SCH (05:56)
[2021-05-24] MEDS: *HR* Heparin 5,000 UNIT/ML VIAL SQ SCH ×2 (05:56→16:45)
[2021-05-24 07:19] LABS: Hematocrit 39.4 % (35.3-44.9); Hemoglobin 12.9 g/dL (11.5-15.4); Mean Corpuscular HGB Conc 32.7 g/dL (31.6-35.5); Mean Corpuscular Hemoglobin 28.5 pg (28.0-33.3); Mean Platelet Volume 9.3 fL (9.4-12.4); Nucleated Red Blood Cells 0.3 /100 WBC (0); Platelet Count 477 K/mcL (140-400); Red Blood Count 4.53 M/mcL (3.82-4.97); Red Cell Distribution Width 13.5 % (11.5-14.5); White Blood Count 15.5 K/mcL (4.3-11.1)
[2021-05-24 07:34] LABS: Calcium 9.3 mg/dL (8.6-10.3); Potassium 4.8 mEq/L (3.5-5.1)
[2021-05-24] MEDS: Budesonide/Formoterol 160/4.5 1 PUFF INH IH SCH ×2 (09:04→21:19)
[2021-05-24] MEDS: Insulin DETEMIR 100 UNIT/ML X5UNITS SUBQ SCH ×2 (09:34→21:12)
[2021-05-24] MEDS: Insulin LISPRO 300 UNITS/3 ML VIAL SUBQ SCH ×4 (09:34→21:13)
[2021-05-24] MEDS: Dexamethasone Sodium Phos/PF 10 MG/ML VIAL IVP SCH (10:44)
[2021-05-24] MEDS: Magnesium Oxide 400 MG TABLET PO SCH (10:48)
[2021-05-24] MEDS: Cyanocobalamin (B-12) 1,000 MCG TABLET PO SCH (10:49)
[2021-05-24] MEDS: Losartan/HCTZ 50-12.5 TABLET PO SCH ×2 (10:49→21:11)
[2021-05-24] MEDS: Cholecalciferol (D-3) 1,000 UNIT (25MCG) TABLET PO SCH (10:49)
[2021-05-24] MEDS: GuaiFENesin/Pseudophedrine TABLET PO SCH (10:49)
[2021-05-24] MEDS: cloNIDine HCL 0.1 MG TABLET PO SCH ×2 (10:50→21:11)
[2021-05-24] MEDS: Nystatin POWDER 30 GM BOTTLE TP SCH ×3 (10:50→21:14)
[2021-05-24 11:21] LABS: Lymphocytes # 1.2 K/mcL (0.6-4.6); Monocytes # 0.3 K/mcL (0.0-1.3)
[2021-05-24 11:22] LABS: Platelet Estimate Increased (Normal)
[2021-05-24] MEDS ORDERED: Sennosides 8.6 MG TABLET PO PRN (14:03)
[2021-05-24] MEDS: Acetaminophen 325 MG TABLET PO PRN (16:53)
[2021-05-24] MEDS: Gabapentin 300 MG CAPSULE PO SCH (21:10)
[2021-05-24] MEDS: *HR* Glimepiride 4 MG TABLET PO SCH (21:11)
[2021-05-25] MEDS: Piperacillin/Tazobactam 3.375 GM in 0.9 % Sodium Chloride Mini Bag 100 ML IVPB SCH ×2 (01:22→10:23)
[2021-05-25] MEDS: Zinc Sulfate 220 MG CAPSULE PO SCH (06:55)
[2021-05-25] MEDS: *HR* Heparin 5,000 UNIT/ML VIAL SQ SCH (06:55)
[2021-05-25] MEDS: Ascorbic Acid 500 MG TABLET PO SCH (06:55)
[2021-05-25] MEDS: Levothyroxine 25 MCG TABLET PO SCH (06:55)
[2021-05-25] MEDS: Budesonide/Formoterol 160/4.5 1 PUFF INH IH SCH (08:46)
[2021-05-25] MEDS ORDERED: 0.9 % Sodium Chloride 1,000 ML ONE (09:35)
[2021-05-25] MEDS ORDERED: *HR* Metoprolol 5 MG/5 ML VIAL IVP ONE ×2 (09:35→09:50)
[2021-05-25] MEDS ORDERED: 0.9 % Sodium Chloride 500 ML IVC ONE ×2 (09:36→11:28)
[2021-05-25 09:50] LABS: ABG Base Excess -1 mEq/L (-2 to 3); ABG HCO3 20 mEq/L (21-27); ABG Oxygen Saturation 89 % (95-98); ABG PCO2 24 mmHg (35-45); ABG PH 7.53 pH Units (7.32-7.45); ABG PO2 49 mmHg (85-104); ABG TCO2 21 mEq/L (20-26)
[2021-05-25 10:22] LABS: Basophils # 0.1 K/mcL (0.0-0.2); Basophils % 0.7 %; Eosinophils % 0.1 %; Hemoglobin 13.2 g/dL (11.5-15.4); Immature Granulocytes % 3.3 % (0-4); Lymphocytes # 2.8 K/mcL (0.6-4.6); Lymphocytes % 14.7 %; Mean Corpuscular Hemoglobin 28.4 pg (28.0-33.3); Mean Corpuscular Volume 86.2 fL (83.0-100.0); Mean Platelet Volume 9.4 fL (9.4-12.4); Monocytes # 0.7 K/mcL (0.0-1.3); Monocytes % 3.4 %; Neutrophils # 14.9 K/mcL (1.6-8.9); Nucleated Red Blood Cells 0.2 /100 WBC (0); Platelet Count 466 K/mcL (140-400); Red Blood Count 4.64 M/mcL (3.82-4.97); Red Cell Distribution Width 13.9 % (11.5-14.5); Segmented Neutrophils % 77.8 %; White Blood Count 19.2 K/mcL (4.3-11.1)
[2021-05-25] MEDS: cloNIDine HCL 0.1 MG TABLET PO SCH (10:28)
[2021-05-25] MEDS: Magnesium Oxide 400 MG TABLET PO SCH (10:31)
[2021-05-25] MEDS: Losartan/HCTZ 50-12.5 TABLET PO SCH (10:31)
[2021-05-25] MEDS: Cyanocobalamin (B-12) 1,000 MCG TABLET PO SCH (10:32)
[2021-05-25] MEDS: Cholecalciferol (D-3) 1,000 UNIT (25MCG) TABLET PO SCH (10:32)
[2021-05-25] MEDS: Insulin LISPRO 300 UNITS/3 ML VIAL SUBQ SCH ×3 (10:38→16:35)
[2021-05-25] MEDS: Dexamethasone Sodium Phos/PF 10 MG/ML VIAL IVP SCH (10:38)
[2021-05-25] MEDS: Insulin DETEMIR 100 UNIT/ML X5UNITS SUBQ SCH (10:40)
[2021-05-25 10:41] LABS: Potassium 4.5 mEq/L (3.5-5.1)
[2021-05-25] MEDS: Nystatin POWDER 30 GM BOTTLE TP SCH ×2 (10:41→16:36)
[2021-05-25 16:35] VITALS: BP 127/83; PULSE 105; RESP 16; TEMP 98.1; O2SAT 92
== END 2021-05-25 18:00 | disposition short-term general hospital (02) | DRG 871 ==
LOC: INPPIK 05-19 12:23
PROVIDERS: ADMIT Family Medicine; ATTEND Family Medicine

== ENCOUNTER 2021-06-04 16:06 | Inpatient (IN) ==
[2021-06-04] MEDS ORDERED: Ipratropium 1 PUFF INHALER IH PRN (21:08)
[2021-06-04] MEDS ORDERED: Dextrose Gel 15 GM/37.5 ML TUBE PO PRN ×2 (21:10)
[2021-06-04] MEDS ORDERED: *HR* Dextrose 50 % in Water (Syg) 50 ML SYRINGE IVP PRN (21:10)
[2021-06-04] MEDS ORDERED: D5% in Water 1,000 ML IVC PRN (21:10)
[2021-06-04] MEDS: Gabapentin 300 MG CAPSULE PO SCH (21:30)
[2021-06-04] MEDS: Acetaminophen 325 MG TABLET PO PRN (21:34)
[2021-06-04] MEDS: levoFLOXacin 750 MG TABLET PO SCH (21:35)
[2021-06-05] MEDS: Ondansetron 4 MG/2 ML VIAL IVP PRN ×2 (00:07→10:34)
[2021-06-05] MEDS ORDERED: Metoclopramide 10 MG/2 ML VIAL IVP ONE (02:40)
[2021-06-05 08:27] LABS: Calcium 8.5 mg/dL (8.6-10.3); Potassium 4.4 mEq/L (3.5-5.1)
[2021-06-05 09:34] LABS: Red Blood Count 3.96 M/mcL (3.82-4.97); White Blood Count 21.3 K/mcL (4.3-11.1)
[2021-06-05 09:35] LABS: Hemoglobin 11.2 g/dL (11.5-15.4); Mean Corpuscular Hemoglobin 28.3 pg (28.0-33.3); Mean Corpuscular Volume 88.4 fL (83.0-100.0); Mean Platelet Volume 10.1 fL (9.4-12.4); Platelet Count 497 K/mcL (140-400); Red Cell Distribution Width 14.3 % (11.5-14.5)
[2021-06-05 09:36] LABS: Eosinophils # 0.2 K/mcL (0.0-0.6); Lymphocytes # 3.1 K/mcL (0.6-4.6); Monocytes # 1.7 K/mcL (0.0-1.3); Neutrophils # 14.9 K/mcL (1.6-8.9)
[2021-06-05 09:37] LABS: Basophils % 0.2 %; Eosinophils % 0.9 %; Immature Granulocytes % 6.5 % (0-4); Lymphocytes % 14.5 %; Monocytes % 7.9 %
[2021-06-05] MEDS: dexAMETHasone 4 MG TABLET PO SCH (09:59)
[2021-06-05] MEDS: Losartan/HCTZ 50-12.5 TABLET PO SCH (09:59)
[2021-06-05] MEDS: *HR* Glimepiride 4 MG TABLET PO SCH (10:00)
[2021-06-05] MEDS: cloNIDine HCL 0.1 MG TABLET PO SCH ×2 (10:00→20:36)
[2021-06-05] MEDS: Metoprolol XL (24 HR) Succ 50 MG TAB.ER.24H PO SCH (10:00)
[2021-06-05] MEDS: Insulin DETEMIR 100 UNIT/ML X5UNITS SUBQ SCH ×2 (10:00→20:35)
[2021-06-05] MEDS: Levothyroxine 25 MCG TABLET PO SCH (10:00)
[2021-06-05] MEDS: *HR* Enoxaparin 40 MG/0.4 ML SYRINGE SQ SCH (10:04)
[2021-06-05] MEDS: Insulin LISPRO 300 UNITS/3 ML VIAL SUBQ SCH ×3 (10:05→17:20)
[2021-06-05 10:31] LABS: Platelet Estimate Increased (Normal)
[2021-06-05] MEDS: Nystatin SUSP 5 ML UD.LIQ PO SCH ×2 (18:22→20:35)
[2021-06-05] MEDS: Gabapentin 300 MG CAPSULE PO SCH (20:36)
[2021-06-06] MEDS: Levothyroxine 25 MCG TABLET PO SCH (06:27)
[2021-06-06] MEDS: *HR* Enoxaparin 40 MG/0.4 ML SYRINGE SQ SCH (06:27)
[2021-06-06] MEDS: Insulin LISPRO 300 UNITS/3 ML VIAL SUBQ SCH ×3 (08:17→16:40)
[2021-06-06] MEDS: Insulin DETEMIR 100 UNIT/ML X5UNITS SUBQ SCH ×2 (08:21→20:43)
[2021-06-06] MEDS: Acetaminophen 325 MG TABLET PO PRN ×2 (11:06→20:43)
[2021-06-06] MEDS: cloNIDine HCL 0.1 MG TABLET PO SCH ×2 (14:01→20:38)
[2021-06-06] MEDS: Nystatin SUSP 5 ML UD.LIQ PO SCH ×4 (14:01→20:38)
[2021-06-06] MEDS: *HR* Glimepiride 4 MG TABLET PO SCH (14:02)
[2021-06-06] MEDS: Metoprolol XL (24 HR) Succ 50 MG TAB.ER.24H PO SCH (14:03)
[2021-06-06] MEDS: dexAMETHasone 4 MG TABLET PO SCH (14:03)
[2021-06-06] MEDS: Losartan/HCTZ 50-12.5 TABLET PO SCH (14:03)
[2021-06-06] MEDS: *HR* HYDROcodone/Acet 5/325 mg TABLET PO PRN (16:39)
[2021-06-06] MEDS: Gabapentin 300 MG CAPSULE PO SCH (20:38)
[2021-06-06] MEDS: levoFLOXacin 750 MG TABLET PO SCH (20:38)
[2021-06-06] MEDS: hydrOXYzine pamoate 25 MG CAPSULE PO PRN (20:38)
[2021-06-07] MEDS: *HR* Enoxaparin 40 MG/0.4 ML SYRINGE SQ SCH (06:04)
[2021-06-07] MEDS: Levothyroxine 25 MCG TABLET PO SCH (06:04)
[2021-06-07] MEDS: *HR* HYDROcodone/Acet 5/325 mg TABLET PO PRN ×2 (06:07→20:30)
[2021-06-07 07:02] LABS: Basophils # 0.1 K/mcL (0.0-0.2); Basophils % 0.6 %; Eosinophils # 0.2 K/mcL (0.0-0.6); Eosinophils % 1.1 %; Hematocrit 31.5 % (35.3-44.9); Hemoglobin 10.2 g/dL (11.5-15.4); Immature Granulocytes % 3.5 % (0-4); Lymphocytes # 2.4 K/mcL (0.6-4.6); Lymphocytes % 16.9 %; Mean Corpuscular HGB Conc 32.4 g/dL (31.6-35.5); Mean Corpuscular Hemoglobin 29.1 pg (28.0-33.3); Mean Corpuscular Volume 89.7 fL (83.0-100.0); Mean Platelet Volume 9.9 fL (9.4-12.4); Monocytes # 1.2 K/mcL (0.0-1.3); Monocytes % 8.6 %; Neutrophils # 9.8 K/mcL (1.6-8.9); Platelet Count 374 K/mcL (140-400); Red Blood Count 3.51 M/mcL (3.82-4.97); Red Cell Distribution Width 14.6 % (11.5-14.5); Segmented Neutrophils % 69.3 %; White Blood Count 14.2 K/mcL (4.3-11.1)
[2021-06-07 07:25] LABS: Calcium 8.6 mg/dL (8.6-10.3); Magnesium 1.9 mg/dL (1.6-2.6); Potassium 4.3 mEq/L (3.5-5.1)
[2021-06-07] MEDS: Insulin LISPRO 300 UNITS/3 ML VIAL SUBQ SCH ×4 (08:26→23:56)
[2021-06-07] MEDS: Losartan/HCTZ 50-12.5 TABLET PO SCH (10:19)
[2021-06-07] MEDS: Metoprolol XL (24 HR) Succ 50 MG TAB.ER.24H PO SCH (10:19)
[2021-06-07] MEDS: cloNIDine HCL 0.1 MG TABLET PO SCH ×2 (10:19→20:30)
[2021-06-07] MEDS: *HR* Glimepiride 4 MG TABLET PO SCH (10:19)
[2021-06-07] MEDS: dexAMETHasone 4 MG TABLET PO SCH (10:19)
[2021-06-07] MEDS: Nystatin SUSP 5 ML UD.LIQ PO SCH ×4 (10:23→20:31)
[2021-06-07] MEDS: Insulin DETEMIR 100 UNIT/ML X5UNITS SUBQ SCH ×2 (10:29→20:31)
[2021-06-07] MEDS: Gabapentin 300 MG CAPSULE PO SCH (20:30)
[2021-06-07] MEDS: hydrOXYzine pamoate 25 MG CAPSULE PO PRN (20:30)
[2021-06-08] MEDS: *HR* HYDROcodone/Acet 5/325 mg TABLET PO PRN ×3 (05:12→23:32)
[2021-06-08] MEDS: *HR* Enoxaparin 40 MG/0.4 ML SYRINGE SQ SCH (05:13)
[2021-06-08] MEDS: Levothyroxine 25 MCG TABLET PO SCH (05:13)
[2021-06-08] MEDS: Insulin LISPRO 300 UNITS/3 ML VIAL SUBQ SCH ×4 (05:14→16:51)
[2021-06-08] MEDS: Metoprolol XL (24 HR) Succ 50 MG TAB.ER.24H PO SCH (09:36)
[2021-06-08] MEDS: Losartan/HCTZ 50-12.5 TABLET PO SCH (09:36)
[2021-06-08] MEDS: dexAMETHasone 4 MG TABLET PO SCH (09:37)
[2021-06-08] MEDS: *HR* Glimepiride 4 MG TABLET PO SCH (09:37)
[2021-06-08] MEDS: Insulin DETEMIR 100 UNIT/ML X5UNITS SUBQ SCH ×2 (09:38→20:16)
[2021-06-08] MEDS: cloNIDine HCL 0.1 MG TABLET PO SCH ×2 (09:38→20:15)
[2021-06-08] MEDS: Nystatin SUSP 5 ML UD.LIQ PO SCH ×5 (09:39→20:23)
[2021-06-08] MEDS: Gabapentin 300 MG CAPSULE PO SCH (20:16)
[2021-06-08] MEDS: levoFLOXacin 750 MG TABLET PO SCH (22:07)
[2021-06-08] MEDS: hydrOXYzine pamoate 25 MG CAPSULE PO PRN (23:33)
[2021-06-09] MEDS: Insulin LISPRO 300 UNITS/3 ML VIAL SUBQ SCH ×4 (00:42→19:39)
[2021-06-09] MEDS: *HR* Enoxaparin 40 MG/0.4 ML SYRINGE SQ SCH (06:04)
[2021-06-09] MEDS: Levothyroxine 25 MCG TABLET PO SCH (06:04)
[2021-06-09] MEDS: Losartan/HCTZ 50-12.5 TABLET PO SCH (09:59)
[2021-06-09] MEDS: cloNIDine HCL 0.1 MG TABLET PO SCH ×2 (09:59→19:37)
[2021-06-09] MEDS: Insulin DETEMIR 100 UNIT/ML X5UNITS SUBQ SCH ×2 (10:00→19:38)
[2021-06-09] MEDS: Metoprolol XL (24 HR) Succ 50 MG TAB.ER.24H PO SCH (10:00)
[2021-06-09] MEDS: *HR* Glimepiride 4 MG TABLET PO SCH (10:00)
[2021-06-09] MEDS: dexAMETHasone 4 MG TABLET PO SCH (10:00)
[2021-06-09] MEDS: Nystatin SUSP 5 ML UD.LIQ PO SCH ×4 (10:03→19:40)
[2021-06-09] MEDS: Gabapentin 300 MG CAPSULE PO SCH (19:37)
[2021-06-09] MEDS: *HR* HYDROcodone/Acet 5/325 mg TABLET PO PRN (21:35)
[2021-06-10] MEDS: Insulin LISPRO 300 UNITS/3 ML VIAL SUBQ SCH ×5 (02:03→20:12)
[2021-06-10] MEDS: *HR* Enoxaparin 40 MG/0.4 ML SYRINGE SQ SCH (05:43)
[2021-06-10] MEDS: Levothyroxine 25 MCG TABLET PO SCH (05:43)
[2021-06-10] MEDS: Gabapentin 300 MG CAPSULE PO SCH ×2 (09:40→20:10)
[2021-06-10] MEDS: Metoprolol XL (24 HR) Succ 50 MG TAB.ER.24H PO SCH (09:40)
[2021-06-10] MEDS: cloNIDine HCL 0.1 MG TABLET PO SCH ×2 (09:40→20:10)
[2021-06-10] MEDS: *HR* Glimepiride 4 MG TABLET PO SCH (09:41)
[2021-06-10] MEDS: Losartan/HCTZ 50-12.5 TABLET PO SCH (09:41)
[2021-06-10] MEDS: Nystatin SUSP 5 ML UD.LIQ PO SCH ×2 (09:42→11:54)
[2021-06-10] MEDS: *HR* HYDROcodone/Acet 5/325 mg TABLET PO PRN ×2 (09:49→20:11)
[2021-06-10] MEDS: Insulin DETEMIR 100 UNIT/ML X5UNITS SUBQ SCH ×2 (09:51→20:12)
[2021-06-10] MEDS: levoFLOXacin 750 MG TABLET PO SCH (20:10)
[2021-06-11] MEDS: *HR* Enoxaparin 40 MG/0.4 ML SYRINGE SQ SCH (06:05)
[2021-06-11] MEDS: Levothyroxine 25 MCG TABLET PO SCH (06:05)
[2021-06-11] MEDS: Metoprolol XL (24 HR) Succ 50 MG TAB.ER.24H PO SCH (08:49)
[2021-06-11] MEDS: Losartan/HCTZ 50-12.5 TABLET PO SCH (08:49)
[2021-06-11] MEDS: *HR* Glimepiride 4 MG TABLET PO SCH (08:50)
[2021-06-11] MEDS: Gabapentin 300 MG CAPSULE PO SCH ×2 (08:50→21:48)
[2021-06-11] MEDS: Insulin LISPRO 300 UNITS/3 ML VIAL SUBQ SCH ×4 (08:50→21:48)
[2021-06-11] MEDS: Insulin DETEMIR 100 UNIT/ML X5UNITS SUBQ SCH ×2 (08:51→21:48)
[2021-06-11] MEDS: cloNIDine HCL 0.1 MG TABLET PO SCH ×2 (08:53→21:48)
[2021-06-11] MEDS: *HR* HYDROcodone/Acet 5/325 mg TABLET PO PRN (17:53)
[2021-06-12] MEDS: *HR* HYDROcodone/Acet 5/325 mg TABLET PO PRN ×3 (02:59→21:32)
[2021-06-12] MEDS: *HR* Enoxaparin 40 MG/0.4 ML SYRINGE SQ SCH (05:47)
[2021-06-12] MEDS: Levothyroxine 25 MCG TABLET PO SCH (05:47)
[2021-06-12] MEDS: cloNIDine HCL 0.1 MG TABLET PO SCH ×2 (08:13→21:32)
[2021-06-12] MEDS: *HR* Glimepiride 4 MG TABLET PO SCH (08:13)
[2021-06-12] MEDS: Metoprolol XL (24 HR) Succ 50 MG TAB.ER.24H PO SCH (08:13)
[2021-06-12] MEDS: Gabapentin 300 MG CAPSULE PO SCH ×2 (08:13→21:32)
[2021-06-12] MEDS: Insulin DETEMIR 100 UNIT/ML X5UNITS SUBQ SCH ×2 (08:14→21:37)
[2021-06-12] MEDS: Insulin LISPRO 300 UNITS/3 ML VIAL SUBQ SCH ×4 (08:14→21:36)
[2021-06-12] MEDS: Losartan/HCTZ 50-12.5 TABLET PO SCH (08:14)
[2021-06-12 08:46] LABS: Hematocrit 32.5 % (35.3-44.9); Hemoglobin 10.6 g/dL (11.5-15.4); Mean Corpuscular HGB Conc 32.6 g/dL (31.6-35.5); Mean Corpuscular Hemoglobin 28.5 pg (28.0-33.3); Mean Corpuscular Volume 87.4 fL (83.0-100.0); Mean Platelet Volume 9.6 fL (9.4-12.4); Platelet Count 250 K/mcL (140-400); Red Blood Count 3.72 M/mcL (3.82-4.97); Red Cell Distribution Width 14.5 % (11.5-14.5); White Blood Count 12.4 K/mcL (4.3-11.1)
[2021-06-12 08:54] LABS: BUN/Creatinine Ratio 36 (6-26); Blood Urea Nitrogen 37 mg/dL (8-23); Calcium 8.3 mg/dL (8.6-10.3); Carbon Dioxide 25 mEq/L (23-29); Chloride 103 mEq/L (98-107); Glucose 249 mg/dL (70-105); Osmolality,Calculated 297 (280-300); Potassium 4.5 mEq/L (3.5-5.1); Sodium 135 mEq/L (136-145); eGFR For African Americans > 60 (> 60); eGFR For Non-African Americans 53 (> 60)
[2021-06-13] MEDS: Levothyroxine 25 MCG TABLET PO SCH (05:37)
[2021-06-13] MEDS: *HR* Enoxaparin 40 MG/0.4 ML SYRINGE SQ SCH (05:37)
[2021-06-13] MEDS: Losartan/HCTZ 50-12.5 TABLET PO SCH (08:06)
[2021-06-13] MEDS: *HR* Glimepiride 4 MG TABLET PO SCH (08:08)
[2021-06-13] MEDS: Metoprolol XL (24 HR) Succ 50 MG TAB.ER.24H PO SCH (08:08)
[2021-06-13] MEDS: cloNIDine HCL 0.1 MG TABLET PO SCH ×2 (08:08→20:56)
[2021-06-13] MEDS: Gabapentin 300 MG CAPSULE PO SCH ×2 (08:09→20:56)
[2021-06-13] MEDS: Insulin LISPRO 300 UNITS/3 ML VIAL SUBQ SCH ×7 (08:19→20:53)
[2021-06-13] MEDS: Insulin DETEMIR 100 UNIT/ML X5UNITS SUBQ SCH ×2 (08:22→20:53)
[2021-06-13] MEDS ORDERED: polyethylene glycoL 3350 17 GM POWD.PACK PO PRN (17:32)
[2021-06-14] MEDS: Levothyroxine 25 MCG TABLET PO SCH (05:43)
[2021-06-14] MEDS: *HR* Enoxaparin 40 MG/0.4 ML SYRINGE SQ SCH (08:02)
[2021-06-14] MEDS: Metoprolol XL (24 HR) Succ 50 MG TAB.ER.24H PO SCH (08:03)
[2021-06-14] MEDS: Insulin LISPRO 300 UNITS/3 ML VIAL SUBQ SCH ×7 (08:03→20:56)
[2021-06-14] MEDS: *HR* Glimepiride 4 MG TABLET PO SCH (08:03)
[2021-06-14] MEDS: Losartan/HCTZ 50-12.5 TABLET PO SCH (08:03)
[2021-06-14] MEDS: cloNIDine HCL 0.1 MG TABLET PO SCH ×2 (08:03→20:55)
[2021-06-14] MEDS: Gabapentin 300 MG CAPSULE PO SCH ×2 (08:03→20:54)
[2021-06-14] MEDS: Insulin DETEMIR 100 UNIT/ML X5UNITS SUBQ SCH ×2 (08:41→20:56)
[2021-06-14] MEDS ORDERED: Bisacodyl 10 MG RECTAL SUPPOSITORY RC PRN (13:59)
[2021-06-14] MEDS: Sennosides/Docusate Sodium TABLET PO SCH (20:55)
[2021-06-15] MEDS: *HR* Enoxaparin 40 MG/0.4 ML SYRINGE SQ SCH (05:48)
[2021-06-15] MEDS: Levothyroxine 25 MCG TABLET PO SCH (05:48)
[2021-06-15] MEDS: Metoprolol XL (24 HR) Succ 50 MG TAB.ER.24H PO SCH (09:43)
[2021-06-15] MEDS: Gabapentin 300 MG CAPSULE PO SCH ×2 (09:43→20:27)
[2021-06-15] MEDS: *HR* Glimepiride 4 MG TABLET PO SCH (09:43)
[2021-06-15] MEDS: cloNIDine HCL 0.1 MG TABLET PO SCH ×2 (09:44→20:27)
[2021-06-15] MEDS: Sennosides/Docusate Sodium TABLET PO SCH ×2 (09:44→20:27)
[2021-06-15] MEDS: Insulin LISPRO 300 UNITS/3 ML VIAL SUBQ SCH ×7 (09:49→20:26)
[2021-06-15] MEDS: Insulin DETEMIR 100 UNIT/ML X5UNITS SUBQ SCH ×2 (09:53→20:26)
[2021-06-15] MEDS: Losartan/HCTZ 50-12.5 TABLET PO SCH (09:53)
[2021-06-16] MEDS: Levothyroxine 25 MCG TABLET PO SCH (06:08)
[2021-06-16] MEDS: *HR* Enoxaparin 40 MG/0.4 ML SYRINGE SQ SCH (06:08)
[2021-06-16] MEDS: Sennosides/Docusate Sodium TABLET PO SCH ×2 (09:46→21:06)
[2021-06-16] MEDS: Insulin DETEMIR 100 UNIT/ML X5UNITS SUBQ SCH ×2 (09:46→21:06)
[2021-06-16] MEDS: *HR* Glimepiride 4 MG TABLET PO SCH (09:46)
[2021-06-16] MEDS: Losartan/HCTZ 50-12.5 TABLET PO SCH (09:46)
[2021-06-16] MEDS: Gabapentin 300 MG CAPSULE PO SCH ×2 (09:46→21:07)
[2021-06-16] MEDS: cloNIDine HCL 0.1 MG TABLET PO SCH ×2 (09:46→21:07)
[2021-06-16] MEDS: Metoprolol XL (24 HR) Succ 50 MG TAB.ER.24H PO SCH (09:46)
[2021-06-16] MEDS: Insulin LISPRO 300 UNITS/3 ML VIAL SUBQ SCH ×7 (09:47→20:10)
[2021-06-16] MEDS: *HR* HYDROcodone/Acet 5/325 mg TABLET PO PRN (21:07)
[2021-06-16] MEDS: hydrOXYzine pamoate 25 MG CAPSULE PO PRN (21:08)
[2021-06-17] MEDS: Levothyroxine 25 MCG TABLET PO SCH (06:59)
[2021-06-17] MEDS: *HR* Enoxaparin 40 MG/0.4 ML SYRINGE SQ SCH (06:59)
[2021-06-17] MEDS: Losartan/HCTZ 50-12.5 TABLET PO SCH (08:14)
[2021-06-17] MEDS: Metoprolol XL (24 HR) Succ 50 MG TAB.ER.24H PO SCH (08:14)
[2021-06-17] MEDS: Gabapentin 300 MG CAPSULE PO SCH ×2 (08:14→21:24)
[2021-06-17] MEDS: Sennosides/Docusate Sodium TABLET PO SCH ×2 (08:15→21:24)
[2021-06-17] MEDS: *HR* Glimepiride 4 MG TABLET PO SCH (08:15)
[2021-06-17] MEDS: cloNIDine HCL 0.1 MG TABLET PO SCH ×2 (08:15→21:23)
[2021-06-17] MEDS: Insulin DETEMIR 100 UNIT/ML X5UNITS SUBQ SCH ×2 (09:03→21:23)
[2021-06-17] MEDS: Insulin LISPRO 300 UNITS/3 ML VIAL SUBQ SCH ×7 (09:04→21:23)
[2021-06-17] MEDS: Acetaminophen 325 MG TABLET PO PRN (15:49)
[2021-06-18] MEDS: Levothyroxine 25 MCG TABLET PO SCH (05:58)
[2021-06-18] MEDS: *HR* Enoxaparin 40 MG/0.4 ML SYRINGE SQ SCH (05:59)
[2021-06-18] MEDS: Insulin LISPRO 300 UNITS/3 ML VIAL SUBQ SCH ×7 (10:05→20:18)
[2021-06-18] MEDS: Insulin DETEMIR 100 UNIT/ML X5UNITS SUBQ SCH ×2 (10:06→20:18)
[2021-06-18] MEDS: *HR* Glimepiride 4 MG TABLET PO SCH (10:07)
[2021-06-18] MEDS: Losartan/HCTZ 50-12.5 TABLET PO SCH (10:07)
[2021-06-18] MEDS: Sennosides/Docusate Sodium TABLET PO SCH ×2 (10:07→20:17)
[2021-06-18] MEDS: Gabapentin 300 MG CAPSULE PO SCH ×2 (10:07→20:18)
[2021-06-18] MEDS: Metoprolol XL (24 HR) Succ 50 MG TAB.ER.24H PO SCH (10:08)
[2021-06-18] MEDS: cloNIDine HCL 0.1 MG TABLET PO SCH ×2 (10:08→20:18)
[2021-06-18] MEDS: Acetaminophen 325 MG TABLET PO PRN (10:13)
[2021-06-19] MEDS: hydrOXYzine pamoate 25 MG CAPSULE PO PRN (00:45)
[2021-06-19] MEDS: Acetaminophen 325 MG TABLET PO PRN (05:45)
[2021-06-19] MEDS: Levothyroxine 25 MCG TABLET PO SCH (05:45)
[2021-06-19] MEDS: *HR* Enoxaparin 40 MG/0.4 ML SYRINGE SQ SCH (05:45)
[2021-06-19 07:29] LABS: Basophils # 0.1 K/mcL (0.0-0.2); Eosinophils # 0.5 K/mcL (0.0-0.6); Eosinophils % 5.3 %; Hematocrit 29.5 % (35.3-44.9); Hemoglobin 9.2 g/dL (11.5-15.4); Immature Granulocytes % 5.1 % (0-4); Lymphocytes # 2.5 K/mcL (0.6-4.6); Lymphocytes % 25.6 %; Mean Corpuscular HGB Conc 31.2 g/dL (31.6-35.5); Mean Corpuscular Hemoglobin 27.6 pg (28.0-33.3); Mean Corpuscular Volume 88.6 fL (83.0-100.0); Mean Platelet Volume 9.1 fL (9.4-12.4); Monocytes % 10.5 %; Neutrophils # 5.1 K/mcL (1.6-8.9); Platelet Count 365 K/mcL (140-400); Red Blood Count 3.33 M/mcL (3.82-4.97); Red Cell Distribution Width 14.5 % (11.5-14.5); Segmented Neutrophils % 52.5 %; White Blood Count 9.7 K/mcL (4.3-11.1)
[2021-06-19 07:53] LABS: BUN/Creatinine Ratio 21 (6-26); Blood Urea Nitrogen 16 mg/dL (8-23); Calcium 8.6 mg/dL (8.6-10.3); Carbon Dioxide 26 mEq/L (23-29); Chloride 107 mEq/L (98-107); Glucose 152 mg/dL (70-105); Osmolality,Calculated 294 (280-300); Potassium 4.2 mEq/L (3.5-5.1); Sodium 140 mEq/L (136-145); eGFR For African Americans > 60 (> 60); eGFR For Non-African Americans > 60 (> 60)
[2021-06-19 09:42] LABS: Platelet Estimate Normal (Normal)
[2021-06-19] MEDS: Insulin DETEMIR 100 UNIT/ML X5UNITS SUBQ SCH ×2 (09:49→21:05)
[2021-06-19] MEDS: Insulin LISPRO 300 UNITS/3 ML VIAL SUBQ SCH ×7 (09:49→21:06)
[2021-06-19] MEDS: cloNIDine HCL 0.1 MG TABLET PO SCH ×2 (09:50→21:05)
[2021-06-19] MEDS: *HR* Glimepiride 4 MG TABLET PO SCH (09:50)
[2021-06-19] MEDS: Gabapentin 300 MG CAPSULE PO SCH ×2 (09:50→21:05)
[2021-06-19] MEDS: Sennosides/Docusate Sodium TABLET PO SCH ×2 (09:50→21:05)
[2021-06-19] MEDS: Losartan/HCTZ 50-12.5 TABLET PO SCH (09:50)
[2021-06-19] MEDS: Metoprolol XL (24 HR) Succ 50 MG TAB.ER.24H PO SCH (09:50)
[2021-06-19] MEDS: *HR* HYDROcodone/Acet 5/325 mg TABLET PO PRN (21:04)
[2021-06-20] MEDS: *HR* Enoxaparin 40 MG/0.4 ML SYRINGE SQ SCH (05:59)
[2021-06-20] MEDS: Levothyroxine 25 MCG TABLET PO SCH (05:59)
[2021-06-20] MEDS: Gabapentin 300 MG CAPSULE PO SCH ×2 (08:34→19:48)
[2021-06-20] MEDS: Sennosides/Docusate Sodium TABLET PO SCH ×2 (08:34→19:41)
[2021-06-20] MEDS: Metoprolol XL (24 HR) Succ 50 MG TAB.ER.24H PO SCH (08:34)
[2021-06-20] MEDS: *HR* Glimepiride 4 MG TABLET PO SCH (08:35)
[2021-06-20] MEDS: cloNIDine HCL 0.1 MG TABLET PO SCH ×2 (08:35→19:48)
[2021-06-20] MEDS: Insulin DETEMIR 100 UNIT/ML X5UNITS SUBQ SCH ×2 (08:37→19:48)
[2021-06-20] MEDS: Insulin LISPRO 300 UNITS/3 ML VIAL SUBQ SCH ×5 (08:38→19:49)
[2021-06-20] MEDS: Losartan/HCTZ 50-12.5 TABLET PO SCH (08:47)
[2021-06-20] MEDS: *HR* HYDROcodone/Acet 5/325 mg TABLET PO PRN ×2 (10:22→13:49)
[2021-06-21] MEDS: *HR* Enoxaparin 40 MG/0.4 ML SYRINGE SQ SCH (05:42)
[2021-06-21] MEDS: Levothyroxine 25 MCG TABLET PO SCH (05:42)
[2021-06-21] MEDS: Insulin LISPRO 300 UNITS/3 ML VIAL SUBQ SCH ×4 (07:24→19:42)
[2021-06-21] MEDS: cloNIDine HCL 0.1 MG TABLET PO SCH ×2 (07:39→19:43)
[2021-06-21] MEDS: Metoprolol XL (24 HR) Succ 50 MG TAB.ER.24H PO SCH (07:39)
[2021-06-21] MEDS: *HR* Glimepiride 4 MG TABLET PO SCH (07:39)
[2021-06-21] MEDS: Sennosides/Docusate Sodium TABLET PO SCH ×2 (07:39→19:43)
[2021-06-21] MEDS: Gabapentin 300 MG CAPSULE PO SCH ×2 (07:39→19:43)
[2021-06-21] MEDS: Insulin DETEMIR 100 UNIT/ML X5UNITS SUBQ SCH ×2 (08:51→19:42)
[2021-06-21] MEDS: Furosemide 20 MG TABLET PO SCH (08:51)
[2021-06-21] MEDS: *HR* HYDROcodone/Acet 5/325 mg TABLET PO PRN (19:42)
[2021-06-22] MEDS: Levothyroxine 25 MCG TABLET PO SCH (05:50)
[2021-06-22] MEDS: *HR* Enoxaparin 40 MG/0.4 ML SYRINGE SQ SCH (05:50)
[2021-06-22] MEDS: Furosemide 20 MG TABLET PO SCH (07:29)
[2021-06-22] MEDS: Metoprolol XL (24 HR) Succ 50 MG TAB.ER.24H PO SCH (07:29)
[2021-06-22] MEDS: Sennosides/Docusate Sodium TABLET PO SCH ×2 (07:29→21:54)
[2021-06-22] MEDS: Gabapentin 300 MG CAPSULE PO SCH ×2 (07:29→21:53)
[2021-06-22] MEDS: cloNIDine HCL 0.1 MG TABLET PO SCH ×2 (07:29→21:53)
[2021-06-22] MEDS: *HR* Glimepiride 4 MG TABLET PO SCH (07:29)
[2021-06-22] MEDS: Insulin LISPRO 300 UNITS/3 ML VIAL SUBQ SCH ×4 (07:30→21:54)
[2021-06-22] MEDS: Insulin DETEMIR 100 UNIT/ML X5UNITS SUBQ SCH ×2 (10:38→21:54)
[2021-06-22] MEDS: *HR* HYDROcodone/Acet 5/325 mg TABLET PO PRN ×2 (15:15→22:49)
[2021-06-22] MEDS: hydrOXYzine pamoate 25 MG CAPSULE PO PRN (21:54)
[2021-06-23] MEDS: *HR* Enoxaparin 40 MG/0.4 ML SYRINGE SQ SCH (06:49)
[2021-06-23] MEDS: Levothyroxine 25 MCG TABLET PO SCH (06:49)
[2021-06-23] MEDS: Gabapentin 300 MG CAPSULE PO SCH ×2 (07:36→21:01)
[2021-06-23] MEDS: *HR* Glimepiride 4 MG TABLET PO SCH (07:36)
[2021-06-23] MEDS: Metoprolol XL (24 HR) Succ 50 MG TAB.ER.24H PO SCH (07:36)
[2021-06-23] MEDS: Sennosides/Docusate Sodium TABLET PO SCH ×2 (07:37→21:01)
[2021-06-23] MEDS: Furosemide 20 MG TABLET PO SCH (07:37)
[2021-06-23] MEDS: cloNIDine HCL 0.1 MG TABLET PO SCH ×2 (07:37→21:01)
[2021-06-23] MEDS: Insulin LISPRO 300 UNITS/3 ML VIAL SUBQ SCH ×4 (07:38→20:51)
[2021-06-23] MEDS: *HR* HYDROcodone/Acet 5/325 mg TABLET PO PRN ×2 (07:44→16:16)
[2021-06-23] MEDS: Insulin DETEMIR 100 UNIT/ML X5UNITS SUBQ SCH ×2 (08:19→20:59)
[2021-06-23] MEDS ORDERED: hydrALAZINE 25 MG TABLET PO PRN (15:34)
[2021-06-24] MEDS: Levothyroxine 25 MCG TABLET PO SCH (05:37)
[2021-06-24] MEDS: *HR* Enoxaparin 40 MG/0.4 ML SYRINGE SQ SCH (05:37)
[2021-06-24] MEDS: Sennosides/Docusate Sodium TABLET PO SCH ×2 (07:40→20:48)
[2021-06-24] MEDS: Metoprolol XL (24 HR) Succ 50 MG TAB.ER.24H PO SCH (07:40)
[2021-06-24] MEDS: cloNIDine HCL 0.1 MG TABLET PO SCH ×2 (07:42→20:49)
[2021-06-24] MEDS: *HR* Glimepiride 4 MG TABLET PO SCH (07:42)
[2021-06-24] MEDS: Insulin LISPRO 300 UNITS/3 ML VIAL SUBQ SCH ×4 (07:43→20:49)
[2021-06-24] MEDS: Gabapentin 300 MG CAPSULE PO SCH ×2 (07:43→20:49)
[2021-06-24] MEDS: Furosemide 20 MG TABLET PO SCH (07:43)
[2021-06-24] MEDS: Insulin DETEMIR 100 UNIT/ML X5UNITS SUBQ SCH ×2 (11:02→20:49)
[2021-06-24] MEDS: *HR* HYDROcodone/Acet 5/325 mg TABLET PO PRN (20:49)
[2021-06-24] MEDS: hydrOXYzine pamoate 25 MG CAPSULE PO PRN (20:49)
[2021-06-25] MEDS: *HR* Enoxaparin 40 MG/0.4 ML SYRINGE SQ SCH (05:59)
[2021-06-25] MEDS: Levothyroxine 25 MCG TABLET PO SCH (05:59)
[2021-06-25] MEDS: Insulin LISPRO 300 UNITS/3 ML VIAL SUBQ SCH ×4 (08:48→20:17)
[2021-06-25] MEDS: *HR* Glimepiride 4 MG TABLET PO SCH (08:52)
[2021-06-25] MEDS: Sennosides/Docusate Sodium TABLET PO SCH ×2 (08:52→20:17)
[2021-06-25] MEDS: cloNIDine HCL 0.1 MG TABLET PO SCH ×2 (08:53→20:17)
[2021-06-25] MEDS: Gabapentin 300 MG CAPSULE PO SCH ×2 (08:53→20:17)
[2021-06-25] MEDS: Metoprolol XL (24 HR) Succ 50 MG TAB.ER.24H PO SCH (08:53)
[2021-06-25] MEDS: Furosemide 20 MG TABLET PO SCH (08:54)
[2021-06-25] MEDS: Insulin DETEMIR 100 UNIT/ML X5UNITS SUBQ SCH ×2 (10:03→20:16)
[2021-06-25] MEDS: *HR* HYDROcodone/Acet 5/325 mg TABLET PO PRN ×2 (12:02→18:15)
[2021-06-25] MEDS: hydrOXYzine pamoate 25 MG CAPSULE PO PRN (20:17)
[2021-06-26] MEDS: *HR* Enoxaparin 40 MG/0.4 ML SYRINGE SQ SCH (07:25)
[2021-06-26] MEDS: Levothyroxine 25 MCG TABLET PO SCH (07:26)
[2021-06-26 08:03] LABS: Hematocrit 27.6 % (35.3-44.9); Hemoglobin 8.4 g/dL (11.5-15.4); Mean Corpuscular HGB Conc 30.4 g/dL (31.6-35.5); Mean Corpuscular Hemoglobin 27.6 pg (28.0-33.3); Mean Corpuscular Volume 90.8 fL (83.0-100.0); Mean Platelet Volume 9.1 fL (9.4-12.4); Platelet Count 485 K/mcL (140-400); Red Blood Count 3.04 M/mcL (3.82-4.97); Red Cell Distribution Width 15.1 % (11.5-14.5); White Blood Count 12.7 K/mcL (4.3-11.1)
[2021-06-26 08:38] LABS: BUN/Creatinine Ratio 25 (6-26); Blood Urea Nitrogen 22 mg/dL (8-23); Calcium 8.3 mg/dL (8.6-10.3); Carbon Dioxide 24 mEq/L (23-29); Chloride 107 mEq/L (98-107); Glucose 184 mg/dL (70-105); Osmolality,Calculated 298 (280-300); Potassium 4.4 mEq/L (3.5-5.1); Sodium 140 mEq/L (136-145); eGFR For African Americans > 60 (> 60); eGFR For Non-African Americans > 60 (> 60)
[2021-06-26] MEDS: cloNIDine HCL 0.1 MG TABLET PO SCH ×2 (09:03→21:49)
[2021-06-26] MEDS: *HR* Glimepiride 4 MG TABLET PO SCH (09:03)
[2021-06-26] MEDS: Furosemide 20 MG TABLET PO SCH (09:03)
[2021-06-26] MEDS: Sennosides/Docusate Sodium TABLET PO SCH ×2 (09:03→21:50)
[2021-06-26] MEDS: Insulin DETEMIR 100 UNIT/ML X5UNITS SUBQ SCH ×2 (09:04→21:50)
[2021-06-26] MEDS: Metoprolol XL (24 HR) Succ 50 MG TAB.ER.24H PO SCH (09:04)
[2021-06-26] MEDS: Gabapentin 300 MG CAPSULE PO SCH ×2 (09:04→21:50)
[2021-06-26] MEDS: Insulin LISPRO 300 UNITS/3 ML VIAL SUBQ SCH ×4 (09:05→21:50)
[2021-06-26] MEDS: *HR* HYDROcodone/Acet 5/325 mg TABLET PO PRN ×2 (09:10→17:00)
[2021-06-26] MEDS: hydrOXYzine pamoate 25 MG CAPSULE PO PRN (21:49)
[2021-06-27] MEDS: *HR* HYDROcodone/Acet 5/325 mg TABLET PO PRN ×2 (01:11→19:40)
[2021-06-27] MEDS: Levothyroxine 25 MCG TABLET PO SCH (06:35)
[2021-06-27] MEDS: *HR* Enoxaparin 40 MG/0.4 ML SYRINGE SQ SCH (06:35)
[2021-06-27] MEDS: Insulin LISPRO 300 UNITS/3 ML VIAL SUBQ SCH ×4 (08:33→19:40)
[2021-06-27] MEDS: Insulin DETEMIR 100 UNIT/ML X5UNITS SUBQ SCH ×2 (08:33→21:23)
[2021-06-27] MEDS: cloNIDine HCL 0.1 MG TABLET PO SCH ×2 (08:34→19:40)
[2021-06-27] MEDS: Metoprolol XL (24 HR) Succ 50 MG TAB.ER.24H PO SCH (08:34)
[2021-06-27] MEDS: Gabapentin 300 MG CAPSULE PO SCH ×2 (08:34→19:40)
[2021-06-27] MEDS: *HR* Glimepiride 4 MG TABLET PO SCH (08:34)
[2021-06-27] MEDS: Furosemide 20 MG TABLET PO SCH (08:34)
[2021-06-27] MEDS: Sennosides/Docusate Sodium TABLET PO SCH ×2 (08:34→19:40)
[2021-06-27] MEDS: hydrOXYzine pamoate 25 MG CAPSULE PO PRN (21:23)
[2021-06-28] MEDS: Levothyroxine 25 MCG TABLET PO SCH (05:44)
[2021-06-28] MEDS: *HR* Enoxaparin 40 MG/0.4 ML SYRINGE SQ SCH (05:44)
[2021-06-28] MEDS: Sennosides/Docusate Sodium TABLET PO SCH ×2 (09:19→19:50)
[2021-06-28] MEDS: *HR* Glimepiride 4 MG TABLET PO SCH (09:19)
[2021-06-28] MEDS: Metoprolol XL (24 HR) Succ 50 MG TAB.ER.24H PO SCH (09:19)
[2021-06-28] MEDS: cloNIDine HCL 0.1 MG TABLET PO SCH ×2 (09:21→19:52)
[2021-06-28] MEDS: Insulin DETEMIR 100 UNIT/ML X5UNITS SUBQ SCH ×2 (09:21→19:51)
[2021-06-28] MEDS: Furosemide 20 MG TABLET PO SCH (09:21)
[2021-06-28] MEDS: Gabapentin 300 MG CAPSULE PO SCH ×2 (09:21→19:51)
[2021-06-28] MEDS: Insulin LISPRO 300 UNITS/3 ML VIAL SUBQ SCH ×4 (09:22→19:52)
[2021-06-28] MEDS: Acetaminophen 325 MG TABLET PO PRN (10:45)
[2021-06-28] MEDS: *HR* HYDROcodone/Acet 5/325 mg TABLET PO PRN (19:51)
[2021-06-29] MEDS: Levothyroxine 25 MCG TABLET PO SCH (05:04)
[2021-06-29] MEDS: *HR* HYDROcodone/Acet 5/325 mg TABLET PO PRN ×2 (05:04→20:35)
[2021-06-29] MEDS: *HR* Enoxaparin 40 MG/0.4 ML SYRINGE SQ SCH (05:49)
[2021-06-29] MEDS: Insulin LISPRO 300 UNITS/3 ML VIAL SUBQ SCH ×4 (08:47→20:36)
[2021-06-29] MEDS: Insulin DETEMIR 100 UNIT/ML X5UNITS SUBQ SCH ×2 (08:48→20:48)
[2021-06-29] MEDS: *HR* Glimepiride 4 MG TABLET PO SCH (09:15)
[2021-06-29] MEDS: Furosemide 20 MG TABLET PO SCH (09:15)
[2021-06-29] MEDS: cloNIDine HCL 0.1 MG TABLET PO SCH ×2 (09:15→20:35)
[2021-06-29] MEDS: Metoprolol XL (24 HR) Succ 50 MG TAB.ER.24H PO SCH (09:15)
[2021-06-29] MEDS: Sennosides/Docusate Sodium TABLET PO SCH ×2 (09:16→20:35)
[2021-06-29] MEDS: Gabapentin 300 MG CAPSULE PO SCH ×2 (09:16→20:34)
[2021-06-29 11:39] LABS: Hematocrit 29.8 % (35.3-44.9); Hemoglobin 9.2 g/dL (11.5-15.4); Mean Corpuscular HGB Conc 30.9 g/dL (31.6-35.5); Mean Corpuscular Hemoglobin 27.5 pg (28.0-33.3); Nucleated Red Blood Cells 0.2 /100 WBC (0); Platelet Count 428 K/mcL (140-400); Red Blood Count 3.35 M/mcL (3.82-4.97); Red Cell Distribution Width 15.2 % (11.5-14.5); White Blood Count 9.5 K/mcL (4.3-11.1)
[2021-06-29 11:55] LABS: BUN/Creatinine Ratio 22 (6-26); Blood Urea Nitrogen 20 mg/dL (8-23); Calcium 8.5 mg/dL (8.6-10.3); Carbon Dioxide 23 mEq/L (23-29); Chloride 104 mEq/L (98-107); Glucose 252 mg/dL (70-105); Osmolality,Calculated 289 (280-300); Sodium 134 mEq/L (136-145); eGFR For African Americans > 60 (> 60); eGFR For Non-African Americans 59 (> 60)
[2021-06-29 12:29] LABS: Lymphocytes # 2.7 K/mcL (0.6-4.6); Monocytes # 1.1 K/mcL (0.0-1.3); Neutrophils # 5.1 K/mcL (1.6-8.9)
[2021-06-29 12:30] LABS: Platelet Estimate Increased (Normal)
[2021-06-30] MEDS: *HR* Enoxaparin 40 MG/0.4 ML SYRINGE SQ SCH (05:49)
[2021-06-30] MEDS: Levothyroxine 25 MCG TABLET PO SCH (05:49)
[2021-06-30] MEDS: Gabapentin 300 MG CAPSULE PO SCH (08:12)
[2021-06-30] MEDS: Acetaminophen 325 MG TABLET PO PRN (08:12)
[2021-06-30] MEDS: Furosemide 20 MG TABLET PO SCH (08:12)
[2021-06-30] MEDS: *HR* Glimepiride 4 MG TABLET PO SCH (08:12)
[2021-06-30] MEDS: Metoprolol XL (24 HR) Succ 50 MG TAB.ER.24H PO SCH (08:13)
[2021-06-30] MEDS: Sennosides/Docusate Sodium TABLET PO SCH (08:13)
[2021-06-30] MEDS: cloNIDine HCL 0.1 MG TABLET PO SCH (08:13)
[2021-06-30] MEDS: Insulin LISPRO 300 UNITS/3 ML VIAL SUBQ SCH ×3 (08:13→16:31)
[2021-06-30] MEDS: Insulin DETEMIR 100 UNIT/ML X5UNITS SUBQ SCH (09:04)
[2021-06-30 11:51] VITALS: BP 130/79; PULSE 88; RESP 20; TEMP 99.7; O2SAT 94
== END 2021-06-30 16:46 | disposition expired | DRG 948 ==
LOC: INPPIK 19:56
PROVIDERS: ADMIT Family Medicine; ATTEND Family Medicine

== ENCOUNTER 2021-07-01 09:23 | Observation (INO) ==
[2021-07-01 09:56] LABS: Bilirubin,Urine Negative (Negative); Blood,Urine Negative (Negative); Clarity,Urine Clear (Clear); Color,Urine Yellow (Yellow); Glucose,Urine (UA) Normal (Normal); Ketones,Urine Negative (Negative); Leukocyte Esterase,Urine Small (Negative); Nitrite,Urine Negative (Negative); Protein,Urine Negative (Neg-Trace); Urobilinogen,Urine Normal (Normal)
[2021-07-01 10:09] LABS: Basophils # 0.1 K/mcL (0.0-0.2); Basophils % 0.6 %; Eosinophils # 0.2 K/mcL (0.0-0.6); Eosinophils % 1.7 %; Lymphocytes # 4.4 K/mcL (0.6-4.6); Lymphocytes % 37.3 %; Mean Corpuscular HGB Conc 29.7 g/dL (31.6-35.5); Mean Corpuscular Hemoglobin 27.6 pg (28.0-33.3); Monocytes # 1.1 K/mcL (0.0-1.3); Monocytes % 9.3 %; Neutrophils # 5.4 K/mcL (1.6-8.9); Platelet Count 495 K/mcL (140-400); Red Blood Count 3.87 M/mcL (3.82-4.97); Red Cell Distribution Width 15.1 % (11.5-14.5); Segmented Neutrophils % 46.1 %; White Blood Count 11.7 K/mcL (4.3-11.1)
[2021-07-01 10:15] LABS: Hemoglobin 10.7 g/dL (11.5-15.4)
[2021-07-01 10:22] LABS: BUN/Creatinine Ratio 17 (6-26); Blood Urea Nitrogen 16 mg/dL (8-23); Calcium 8.9 mg/dL (8.6-10.3); Carbon Dioxide 23 mEq/L (23-29); Chloride 106 mEq/L (98-107); Glucose 239 mg/dL (70-105); Osmolality,Calculated 297 (280-300); Potassium 3.9 mEq/L (3.5-5.1); Sodium 139 mEq/L (136-145); eGFR For African Americans > 60 (> 60); eGFR For Non-African Americans 59 (> 60)
[2021-07-01 10:31] LABS: Budding Yeast,Urine Moderate per hpf (None Seen); WBC,Urine 0-3 per hpf (0-3)
[2021-07-01 10:34] LABS: Platelet Estimate Increased (Normal)
[2021-07-01] MEDS ORDERED: Ondansetron ODT 4 MG TAB.RAPDIS SL ONE (11:19)
[2021-07-01] MEDS ORDERED: Naloxone 0.4 MG/ML INJ IVP PRN (14:33)
[2021-07-01] MEDS ORDERED: Acetaminophen 325 MG TABLET PO PRN (14:37)
[2021-07-01] MEDS ORDERED: D5% in Water 1,000 ML IVC PRN (14:40)
[2021-07-01] MEDS ORDERED: Dextrose 4 GM Chewable Tablets PO PRN ×2 (14:40)
[2021-07-01] MEDS ORDERED: *HR* Dextrose 50 % in Water (Syg) 50 ML SYRINGE IVP PRN (14:40)
[2021-07-01] MEDS: Insulin LISPRO 300 UNITS/3 ML VIAL SUBQ SCH ×2 (16:51→21:08)
[2021-07-01] MEDS: *HR* HYDROcodone/Acet 5/325 mg TABLET PO PRN (17:29)
[2021-07-01] MEDS: Ondansetron ODT 4 MG TAB.RAPDIS SL PRN ×2 (17:32→22:09)
[2021-07-01] MEDS: cloNIDine HCL 0.1 MG TABLET PO SCH (21:08)
[2021-07-01] MEDS: Sennosides/Docusate Sodium TABLET PO SCH (21:08)
[2021-07-01] MEDS: Melatonin 3 MG TABLET PO PRN (21:08)
[2021-07-01] MEDS: Gabapentin 300 MG CAPSULE PO SCH (21:08)
[2021-07-01] MEDS: hydrOXYzine pamoate 25 MG CAPSULE PO PRN (21:08)
[2021-07-02] MEDS: *HR* HYDROcodone/Acet 5/325 mg TABLET PO PRN (03:06)
[2021-07-02] MEDS: Levothyroxine 25 MCG TABLET PO SCH (05:51)
[2021-07-02] MEDS: Insulin LISPRO 300 UNITS/3 ML VIAL SUBQ SCH ×4 (08:23→22:19)
[2021-07-02] MEDS: *HR* Glimepiride 4 MG TABLET PO SCH (08:23)
[2021-07-02] MEDS: cloNIDine HCL 0.1 MG TABLET PO SCH ×2 (08:42→20:28)
[2021-07-02] MEDS: Furosemide 20 MG TABLET PO SCH (08:42)
[2021-07-02] MEDS: Sennosides/Docusate Sodium TABLET PO SCH ×2 (08:42→20:28)
[2021-07-02] MEDS: Metoprolol XL (24 HR) Succ 50 MG TAB.ER.24H PO SCH (08:43)
[2021-07-02] MEDS: Fluconazole 150 MG TABLET PO SCH (08:43)
[2021-07-02] MEDS: Gabapentin 300 MG CAPSULE PO SCH (20:28)
[2021-07-02] MEDS: hydrOXYzine pamoate 25 MG CAPSULE PO PRN (20:31)
[2021-07-02] MEDS: Melatonin 3 MG TABLET PO PRN (20:32)
[2021-07-03] MEDS: Levothyroxine 25 MCG TABLET PO SCH (05:48)
[2021-07-03] MEDS: Insulin LISPRO 300 UNITS/3 ML VIAL SUBQ SCH ×4 (07:45→21:39)
[2021-07-03] MEDS: *HR* Glimepiride 4 MG TABLET PO SCH (07:45)
[2021-07-03] MEDS: Sennosides/Docusate Sodium TABLET PO SCH ×2 (09:19→21:48)
[2021-07-03] MEDS: cloNIDine HCL 0.1 MG TABLET PO SCH ×2 (09:37→21:39)
[2021-07-03] MEDS: Metoprolol XL (24 HR) Succ 50 MG TAB.ER.24H PO SCH (09:37)
[2021-07-03] MEDS: Fluconazole 150 MG TABLET PO SCH (09:37)
[2021-07-03] MEDS: Furosemide 20 MG TABLET PO SCH (09:37)
[2021-07-03] MEDS: *HR* HYDROcodone/Acet 5/325 mg TABLET PO PRN (19:49)
[2021-07-03] MEDS: Melatonin 3 MG TABLET PO PRN (21:39)
[2021-07-03] MEDS: Gabapentin 300 MG CAPSULE PO SCH (21:39)
[2021-07-03] MEDS: hydrOXYzine pamoate 25 MG CAPSULE PO PRN (21:39)
[2021-07-04] MEDS: Levothyroxine 25 MCG TABLET PO SCH (05:11)
[2021-07-04] MEDS: Insulin LISPRO 300 UNITS/3 ML VIAL SUBQ SCH ×4 (08:14→19:37)
[2021-07-04] MEDS: *HR* Glimepiride 4 MG TABLET PO SCH (08:14)
[2021-07-04] MEDS: Furosemide 20 MG TABLET PO SCH (10:16)
[2021-07-04] MEDS: cloNIDine HCL 0.1 MG TABLET PO SCH ×2 (10:16→19:37)
[2021-07-04] MEDS: Metoprolol XL (24 HR) Succ 50 MG TAB.ER.24H PO SCH (10:16)
[2021-07-04] MEDS: Sennosides/Docusate Sodium TABLET PO SCH ×2 (10:16→20:05)
[2021-07-04] MEDS: Fluconazole 150 MG TABLET PO SCH (10:16)
[2021-07-04] MEDS: *HR* HYDROcodone/Acet 5/325 mg TABLET PO PRN ×2 (15:00→20:56)
[2021-07-04] MEDS: Gabapentin 300 MG CAPSULE PO SCH (19:37)
[2021-07-04] MEDS: Melatonin 3 MG TABLET PO PRN (20:55)
[2021-07-04] MEDS: hydrOXYzine pamoate 25 MG CAPSULE PO PRN (20:56)
[2021-07-05] MEDS: *HR* HYDROcodone/Acet 5/325 mg TABLET PO PRN ×2 (03:41→20:45)
[2021-07-05] MEDS: Levothyroxine 25 MCG TABLET PO SCH (05:37)
[2021-07-05] MEDS: Metoprolol XL (24 HR) Succ 50 MG TAB.ER.24H PO SCH (08:35)
[2021-07-05] MEDS: Fluconazole 150 MG TABLET PO SCH (08:35)
[2021-07-05] MEDS: *HR* Glimepiride 4 MG TABLET PO SCH (08:36)
[2021-07-05] MEDS: Furosemide 20 MG TABLET PO SCH (08:36)
[2021-07-05] MEDS: Insulin LISPRO 300 UNITS/3 ML VIAL SUBQ SCH ×4 (08:36→20:53)
[2021-07-05] MEDS: cloNIDine HCL 0.1 MG TABLET PO SCH ×2 (08:36→20:45)
[2021-07-05] MEDS: Sennosides/Docusate Sodium TABLET PO SCH ×2 (08:38→20:53)
[2021-07-05] MEDS: hydrOXYzine pamoate 25 MG CAPSULE PO PRN (20:44)
[2021-07-05] MEDS: Gabapentin 300 MG CAPSULE PO SCH (20:44)
[2021-07-05] MEDS: Melatonin 3 MG TABLET PO PRN (20:45)
[2021-07-05] MEDS ORDERED: Insulin DETEMIR 100 UNIT/ML X5UNITS SUBQ SCH (21:00)
[2021-07-06] MEDS: Levothyroxine 25 MCG TABLET PO SCH (06:32)
[2021-07-06] MEDS: Insulin LISPRO 300 UNITS/3 ML VIAL SUBQ SCH ×4 (07:51→20:19)
[2021-07-06] MEDS: *HR* Glimepiride 4 MG TABLET PO SCH (08:03)
[2021-07-06] MEDS: *HR* Heparin 5,000 UNIT/ML VIAL SQ SCH ×3 (10:21→18:03)
[2021-07-06] MEDS: cloNIDine HCL 0.1 MG TABLET PO SCH ×2 (10:22→20:19)
[2021-07-06] MEDS: Furosemide 20 MG TABLET PO SCH (10:22)
[2021-07-06] MEDS: Fluconazole 150 MG TABLET PO SCH (10:22)
[2021-07-06] MEDS: Sennosides/Docusate Sodium TABLET PO SCH ×2 (10:22→20:18)
[2021-07-06] MEDS: Metoprolol XL (24 HR) Succ 50 MG TAB.ER.24H PO SCH (10:22)
[2021-07-06] MEDS: *HR* HYDROcodone/Acet 5/325 mg TABLET PO PRN (20:18)
[2021-07-06] MEDS: Gabapentin 300 MG CAPSULE PO SCH (20:19)
[2021-07-06] MEDS ORDERED: Insulin DETEMIR 100 UNIT/ML X5UNITS SUBQ SCH (21:00)
[2021-07-07] MEDS: *HR* Heparin 5,000 UNIT/ML VIAL SQ SCH ×2 (05:53→17:00)
[2021-07-07] MEDS: Levothyroxine 25 MCG TABLET PO SCH (05:53)
[2021-07-07] MEDS: Furosemide 20 MG TABLET PO SCH (09:21)
[2021-07-07] MEDS: Metoprolol XL (24 HR) Succ 50 MG TAB.ER.24H PO SCH (09:21)
[2021-07-07] MEDS: cloNIDine HCL 0.1 MG TABLET PO SCH ×2 (09:21→20:10)
[2021-07-07] MEDS: Sennosides/Docusate Sodium TABLET PO SCH ×2 (09:21→20:09)
[2021-07-07] MEDS: *HR* Glimepiride 4 MG TABLET PO SCH (09:21)
[2021-07-07] MEDS: Fluconazole 150 MG TABLET PO SCH (09:21)
[2021-07-07] MEDS: *HR* HYDROcodone/Acet 5/325 mg TABLET PO PRN ×2 (09:23→21:31)
[2021-07-07] MEDS: Insulin LISPRO 300 UNITS/3 ML VIAL SUBQ SCH ×4 (09:26→20:10)
[2021-07-07] MEDS: Gabapentin 300 MG CAPSULE PO SCH (20:09)
[2021-07-07] MEDS: Insulin DETEMIR 100 UNIT/ML X5UNITS SUBQ SCH (20:09)
[2021-07-08] MEDS: *HR* Heparin 5,000 UNIT/ML VIAL SQ SCH ×2 (05:30→18:02)
[2021-07-08] MEDS: Levothyroxine 25 MCG TABLET PO SCH (05:30)
[2021-07-08] MEDS ORDERED: Moderna Covid-19 Vaccine 100MCG/0.5mL IM ONE (08:00)
[2021-07-08] MEDS: *HR* Glimepiride 4 MG TABLET PO SCH (08:16)
[2021-07-08] MEDS: Sennosides/Docusate Sodium TABLET PO SCH ×2 (08:16→22:03)
[2021-07-08] MEDS: cloNIDine HCL 0.1 MG TABLET PO SCH ×2 (08:17→22:03)
[2021-07-08] MEDS: Metoprolol XL (24 HR) Succ 50 MG TAB.ER.24H PO SCH (08:17)
[2021-07-08] MEDS: Furosemide 20 MG TABLET PO SCH (08:17)
[2021-07-08] MEDS: Insulin LISPRO 300 UNITS/3 ML VIAL SUBQ SCH ×4 (08:20→22:04)
[2021-07-08 14:11] LABS: Influenza A PCR Negative (Negative); Influenza B PCR Negative (Negative); Resp. Syncytial Virus PCR Negative (Negative)
[2021-07-08 14:12] LABS: SARS-CoV-2 by PCR (In House) Negative (Negative)
[2021-07-08] MEDS: *HR* HYDROcodone/Acet 5/325 mg TABLET PO PRN (14:13)
[2021-07-08] MEDS ORDERED: COVID 19 MRNA VACCINE IM ONE (17:45)
[2021-07-08] MEDS: Gabapentin 300 MG CAPSULE PO SCH (22:02)
[2021-07-08] MEDS: hydrOXYzine pamoate 25 MG CAPSULE PO PRN (22:03)
[2021-07-08] MEDS: Melatonin 3 MG TABLET PO PRN (22:03)
[2021-07-08] MEDS: Insulin DETEMIR 100 UNIT/ML X5UNITS SUBQ SCH (22:03)
[2021-07-09] MEDS: Levothyroxine 25 MCG TABLET PO SCH ×2 (06:18→09:37)
[2021-07-09] MEDS: *HR* Heparin 5,000 UNIT/ML VIAL SQ SCH ×2 (06:18→17:21)
[2021-07-09] MEDS: Metoprolol XL (24 HR) Succ 50 MG TAB.ER.24H PO SCH (09:37)
[2021-07-09] MEDS: cloNIDine HCL 0.1 MG TABLET PO SCH ×2 (09:37→19:51)
[2021-07-09] MEDS: *HR* Glimepiride 4 MG TABLET PO SCH (09:37)
[2021-07-09] MEDS: Sennosides/Docusate Sodium TABLET PO SCH ×2 (09:37→19:51)
[2021-07-09] MEDS: Insulin LISPRO 300 UNITS/3 ML VIAL SUBQ SCH ×4 (09:38→19:52)
[2021-07-09] MEDS: Furosemide 20 MG TABLET PO SCH (09:38)
[2021-07-09] MEDS: *HR* HYDROcodone/Acet 5/325 mg TABLET PO PRN (19:50)
[2021-07-09] MEDS: Insulin DETEMIR 100 UNIT/ML X5UNITS SUBQ SCH (19:51)
[2021-07-09] MEDS: hydrOXYzine pamoate 25 MG CAPSULE PO PRN (19:51)
[2021-07-09] MEDS: Gabapentin 300 MG CAPSULE PO SCH (19:51)
[2021-07-10] MEDS: *HR* Heparin 5,000 UNIT/ML VIAL SQ SCH ×2 (06:17→18:13)
[2021-07-10] MEDS: *HR* Glimepiride 4 MG TABLET PO SCH (06:17)
[2021-07-10] MEDS: Levothyroxine 25 MCG TABLET PO SCH (08:12)
[2021-07-10] MEDS: Sennosides/Docusate Sodium TABLET PO SCH ×2 (08:12→20:24)
[2021-07-10] MEDS: Metoprolol XL (24 HR) Succ 50 MG TAB.ER.24H PO SCH (08:12)
[2021-07-10] MEDS: Insulin LISPRO 300 UNITS/3 ML VIAL SUBQ SCH ×4 (08:13→20:01)
[2021-07-10] MEDS: cloNIDine HCL 0.1 MG TABLET PO SCH ×2 (08:13→20:00)
[2021-07-10] MEDS: Furosemide 20 MG TABLET PO SCH (08:13)
[2021-07-10] MEDS: Melatonin 3 MG TABLET PO PRN (19:59)
[2021-07-10] MEDS: Gabapentin 300 MG CAPSULE PO SCH (19:59)
[2021-07-10] MEDS: *HR* HYDROcodone/Acet 5/325 mg TABLET PO PRN (20:00)
[2021-07-10] MEDS: hydrOXYzine pamoate 25 MG CAPSULE PO PRN (20:00)
[2021-07-10] MEDS: Insulin DETEMIR 100 UNIT/ML X5UNITS SUBQ SCH (20:00)
[2021-07-11] MEDS: *HR* Heparin 5,000 UNIT/ML VIAL SQ SCH (06:15)
[2021-07-11] MEDS: *HR* HYDROcodone/Acet 5/325 mg TABLET PO PRN (06:15)
[2021-07-11] MEDS: *HR* Glimepiride 4 MG TABLET PO SCH (06:16)
[2021-07-11] MEDS: Levothyroxine 25 MCG TABLET PO SCH (06:16)
[2021-07-11 07:15] VITALS: BP 139/76; PULSE 71; RESP 18; TEMP 97.5; O2SAT 97
[2021-07-11] MEDS: Furosemide 20 MG TABLET PO SCH (07:48)
[2021-07-11] MEDS: Sennosides/Docusate Sodium TABLET PO SCH (07:49)
[2021-07-11] MEDS: Metoprolol XL (24 HR) Succ 50 MG TAB.ER.24H PO SCH (07:49)
[2021-07-11] MEDS: cloNIDine HCL 0.1 MG TABLET PO SCH (07:49)
[2021-07-11] MEDS: Insulin LISPRO 300 UNITS/3 ML VIAL SUBQ SCH (07:50)
[2021-07-11] MEDS ORDERED: Insulin DETEMIR 100 UNIT/ML X5UNITS SUBQ SCH (09:00)
[2021-07-11] MEDS: hydrOXYzine pamoate 25 MG CAPSULE PO PRN (10:23)
[2021-07-11] MEDS ORDERED: *HR* EPINEPHrine 1 MG/10 ML SYRINGE IVP ONE (17:09)
== END 2021-07-11 17:10 | disposition expired ==
LOC: EMEROOPIK 09:23 → INTOOBSV 14:52 → INPPIK 14:52
PROVIDERS: ADMIT Internal Medicine; ATTEND Internal Medicine